=== PATIENT | female | born 1955 | race Caucasian/White ===

== ENCOUNTER 2019-05-07 03:31 | Emergency (ER) | payer OTHER ==
--- OUTSIDE RECORDS SUMMARY | 2019-05-07 03:34 | XMS REPORT ---
:1955 Author Organization eClinicalWorks Care Team Providers Name Role Phone Court Ford Provider Role Unavailable Allergies No Known Allergies Problems Problem Type Condition Code Onset Dates Condition Status Assessment Essential hypertension I10 Active Problem Hyperlipidemia E78.5 Active Problem Hypertension I10 Active Problem Essential hypertension I10 Active Problem Depression, unspecified depression F32.9 Active type Problem Abnormal heart rhythm I49.9 Active Problem Anxiety F41.9 Active Problem Hypercholesterolemia E78.00 Active Medications Medication Code Code Instructions Start End Date Status Dosage System Date Lisinopril-Hyd [facility] 49778570286 20-12.5 MG Active 1 tablet rochlorothiazi Orally Once a de day Results No Known Results Summary Purpose eClinicalWorks Submission
--- OUTSIDE RECORDS SUMMARY | 2019-05-07 03:34 | XMS REPORT ---
:1955 Author Organization eClinicalWorks Care Team Providers Name Role Phone Jamesalex Court Provider Role Unavailable Allergies, Adverse Reactions, Alerts Substance Reaction Event Type codeine Info Not Available Drug Allergy Problems Problem Type Condition Code Onset Dates Condition Status Problem Hypertension I10 Active Problem Anxiety F41.9 Active Assessment Depression, unspecified depression F32.9 Active type Assessment Mixed hyperlipidemia E78.2 Active Assessment Hyperglycemia R73.9 Active Problem Mixed hyperlipidemia E78.2 Active Problem Depression, unspecified depression F32.9 Active type Problem Hyperglycemia R73.9 Active Problem Essential hypertension I10 Active Problem Hyperlipidemia E78.5 Active Problem Abnormal heart rhythm I49.9 Active Problem Hypercholesterolemia E78.00 Active Medications Medication Code Code Instructions Start End Status Dosage System Date Date Prevagen [facility] 72360991550 10 MG Orally Active as directed Collagen Ultra [facility] 10224051693 - Orally Active as directed Cholest Off NDC 0 Active not defined Lisinopril-[place] [facility] 79098539731 20-12.5 MG Active 1 tablet chlorothiazide Orally Once a day Effexor XR [facility] 52982522139 75 MG Orally March 07, Active 1 capsule Once a day 2018 with food Rosuvastatin [facility] 54867419073 10 MG Orally May 02, Active 1 tablet in Calcium Once a day for 2019 evening high cholesterol Ferrous Sulfate [facility] 72979181193 325 (65 Fe) MG Active 1 tablet Orally Once a day Results Name Result Date Reference Range Unit Abnormality Flag HEMOGLOBIN A1C ----A1C 5.3% [id number] Summary Purpose eClinicalWorks Submission
--- OUTSIDE RECORDS SUMMARY | 2019-05-07 03:34 | XMS REPORT ---
:1955 Author Organization eClinicalWorks Care Team Providers Name Role Phone Logan Court Provider Role Unavailable Allergies, Adverse Reactions, Alerts Substance Reaction Event Type codeine Info Not Available Drug Allergy Problems Problem Type Condition Code Onset Dates Condition Status Assessment Hypercholesterolemia E78.00 Active Assessment Essential hypertension I10 Active Assessment Depression, unspecified depression F32.9 Active type Assessment Anxiety F41.9 Active Problem Hyperlipidemia E78.5 Active Problem Hypertension I10 Active Problem Essential hypertension I10 Active Problem Depression, unspecified depression F32.9 Active type Problem Abnormal heart rhythm I49.9 Active Problem Anxiety F41.9 Active Problem Hypercholesterolemia E78.00 Active Medications Medication Code Code Instructions Start End Status Dosage System Date Date Effexor XR [facility] 77070898523 37.5 MG Orally March 07, Active 1 capsule Once a day 2019 with food Ferrous [facility] 28588790515 325 (65 Fe) MG Active 1 tablet Sulfate Orally Once a day Collagen Ultra ND 05075569712 - Orally Active as directed Celexa [facility] 64484287284 20 MG Orally Inactive 2 tablet Once a day Lisinopril-Hyd [facility] 39240611169 20-12.5 MG Active 1 tablet rochlorothiazi Orally Once a de day Cholest Off NDC 0 Active not defined Prevagen [facility] 57366361879 10 MG Orally Active as directed Results No Known Results Summary Purpose eClinicalWorks Submission
--- OUTSIDE RECORDS SUMMARY | 2019-05-07 03:34 | XMS REPORT ---
:1955 Author Organization eClinicalWorks Care Team Providers Name Role Phone Court Ford Provider Role Unavailable Allergies No Known Allergies Problems Problem Type Condition Code Onset Dates Condition Status Problem Hyperlipidemia E78.5 Active Problem Hypertension I10 Active Problem Essential hypertension I10 Active Problem Depression, unspecified depression F32.9 Active type Problem Abnormal heart rhythm I49.9 Active Problem Anxiety F41.9 Active Problem Hypercholesterolemia E78.00 Active Medications No Known Medications Results No Known Results Summary Purpose eClinicalWorks Submission
[2019-05-07] MEDS ORDERED: FENTANYL CITR 100 MCG/2 ML ONE (04:08)
[2019-05-07] MEDS ORDERED: ONDANSETRON 4 MG/2 ML VIAL ONE (04:08)
[2019-05-07] MEDS ORDERED: NA CHLORIDE 0.9% 1,000 ML ONE (04:09)
[2019-05-07 04:26] LABS: Absolute Lymphocytes (CBC) 0.9 K/uL (0.7-4.9); Basophils % 0.4 % (0-1.3); Lymphocytes % 12.7 % (15.3-44.8); MPV 7.7 fL (7.6-11.3); RBC Red Blood Cell Count 4.49 M/uL (3.86-4.86)
[2019-05-07 04:38] LABS: Albumin 3.6 g/dL (3.4-5.0); Bilirubin Direct 0.1 mg/dL (0-0.2); Bilirubin Total 0.5 mg/dL (0.2-1.0); Potassium 3.4 mmol/L (3.5-5.1)
--- NOTE | 2019-05-07 06:07 | EDPHYS ---
Physician Documentation [facility] Name: Starr Verdugo Age: 64 yrs Sex: Female : 1955 Arrival Date: 05/07/2019 Time: 03:33 Bed 16 Private MD: Court Ford ED Physician Alok Martinez HPI: 05/07 05:28 This 64 yrs old Female presents to ER via Ambulatory with complaints of FOOD gs POISON. 05:28 The patient presents to the emergency department with nausea, vomiting, abdominal pain. gs Onset: The symptoms/episode began/occurred yesterday. Possible causes: bad food exposure. The symptoms are aggravated by nothing. The symptoms are alleviated by nothing. Associated signs and symptoms: Pertinent negatives: diarrhea, dysuria, fever. Severity of symptoms: At their worst the symptoms were severe in the emergency department the symptoms have improved moderately. The patient has experienced a previous episode. Historical: - Allergies: 03:57 Codeine; tr5 - Home Meds: 03:57 Crestor oral [Active]; tr5 - PMHx: 03:57 Depression; Hypertension; tr5 - PSHx: 03:57 Tubal ligation; tr5 - Immunization history:: Adult Immunizations up to date. - Social history:: Smoking status: Patient/guardian denies using tobacco, never smoked. - Ebola Screening: : No symptoms or risks identified at this time. ROS: 05:28 All other systems are negative. gs Exam: 05:28 Head/Face: Normocephalic, atraumatic. Eyes: Pupils equal round and reactive to light, gs extra-ocular motions intact. Lids and lashes normal. Conjunctiva and sclera are non-icteric and not injected. Cornea within normal limits. Periorbital areas with no swelling, redness, or edema. ENT: Nares patent. No nasal discharge, no septal abnormalities noted. Tympanic membranes are normal and external auditory canals are clear. Oropharynx with no redness, swelling, or masses, exudates, or evidence of obstruction, uvula midline. Mucous membranes moist. Neck: Trachea midline, no thyromegaly or masses palpated, and no cervical lymphadenopathy. Supple, full range of motion without nuchal rigidity, or vertebral point tenderness. No Meningismus. Chest/axilla: Normal chest wall appearance and motion. Nontender with no deformity. No lesions are appreciated. Cardiovascular: Regular rate and rhythm with a normal S1 and S2. No gallops, murmurs, or rubs. Normal PMI, no JVD. No pulse deficits. Respiratory: Lungs have equal breath sounds bilaterally, clear to auscultation and percussion. No rales, rhonchi or wheezes noted. No increased work of breathing, no retractions or nasal flaring. Back: No spinal tenderness. No costovertebral tenderness. Full range of motion. Skin: Warm, dry with normal turgor. Normal color with no rashes, no lesions, and no evidence of cellulitis. MS/ Extremity: Pulses equal, no cyanosis. Neurovascular intact. Full, normal range of motion. Neuro: Awake and alert, GCS 15, oriented to person, place, time, and situation. Cranial nerves II-XII grossly intact. Motor strength 5/5 in all extremities. Sensory grossly intact. Cerebellar exam normal. Normal gait. 05:28 Constitutional: The patient appears alert, awake, uncomfortable. 05:28 Abdomen/GI: Palpation: moderate abdominal tenderness, in the right upper quadrant and left upper quadrant, rebound tenderness, is not appreciated. 05:28 ECG was reviewed by the Attending Physician. Vital Signs: 03:57 BP 133 / 85; Pulse 62; Resp 16; Temp 97.8; Pulse Ox 100% on R/A; Weight 83.91 kg; tr5 Height 5 ft. 7 in. (170.18 cm); 05:00 BP 141 / 73; Pulse 60; Resp 16; Pulse Ox 100% ; tr5 03:57 Body Mass Index 28.97 (83.91 kg, 170.18 cm) tr5 MDM: 03:51 Patient medically screened. 05:28 Differential diagnosis: gastritis, pancreatitis, viral gastroenteritis, gs gastroenteritis. Data reviewed: vital signs, nurses notes, lab test result(s), EKG, radiologic studies. Counseling: I had a detailed discussion with the patient and/or guardian regarding: the historical points, exam findings, and any diagnostic results supporting the discharge/admit diagnosis, lab results, radiology results. Response to treatment: the patient's symptoms have markedly improved after treatment. 05/07 03:54 Order name: Basic Metabolic Panel; Complete Time: 04:41 05/07 03:54 Order name: CBC with Diff; Complete Time: 04:41 05/07 03:54 Order name: Hepatic Function; Complete Time: 04:41 05/07 03:54 Order name: Lipase; Complete Time: 04:41 05/07 03:54 Order name: CT Abd/Pelvis - IV Contrast Only 05/07 03:54 Order name: IV Saline Lock; Complete Time: 04:37 05/07 03:54 Order name: Labs collected and sent; Complete Time: 04:37 05/07 03:54 Order name: EKG - Nurse/Tech; Complete Time: 04:36 gs EC:28 Rate is 61 beats/min. Rhythm is regular. NC interval is normal. QRS interval is normal. gs QT interval is normal. Q waves are Old in leads V1, V2. T waves are Normal. No ST changes noted. Clinical impression: Abnormal EKG without significant change. Interpreted by me. Administered Medications: 04:30 Drug: NS 0.9% 1000 ml Route: IV; Rate: 1 bolus; Site: left forearm; aa1 05:58 Follow up: Response: No adverse reaction; IV Status: Completed infusion; IV Intake: tr5 1000ml 04:30 Drug: Zofran 4 mg Route: IVP; Site: left forearm; aa1 05:57 Follow up: Response: Nausea is decreased tr5 04:32 Drug: fentaNYL (PF) 25 mcg Route: IVP; Site: left forearm; aa1 05:57 Follow up: Response: Pain is decreased; RASS: Alert and Calm (0) tr5 Disposition: 05/07/19 06:06 Discharged to Home. Impression: Vomiting, Ileus, unspecified. - Condition is Stable. - Discharge Instructions: Nausea and Vomiting, Adult. - Prescriptions for Zofran 4 mg Oral Tablet - take 1 tablet by ORAL route every 12 hours As needed; 10 tablet. - Medication Reconciliation Form, Thank You Letter, Antibiotic Education, Prescription Opioid Use form. - Follow up: Private Physician; When: 2 - 3 days; Reason: Re-evaluation by your physician. Signatures: Dispatcher [employer] EDMS Esme Lucas RN RN aa1 Alok Martinez MD MD gs Rodriguez, Tommie RN RN tr5 Corrections: (The following items were deleted from the chart) 06:45 06:06 05/07/2019 06:06 Discharged to Home. Impression: Vomiting; Ileus, unspecified. tr5 Condition is Stable. Forms are Medication Reconciliation Form, Thank You Letter, Antibiotic Education, Prescription Opioid Use. Follow up: Private Physician; When: 2 - 3 days; Reason: Re-evaluation by your physician. gs
--- NOTE | 2019-05-07 06:07 | ER ---
Nurse's Notes [facility] Name: Starr Verdugo Age: 64 yrs Sex: Female : 1955 Arrival Date: 05/07/2019 Time: 03:33 Bed 16 Private MD: Court Ford Diagnosis: Vomiting;Ileus, unspecified Presentation: 05/07 03:54 Presenting complaint: Patient states: She has been experiencing nausea, vomiting and tr5 abdominal cramps since about 9 last night. She think it might be food poisoning. Transition of care: patient was not received from another setting of care. Onset of symptoms was May 07, 2019. Risk Assessment: Do you want to hurt yourself or someone else? Patient reports no desire to harm self or others. Initial Sepsis Screen: Does the patient meet any 2 criteria? No. Patient's initial sepsis screen is negative. Does the patient have a suspected source of infection? No. Patient's initial sepsis screen is negative. Care prior to arrival: None. 03:54 Method Of Arrival: Ambulatory tr5 03:54 Acuity: RODERICK 3 tr5 Triage Assessment: 03:57 General: Appears comfortable, Behavior is calm, cooperative. Pain: Complains of pain in tr5 abdomen. EENT: No signs and/or symptoms were reported regarding the EENT system. Neuro: Level of Consciousness is awake, alert, obeys commands, Oriented to person, place, time. Cardiovascular: Heart tones present Capillary refill < 3 seconds. Respiratory: Airway is patent Trachea midline Respiratory effort is even, unlabored, Respiratory pattern is regular, symmetrical, Breath sounds are clear bilaterally. GI: Reports upper abdominal pain, nausea, vomiting. : No signs and/or symptoms were reported regarding the genitourinary system. Derm: Skin is dry, Skin is normal, Skin temperature is warm. Musculoskeletal: Capillary refill < 3 seconds, Range of motion: intact in all extremities. Historical: - Allergies: 03:57 Codeine; tr5 - Home Meds: 03:57 Crestor oral [Active]; tr5 - PMHx: 03:57 Depression; Hypertension; tr5 - PSHx: 03:57 Tubal ligation; tr5 - Immunization history:: Adult Immunizations up to date. - Social history:: Smoking status: Patient/guardian denies using tobacco, never smoked. - Ebola Screening: : No symptoms or risks identified at this time. Screenin:00 Abuse screen: Denies threats or abuse. Nutritional screening: No deficits noted. tr5 Tuberculosis screening: No symptoms or risk factors identified. Fall Risk None identified. Assessment: 04:00 Reassessment: See triage. General:. tr5 04:30 Reassessment: Patient's granddaughter Radha left her contact number [phone]. 3 05:30 Reassessment: Patient and/or family updated on plan of care and expected duration. Pain tr5 level reassessed. Patient is alert, oriented x 3, equal unlabored respirations, skin warm/dry/pink. Pt appears to be sleeping in bed. Vital Signs: 03:57 BP 133 / 85; Pulse 62; Resp 16; Temp 97.8; Pulse Ox 100% on R/A; Weight 83.91 kg; tr5 Height 5 ft. 7 in. (170.18 cm); 05:00 BP 141 / 73; Pulse 60; Resp 16; Pulse Ox 100% ; tr5 03:57 Body Mass Index 28.97 (83.91 kg, 170.18 cm) tr5 ED Course: 03:33 Patient arrived in ED. cl3 03:34 [address] Ford MD is Private Physician. cl3 03:43 Nic Hi, RN is Primary Nurse. tr5 03:51 Alok Martinez MD is Attending Physician. gs 03:56 Triage completed. tr5 03:57 Arm band placed on. tr5 04:00 Placed in gown. Bed in low position. Call light in reach. tr5 04:30 Initial lab(s) drawn, by ut, sent to lab. Inserted saline lock: 20 gauge in left aa1 forearm, using aseptic technique. Blood collected. 04:35 EKG done, by ED staff, reviewed by Alok Martinez MD. aa1 05:14 CT completed. Patient tolerated procedure well. Patient moved to CT via stretcher. Patient moved back from CT. 05:21 CT Abd/Pelvis - IV Contrast Only In Process Unspecified. EDMS 06:26 No provider procedures requiring assistance completed. IV discontinued. tr5 Administered Medications: 04:30 Drug: NS 0.9% 1000 ml Route: IV; Rate: 1 bolus; Site: left forearm; aa1 05:58 Follow up: Response: No adverse reaction; IV Status: Completed infusion; IV Intake: tr5 1000ml 04:30 Drug: Zofran 4 mg Route: IVP; Site: left forearm; aa1 05:57 Follow up: Response: Nausea is decreased tr5 04:32 Drug: fentaNYL (PF) 25 mcg Route: IVP; Site: left forearm; aa1 05:57 Follow up: Response: Pain is decreased; RASS: Alert and Calm (0) tr5 Intake: 05:58 IV: 1000ml; Total: 1000ml. tr5 Outcome: 06:06 Discharge ordered by . 06:26 Discharged to home ambulatory. tr5 06:26 Condition: stable 06:26 Discharge instructions given to patient, Instructed on discharge instructions, follow up and referral plans. Demonstrated understanding of instructions, follow-up care. 06:45 Patient left the ED. tr5 Signatures: Dispatcher [employer] EDMS Esme Lucas RN RN aa1 Nomi Tanner Gregory, MD MD Jaimie Issa cc3 Nic Hi RN RN tr5 Angela Casas cl3
--- NOTE | 2019-05-07 09:43 | RAD REPORT ---
CLINICAL HISTORY: Abdominal pain. COMPARISON: None. TECHNIQUE: Axial CT imaging of the abdomen and pelvis performed with intravenous contrast. Reformatt ed coronal and sagittal images reviewed. A dose reduction technique was utilized with automated exposure control according to patient size. FINDINGS: LOWER THORAX: Lung bases are clear. Heart is normal in size. ABDOMEN: LIVER/GALLBLADDER: Mild decreased liver attenuation due to fatty infiltration. No liver mass or bili miladys dilatation. Normal gallbladder. SPLEEN/PANCREAS: Normal spleen. Normal pancreas. KIDNEYS/ADRENAL GLANDS: Normal adrenal glands. Normal right kidney. Anterior left renal cortical 1.3 cm stone. No hydronephrosis. No perinephric edema. RETROPERITONEAL VESSELS/NODES: Normal aorta and inferior vena cava caliber. There is a retroaortic l eft renal vein. No adenopathy. Normal mesenteric vessels. BOWEL: Normal stomach. The small bowel caliber is within normal limits. There are several fluid leve ls within the small bowel with several fecalized segments in the pelvis. There is mild wall thickenin g within a short segment of small bowel within the upper pelvis. Appendix is not visualized. Unremark able colon. MESENTERY/PERITONEUM: There is mild inferior mesenteric edema. There is no free air. No ascites. PELVIS: BLADDER/GENITAL ORGANS: Normal bladder. Normal uterus. PERITONEUM: Mild pelvic free fluid. No pelvic adenopathy. BONES AND SOFT TISSUES: Multilevel mild lumbar disc bulges. L4-5 and L5-S1 vacuum disc change. Mild lower lumbar facet arthropathy. Intact bony pelvis. Normal hips. IMPRESSION: 1. Mild small bowel enteritis and ileus. 2. Fatty liver. 3. Nonobstructing left renal 1.3 cm stone. 4. Mild pelvic free fluid.. Electronically signed by: Rosemary Bowles DO 05/07/2019 5:29 AM CDT Due to temporary technical issues with the PACS/Fluency reporting system, reports are being signed by the in house radiologist as a courtesy to ensure prompt reporting. The interpreting radiologist is f reemaly responsible for the content of the report.
--- NOTE | 2019-05-07 10:41 | EKG ---
Test Date: 2019-05-07 Test Time: 04:25:29 [employer] Floor [employer] Applier: APRIL MEASUREMENT RESULTS: Intervals: Rate: 61 SC: 160 QRSD: 76 QT: 428 QTc: 430 [place]: P: 43 SC: 160 QRS: 53 T: 34 INTERPRETIVE STATEMENTS: Normal sinus rhythm Septal infarct, age undetermined Abnormal ECG Compared to ECG 02/14/2002 12:56:00 Myocardial infarct finding now present Electronically Signed On 05-07-19 10:39:36 CDT by Heber De Leon
== END 2019-05-07 06:45 | disposition home or self-care (01) ==
LOC: ER 03:31
DX: K56.7 Ileus, unspecified (principal); K76.0 Fatty (change of) liver, not elsewhere classified; N20.0 Calculus of kidney; I10 Essential (primary) hypertension; F32.9 Major depressive disorder, single episode, unspecified; Z88.5 Allergy status to narcotic agent
CPT/HCPCS: 96361; 93005; 85025; 80048; 36415; 80076; 83690; 74177; 96375; 96374; 99284; Q9967; J3010; J7030; J2405

== ENCOUNTER 2019-09-27 23:39 | Emergency (ER) | payer MEDICARE ==
--- OUTSIDE RECORDS SUMMARY | 2019-09-27 23:42 | XMS REPORT ---
:1955 Author Organization eClinicalWorks Care Team Providers Name Role Phone Court Ford Provider Role Unavailable Allergies, Adverse Reactions, Alerts Substance Reaction Event Type codeine Info Not Available Drug Allergy Problems Problem Type Condition Code Onset Dates Condition Status Problem Hyperglycemia R73.9 Active Problem Right upper quadrant abdominal pain R10.11 Active Problem Ileus K56.7 Active Problem Other chronic pain G89.29 Active Assessment Hypercholesterolemia E78.00 Active Problem Left thigh pain M79.652 Active Assessment Anxiety F41.9 Active Assessment Depression, unspecified depression F32.9 Active type Problem Low back pain M54.5 Active Problem Vomiting, intractability of R11.10 Active vomiting not specified, presence of nausea not specified, unspecified vomiting type Problem Enteritis K52.9 Active Problem Left leg paresthesias R20.2 Active Problem Nausea and vomiting, intractability R11.2 Active of vomiting not specified, unspecified vomiting type Problem Anxiety F41.9 Active Problem Hypertension I10 Active Assessment Essential hypertension I10 Active Problem Hypercholesterolemia E78.00 Active Problem Abnormal heart rhythm I49.9 Active Problem Hyperlipidemia E78.5 Active Problem Depression, unspecified depression F32.9 Active type Problem Essential hypertension I10 Active Problem Mixed hyperlipidemia E78.2 Active Medications Medication Code Code Instructions Start End Status Dosage System Date Date Effexor XR [facility] 33413407925 37.5 MG Orally Active 1 capsule Once a day with food Pravastatin ND 29647490346 10 MG Orally May 09, Active 1 tablet Sodium Once a day 2019 Cholest Off NDC 0 Active not defined Ferrous Sulfate ND 09837298932 325 (65 Fe) MG Active 1 tablet Orally Once a day Prevagen ND 27717417139 10 MG Orally Active as directed Lisinopril-[place] ND 41210210724 20-12.5 MG Active 1 tablet chlorothiazide Orally Once a day Rosuvastatin ND 30266438573 10 MG Orally May 02, Active 1 tablet in Calcium Once a day for 2019 evening high cholesterol Collagen Ultra ND 97453180043 - Orally Active as directed Results No Known Results Summary Purpose eClinicalWorks Submission
--- OUTSIDE RECORDS SUMMARY | 2019-09-27 23:42 | XMS REPORT ---
:1955 Author Organization eClinicalWorks Care Team Providers Name Role Phone Court Ford Provider Role Unavailable Allergies No Known Allergies Problems Problem Type Condition Code Onset Dates Condition Status Problem Hyperglycemia R73.9 Active Problem Right upper quadrant abdominal pain R10.11 Active Problem Ileus K56.7 Active Problem Other chronic pain G89.29 Active Problem Left thigh pain M79.652 Active Problem Low back pain M54.5 Active Problem Vomiting, intractability of R11.10 Active vomiting not specified, presence of nausea not specified, unspecified vomiting type Problem Enteritis K52.9 Active Problem Left leg paresthesias R20.2 Active Problem Nausea and vomiting, intractability R11.2 Active of vomiting not specified, unspecified vomiting type Problem Anxiety F41.9 Active Problem Hypertension I10 Active Assessment Anxiety F41.9 Active Problem Hypercholesterolemia E78.00 Active Problem Abnormal heart rhythm I49.9 Active Problem Hyperlipidemia E78.5 Active Problem Depression, unspecified depression F32.9 Active type Problem Essential hypertension I10 Active Problem Mixed hyperlipidemia E78.2 Active Medications Medication Code System Code Instructions Start End Date Status Dosage Date Effexor XR [facility] 99031266654 37.5 MG Orally Active 1 capsule Once a day with food Results No Known Results Summary Purpose eClinicalWorks Submission
--- OUTSIDE RECORDS SUMMARY | 2019-09-27 23:42 | XMS REPORT ---
[...] Anxiety F41.9 Active Problem Hypertension I10 Active Problem Hypercholesterolemia E78.00 Active Problem Abnormal heart rhythm I49.9 Active Problem Hyperlipidemia E78.5 Active Problem Depression, unspecified depression F32.9 Active type Problem Essential hypertension I10 Active Problem Mixed hyperlipidemia E78.2 Active Medications No Known Medications Results No Known Results Summary Purpose eClinicalWorks Submission
[2019-09-28] MEDS ORDERED: NA CHLORIDE 0.9% 1,000 ML ONE (01:24)
[2019-09-28 01:34] LABS: Absolute Lymphocytes (CBC) 1.4 K/uL (0.7-4.9); Basophils % 1.2 % (0-1.3); Hematocrit 34.6 % (36.0-45.0); MPV 7.6 fL (7.6-11.3); RBC Red Blood Cell Count 3.67 M/uL (3.86-4.86)
[2019-09-28 02:13] LABS: Urine Bacteria 20-50 /HPF (<20); Urine RBC <5 /HPF (NONE SEEN)
[2019-09-28 02:14] LABS: Urine Amorphous Sediment 1+ /HPF (NONE SEEN); Urine Culture Reflex Order NOT NEEDED; Urine Mucus 3+ /HPF (NONE SEEN)
[2019-09-28 02:31] LABS: BUN Blood Urea Nitrogen 18 mg/dL (7-18); Bicarbonate 31 mmol/L (21-32); Glucose Level 119 mg/dL (74-106); Potassium 3.5 mmol/L (3.5-5.1); Sodium Level 142 mmol/L (136-145); Troponin (Emerg Dept Use Only) < 0.02 ng/mL (0.0-0.045)
--- NOTE | 2019-09-28 02:36 | ER ---
Nurse's Notes [facility] Name: Starr Verdugo Age: 64 yrs Sex: Female : 1955 Arrival Date: 09/27/2019 Time: 23:41 Bed 5 Private MD: Diagnosis: Malaise and fatigue;Urinary tract infection, site not specified Presentation: 09/27 23:54 Presenting complaint: Patient states: her blood pressure has been fluctuating all day, bb she is feeling SOB, and has a slight headache, she "just doesn't feel right". Transition of care: patient was not received from another setting of care. Onset of symptoms was September 27, 2019. Risk Assessment: Do you want to hurt yourself or someone else? Patient reports no desire to harm self or others. Initial Sepsis Screen: Does the patient meet any 2 criteria? No. Patient's initial sepsis screen is negative. Does the patient have a suspected source of infection? No. Patient's initial sepsis screen is negative. Care prior to arrival: None. 23:54 Method Of Arrival: Ambulatory bb 23:54 Acuity: RODERICK 3 bb Historical: - Allergies: 23:57 Codeine; bb - Home Meds: 23:57 lisinopril-hydrochlorothiazide oral oral [Active]; Effexor Oral [Active]; pravastatin bb oral oral [Active]; - PMHx: 23:57 Depression; Hypertension; bb - PSHx: 23:57 Tubal ligation; heart ablation; bb - Immunization history:: Adult Immunizations up to date. - Social history:: Smoking status: Patient/guardian denies using tobacco. - Ebola Screening: : No symptoms or risks identified at this time. Screenin/03 01:01 Abuse screen: Denies threats or abuse. Nutritional screening: No deficits noted. jd3 Tuberculosis screening: No symptoms or risk factors identified. Fall Risk Ambulatory Aid- None/Bed Rest/Nurse Assist (0 pts). Gait- Normal/Bed Rest/Wheelchair (0 pts) Mental Status- Oriented to own ability (0 pts). Total Esposito Fall Scale indicates No Risk (0-24 pts). Assessment: 00:00 General: Appears in no apparent distress. comfortable, Behavior is calm, cooperative, jd3 appropriate for age. Pain: Denies pain. Neuro: Level of Consciousness is awake, alert, obeys commands, Oriented to person, place, time, situation. Cardiovascular: Capillary refill < 3 seconds Patient's skin is warm and dry. Rhythm is regular. Respiratory: Reports pt reporting shortness of breath prior to arrival Airway is patent Respiratory effort is even, unlabored, Respiratory pattern is regular, symmetrical, the patient reports symptoms have resolved Denies cough, shortness of breath. GI: No signs and/or symptoms were reported involving the gastrointestinal system. : No signs and/or symptoms were reported regarding the genitourinary system. EENT: No signs and/or symptoms were reported regarding the EENT system. Derm: Skin is intact, Skin is dry, Skin is normal, Skin temperature is warm. Musculoskeletal: Circulation, motion, and sensation intact. Range of motion: intact in all extremities. 01:03 Reassessment: Patient appears in no apparent distress at this time. No changes from jd3 previously documented assessment. Patient and/or family updated on plan of care and expected duration. Pain level reassessed. Patient is alert, oriented x 3, equal unlabored respirations, skin warm/dry/pink. 02:09 Reassessment: Patient appears in no apparent distress at this time. No changes from jd3 previously documented assessment. Patient and/or family updated on plan of care and expected duration. Pain level reassessed. Patient is alert, oriented x 3, equal unlabored respirations, skin warm/dry/pink. Vital Signs: 09/27 23:57 BP 128 / 62; Pulse 81; Resp 16 S; Temp 97.7(TE); Pulse Ox 96% on R/A; Weight 86.18 kg bb (R); Height 5 ft. 7 in. (170.18 cm) (R); Pain 0/10; 01 01:04 BP 119 / 65; Pulse 75; Resp 18 S; Pulse Ox 97% on R/A; jd3 02:09 BP 134 / 75; Pulse 70; Resp 16 S; Pulse Ox 97% on R/A; jd3 09/27 23:57 Body Mass Index 29.76 (86.18 kg, 170.18 cm) bb ED Course: 09/27 23:41 Patient arrived in ED. cl3 23:53 Jese Lisa RN is Primary Nurse. jd3 23:56 Triage completed. bb 23:57 Arm band placed on Patient placed in an exam room, on a stretcher, on carpenter supervisor, bb on pulse oximetry. EKG completed in triage. Results shown to MD. 09/28 00:07 Edna Lucas FNP-C is PHCP. snw 00:07 Ghassan Mattson MD is Attending Physician. snw 00:16 Flu Sent. jd3 01:03 Patient has correct armband on for positive identification. Placed in gown. Bed in low jd3 position. Call light in reach. Side rails up X2. 01:10 Chest Pa And Lat (2 Views) XRAY In Process Unspecified. EDMS 01:20 Inserted saline lock: 20 gauge in right antecubital area, using aseptic technique. jd3 Blood collected. 03:19 No provider procedures requiring assistance completed. jd3 03:21 IV discontinued, intact, bleeding controlled, No redness/swelling at site. Pressure jd3 dressing applied. Administered Medications: 01:25 Drug: NS 0.9% 1000 ml Route: IV; Rate: 125 ml/hr; Site: right antecubital; jd3 03:20 Follow up: Response: No adverse reaction; IV Status: Order to discontinue infusion jd3 03:15 Drug: Rocephin 1 grams Route: IV; Rate: calculated rate; Site: right antecubital; jd3 03:19 Follow up: Response: Medication administered at discharge.; IV Status: Completed jd3 infusion Outcome: 02:34 Discharge ordered by MD. snw 03:21 Discharged to home ambulatory. jd3 03:21 Condition: stable 03:21 Discharge instructions given to patient, Instructed on discharge instructions, follow up and referral plans. medication usage, Demonstrated understanding of instructions, follow-up care, medications, Prescriptions given X 1. 03:21 Patient left the ED. jd3 Signatures: Dispatcher [employer] [facility] Edna Lucas FNP-C [employer] TESTER-Osvaldow Monserrat Marroquin RN RN Jese Doherty RN RN Angela Machado cl3 Corrections: (The following items were deleted from the chart) 02:09 01:03 Reassessment: Patient appears in no apparent distress at this time. No changes jd3 from previously documented assessment. Patient and/or family updated on plan of care and expected duration. Pain level reassessed. Patient is alert, oriented x 3, equal unlabored respirations, skin warm/dry/pink. jd3
--- NOTE | 2019-09-28 02:37 | EDPHYS ---
Physician Documentation [facility] Name: Starr Verdugo Age: 64 yrs Sex: Female : 1955 Arrival Date: 09/27/2019 Time: 23:41 Bed 5 Private MD: ED Physician Ghassan Mattson HPI: 09/28 01:16 This 64 yrs old Female presents to ER via Ambulatory with complaints of High snw Blood Pressure, Shortness Of Breath. 01:16 The patient has elevated blood pressure and discovered this at home, with a home snw device. Onset: The symptoms/episode began/occurred today, and became persistent. Modifying factors: The symptoms are aggravated by nothing. Associated signs and symptoms: Pertinent positives: sinus pressure, vague shortness of breath. The patient has not experienced similar symptoms in the past. Historical: - Allergies: 09/27 23:57 Codeine; bb - Home Meds: 23:57 lisinopril-hydrochlorothiazide oral oral [Active]; Effexor Oral [Active]; pravastatin bb oral oral [Active]; - PMHx: 23:57 Depression; Hypertension; bb - PSHx: 23:57 Tubal ligation; heart ablation; bb - Immunization history:: Adult Immunizations up to date. - Social history:: Smoking status: Patient/guardian denies using tobacco. - Ebola Screening: : No symptoms or risks identified at this time. ROS: 09/28 01:15 Eyes: Negative for injury, pain, redness, and discharge, ENT: Negative for injury, snw pain, and discharge, Neck: Negative for injury, pain, and swelling, Cardiovascular: Negative for chest pain, palpitations, and edema. Abdomen/GI: Negative for abdominal pain, nausea, vomiting, diarrhea, and constipation, Back: Negative for injury and pain, : Negative for injury, bleeding, discharge, and swelling, MS/Extremity: Negative for injury and deformity, Skin: Negative for injury, rash, and discoloration. Constitutional: Positive for malaise. Respiratory: Positive for shortness of breath, mild. Neuro: Positive for "sinus pressure". Exam: 01:15 Constitutional: This is a well developed, well nourished patient who is awake, alert, snw and in no acute distress. Head/Face: Normocephalic, atraumatic. Eyes: Pupils equal round and reactive to light, extra-ocular motions intact. Lids and lashes normal. Conjunctiva and sclera are non-icteric and not injected. Cornea within normal limits. Periorbital areas with no swelling, redness, or edema. ENT: Nares patent. No nasal discharge, no septal abnormalities noted. Tympanic membranes are normal and external auditory canals are clear. Oropharynx with no redness, swelling, or masses, exudates, or evidence of obstruction, uvula midline. Mucous membranes moist. Neck: Trachea midline, no thyromegaly or masses palpated, and no cervical lymphadenopathy. Supple, full range of motion without nuchal rigidity, or vertebral point tenderness. No Meningismus. Chest/axilla: Normal chest wall appearance and motion. Nontender with no deformity. No lesions are appreciated. Cardiovascular: Regular rate and rhythm with a normal S1 and S2. No gallops, murmurs, or rubs. Normal PMI, no JVD. No pulse deficits. Respiratory: Lungs have equal breath sounds bilaterally, clear to auscultation and percussion. No rales, rhonchi or wheezes noted. No increased work of breathing, no retractions or nasal flaring. Abdomen/GI: Soft, non-tender, with normal bowel sounds. No distension or tympany. No guarding or rebound. No evidence of tenderness throughout. Back: No spinal tenderness. No costovertebral tenderness. Full range of motion. Skin: Warm, dry with normal turgor. Normal color with no rashes, no lesions, and no evidence of cellulitis. MS/ Extremity: Pulses equal, no cyanosis. Neurovascular intact. Full, normal range of motion. Neuro: Awake and alert, GCS 15, oriented to person, place, time, and situation. Cranial nerves II-XII grossly intact. Motor strength 5/5 in all extremities. Sensory grossly intact. Cerebellar exam normal. Normal gait. Psych: Awake, alert, with orientation to person, place and time. Behavior, mood, and affect are within normal limits. Vital Signs: 09/27 23:57 BP 128 / 62; Pulse 81; Resp 16 S; Temp 97.7(TE); Pulse Ox 96% on R/A; Weight 86.18 kg bb (R); Height 5 ft. 7 in. (170.18 cm) (R); Pain 0/10; 09/28 01:04 BP 119 / 65; Pulse 75; Resp 18 S; Pulse Ox 97% on R/A; jd3 02:09 BP 134 / 75; Pulse 70; Resp 16 S; Pulse Ox 97% on R/A; jd3 09/27 23:57 Body Mass Index 29.76 (86.18 kg, 170.18 cm) bb MDM: 00:13 Patient medically screened. geraldine 02:40 Data reviewed: vital signs, nurses notes. Data interpreted: Pulse oximetry: on room air snw is 97 %. Interpretation: normal. Counseling: I had a detailed discussion with the patient and/or guardian regarding: the historical points, exam findings, and any diagnostic results supporting the discharge/admit diagnosis, lab results, the need for outpatient follow up, for definitive care, to return to the emergency department if symptoms worsen or persist or if there are any questions or concerns that arise at home. Special discussion: I have referred the patient to see his PCP for further evaluation of high blood pressure. Based on the history and exam findings, there is no indication for further emergent testing or inpatient evaluation. I discussed with the patient/guardian the need to see the primary care provider for further evaluation of the symptoms. 09/28 00:08 Order name: Flu snw 09/28 00:37 Order name: Influenza Screen (A EDMS 09/28 00:40 Order name: Urine Culture snw 09/28 00:40 Order name: Urine Microscopic Only; Complete Time: 02:14 snw 09/28 01:00 Order name: Troponin (emerg Dept Use Only); Complete Time: 02:32 snw 09/28 01:00 Order name: Chem 7; Complete Time: 02:32 snw 09/28 00:08 Order name: Chest Pa And Lat (2 Views) XRAY snw 09/28 00:14 Order name: EKG; Complete Time: 00:15 snw 09/28 00:14 Order name: EKG - Nurse/Tech; Complete Time: 00:16 snw 09/28 00:40 Order name: Urine Dipstick-Ancillary (obtain specimen); Complete Time: 01:25 snw 09/28 01:00 Order name: CBC with Diff; Complete Time: 01:40 snw 09/28 01:00 Order name: Blood Culture Adult (2) snw Administered Medications: 01:25 Drug: NS 0.9% 1000 ml Route: IV; Rate: 125 ml/hr; Site: right antecubital; jd3 03:20 Follow up: Response: No adverse reaction; IV Status: Order to discontinue infusion jd3 03:15 Drug: Rocephin 1 grams Route: IV; Rate: calculated rate; Site: right antecubital; jd3 03:19 Follow up: Response: Medication administered at discharge.; IV Status: Completed jd3 infusion Disposition: 09/28/19 02:34 Discharged to Home. Impression: Malaise and fatigue, Urinary tract infection, site not specified. - Condition is Stable. - Discharge Instructions: Urinary Tract Infection, Adult, Fatigue, Rehydration, Adult, Form - Blood Pressure Record Sheet. - Prescriptions for Augmentin 875- 125 mg Oral Tablet - take 1 tablet by ORAL route every 12 hours for 10 days; 20 tablet. - Medication Reconciliation Form, Thank You Letter, Antibiotic Education, Prescription Opioid Use form. - Follow up: Private Physician; When: 2 - 3 days; Reason: Recheck today's complaints, Continuance of care, Re-evaluation by your physician. Follow up: Emergency Department; When: As needed; Reason: Worsening of condition. Addendum: 10/01/2019 09:24 Co-signature as Attending Physician, Ghassan Mattson MD I agree with the assessment and c best plan of care. Signatures: Dispatcher [employer] [facility] Ghassan Mattson MD MD cha Therrien, Shelly, MIDDLE SCHOOL DIRECTOR-C [employer]DLE SCHOOL DIRECTOR-Csnw Monserrat Marroquin RN RN bb Davies, Jonathon, RN RN jd3 Corrections: (The following items were deleted from the chart) 09/28 03:21 02:34 09/28/2019 02:34 Discharged to Home. Impression: Malaise and fatigue; Urinary jd3 tract infection, site not specified. Condition is Stable. Forms are Medication Reconciliation Form, Thank You Letter, Antibiotic Education, Prescription Opioid Use. Follow up: Private Physician; When: 2 - 3 days; Reason: Recheck today's complaints, Continuance of care, Re-evaluation by your physician. Follow up: Emergency Department; When: As needed; Reason: Worsening of condition. snw
[2019-09-28] MEDS ORDERED: CEFTRIAXONE/SWI 1gm 1 GM/10 ML SYR ONE (03:13)
[2019-09-28 03:28] VITALS: TEMP 97.7
[2019-09-28 03:29] VITALS: O2SAT 97
[2019-09-28 03:31] VITALS: BP 134/75
--- NOTE | 2019-09-28 09:12 | RAD REPORT ---
EXAM DESCRIPTION: RAD - Chest Pa And Lat (2 Views) - 09/28/2019 12:44 am CLINICAL HISTORY: DYSPNEA COMPARISON: No comparisons TECHNIQUE: Frontal and lateral views of the chest were obtained. FINDINGS: The lungs are clear of focal finding. Interstitial pattern is prominent as a baseline. H eart size is normal and central vasculature is within normal limits. No pleural effusion or pneumoth orax seen. No acute bony finding noted. No aortic abnormality. IMPRESSION: No acute cardiopulmonary process. Mild prominent interstitial pattern.
--- NOTE | 2019-09-28 13:49 | EKG ---
Test Date: 2019-09-27 Test Time: 23:59:01 [employer]otive [employer] Coordinator: ABA MEASUREMENT RESULTS: Intervals: Rate: 72 IA: 164 QRSD: 74 QT: 390 QTc: 427 [place]: P: 47 IA: 164 QRS: 26 T: 29 INTERPRETIVE STATEMENTS: Normal sinus rhythm Normal ECG Compared to ECG 05/07/2019 04:25:29 Myocardial infarct finding no longer present Electronically Signed On 09-28-19 13:47:02 [employer] MEMBER by Darell Bustos
== END 2019-09-28 03:21 | disposition home or self-care (01) ==
LOC: ER 23:39
DX: N39.0 Urinary tract infection, site not specified (principal); R53.81 Other malaise; R53.83 Other fatigue; I10 Essential (primary) hypertension; F32.9 Major depressive disorder, single episode, unspecified; Z88.5 Allergy status to narcotic agent
CPT/HCPCS: 96361; 93005; 87040 ×2; 87088; 85025; 87086; 80048; 36415; 81015; 84484; 87804 ×2; 71046; 96374; 99284; J0696; J7030

== ENCOUNTER 2024-12-17 20:54 | Emergency (ER) | payer MEDICARE ==
--- OUTSIDE RECORDS SUMMARY | 2024-12-17 21:01 | XMS REPORT | Continuity of Care Document ---
Author Name Unknown Address [address] [facility] [place] [address] [facility] Address [address] [facility] [place] [address] Care Team Providers [facility] Name Role Phone Joanie AVILA, Fareed Ruffin Primary Care Physician Michael Chairez Attending Clinician Unavailable Alok Cole Attending Clinician UnavailCourt [place] Attending Clinician Unavailable Gonzalo Morris Attending Clinician Unavailable Rick Witt Attending Clinician Isabel Alford Attending Clinician Peggy Mosqueda Attending Clinician [phone] [place]var[place] Attending Clinician Unavailable Doctor Unassigned, Boring Attending Clinician U navailable Nurse, Adc Pob Immunization Attending Clinician Unavailable Maxwell Hilario DO Attending Clinician [phone] Mj Joy MD Attending Clinician Nasim Perez MD Attending Clinician NASIM PEREZ Attending Clinician Unavailable Alok Cole Admitting Clinician UnavailGonzalo Peres Admitting Clinician Unavailable Alvarado_A Admitting Clinician Unavailable MJ JOY Admitting Clinician Unavailable Payers Payer Name Policy Type Policy Number Effective Date Expirati on Date Source [employer] (MEDICARE REPLACEMENT HMO) [id number] 2022 00:00:00 AARP Medicare Complete 53 [id number] [facility] Problems Condition Name Condition Details Condition Category Status Onset Date Resolution Date Last Treatment Date Treating Clinician Comments Source [id number] Paroxysmal SVT (supravent ricular tachycardi a) Problem [facility] [id number] SVT (supravent ricular tachycardi a) Problem [facility] [id number] Body mass index [BMI] 32.0-32.9, adult Problem [facility] [id number] Atrial fibrillati on, unspecifie d type Problem [facility] [id number] Other obesity due to excess calories Problem [facility] Arterioscl erotic heart disease Coronary artery disease involving [place] coronary artery of [place] heart, unspecifie d whether angina present Problem [facility] [id number] Tear of right rotator cuff, unspecifie d tear extent, unspecifie d whether traumatic Problem [facility] [id number] Depression , unspecifie d depression type Problem [facility] Cardiac arrhythmia Abnormal heart rhythm Problem [facility] Anxiety Anxiety Problem [facility] [id number] Complete tear of right rotator cuff, unspecifie d whether traumatic Problem [facility] [id number] Hyperchole sterolemia Problem [facility] [id number] Left leg paresthesi as Problem [facility] [id number] Low back pain Problem [facility] [id number] Mixed hyperlipid emia Problem [facility] [id number] Hyperglyce corey Problem [facility] [id number] Nausea and vomiting, intractabi lity of vomiting not specified, unspecifie d vomiting type Problem [facility] [id number] Vomiting, intractabi lity of vomiting not specified, presence of nausea not specified, unspecifie d vomiting type Problem [facility] [id number] Right upper quadrant abdominal pain Problem [facility] 53181655 Enteritis Problem Commo n [facility] [id number] Left thigh pain Problem [facility] [id number] Ileus Problem [facility] 34026213 Other chronic pain Problem [facility] [id number] Colitis Problem [facility] [id number] Paroxysmal atrial fibrillati on Problem [facility] Hyperlipid emia Hyperlipid emia Problem [facility] [id number] 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, including shoulder Problem [facility] Hypertensi on Hypertensi on Problem [facility] [id number] Essential hypertensi on Problem [facility] [id number] Peripheral edema Problem [facility] 120425158 Family history of colon cancer Problem [facility] 49729265 Lower GI bleed Problem [facility] 32028457 Skin lesion Problem [facility] [id number] Stage 3a chronic kidney disease Problem [facility] 88328352 Renal calculus, left Problem [facility] Allergies, Adverse Reactions, Alerts Allergy Name Allergy Type Status Severity Reaction(s) Onset Date Inactive Date Treating Clinician Comments Source codeine DA Active SV NAUSEA 03-23 00:00: 00 [facility] codeine DA Active SV 03-23 00:00: 00 [facility] Codeine Propensi ty to adverse reaction to drug Inactiv e 02-24 00:00: 00 [facility] NO KNOWN ALLERGIE S Drug Class Active [facility] Codeine Drug Allergy Active [facility] Codeine Codeine Active Unknown [facility] Social History Social Habit Start Date Stop Date Quantity Comments Source History of Tobacco Use [facility] Sex Assigned At [facility] Smoking Status Start Date Stop Date Source Tobacco smoking consumption unknown [facility] Never Smoker [facility] Medications Ordered Medication Name Filled Medication Name Start Date Stop Date Current Medication? Ordering Clinician Indication Dosage Frequency Signature (SIG) Comments Components Source metoprolol succinate ER 50 mg tablet,exte nded release 24 hr 1-30 00:00: 00 Yes mg [facility] lisinopril 20 mg-hydrochl orothiazide 25 mg tablet 1- 00:00: 00 Yes mg [facility]fred Riddle atorvastati n 20 mg tablet 1-15 00:00: 00 Yes mg [facility]fred Riddle venlafaxine ER 150 mg capsule,ext ended release 24 hr 1- 00:00: 00 Yes mg [facility] Meclizine HCl 25 MG Meclizine HCl 25 MG 4-17 00:00: 00 No 1{table t_as_ne eded} BID Meclizine HCl 25 MG BUPivacaine HCl BUPivacaine HCl 2022-09 2-05 00:00: 00 No 5mL [facility] Kenalog (Triamcinol one) Kenalog (Triamcinol one) 2022-09 2-05 00:00: 00 No 1mL [facility] INSTILL 2 DROPS INTO AFFECTED EYE EVERY 6 HOURS WHILE AWAKE NEEDED FOR IRRITATION OR DRYNESS 05-02 00:00: 00 Yes [facility] R[facility] INSTILL 2 DROPS INTO AFFECTED EYE EVERY 4 HOURS WHILE AWAKE FOR 5 DAYS 05-02 00:00: 00 Yes [facility]fred Riddle Dose Unknown 18 00:00: 00 Yes [facility]fred Riddle atorvastati n 40 mg tablet -18 00:00: 00 Yes 1mg [facility] Riddle Effexor XR 150 mg capsule,ext ended release 10-13 00:00: 00 Yes 1mg [facility] Riddle citalopram 40 mg tablet 10-04 00:00: 00 Yes 1mg [facility]fred Riddle Dose Unknown 10-04 00:00: 00 Yes [facility] Riddle lisinopril 20 mg-hydrochl orothiazide 12.5 mg tablet 06-21 00:00: 00 Yes 1mg [facility] citalopram 20 mg tablet 06-21 00:00: 00 Yes 1mg [facility] R[facility] sulfamethox azole 800 mg-trimetho prim 160 mg tablet 06-21 00:00: 00 Yes 1mg [facility] citalopram 20 mg tablet 12-27 00:00: 00 Yes 1mg [facility] lisinopril 20 mg-hydrochl orothiazide 12.5 mg tablet 12-27 00:00: 00 Yes 1mg [facility] lisinopril 20 mg-hydrochl orothiazide 12.5 mg tablet 09-27 00:00: 00 Yes 1mg [facility] Riddle citalopram 20 mg tablet 09-27 00:00: 00 Yes 1mg [facility] Riddle citalopram 20 mg tablet 12-20 00:00: 00 Yes 1mg [facility] Riddle lisinopril 20 mg-hydrochl orothiazide 12.5 mg tablet 12-20 00:00: 00 Yes 1mg [facility] Riddle citalopram 20 mg tablet 12-10 00:00: 00 Yes 1mg [facility] Riddle lisinopril 20 mg-hydrochl orothiazide 12.5 mg tablet 12-10 00:00: 00 Yes 1mg [facility] R[facility] lisinopril 20 mg-hydrochl orothiazide 12.5 mg tablet 06-14 00:00: 00 Yes 1mg [facility] Riddle citalopram 20 mg tablet 06-14 00:00: 00 Yes 1mg [facility] Riddle lisinopril 20 mg-hydrochl orothiazide 12.5 mg tablet 11-11 00:00: 00 Yes 1mg [facility] Riddle citalopram 20 mg tablet 11-11 00:00: 00 Yes 1mg [facility] Riddle lisinopril 20 mg-hydrochl orothiazide 12.5 mg tablet 06-03 00:00: 00 Yes 1mg [facility] Riddle citalopram 20 mg tablet 06-03 00:00: 00 Yes 1mg [facility]fred Riddle citalopram 20 mg tablet 02-24 00:00: 00 Yes 1mg [facility] Riddle lisinopril 20 mg-hydrochl orothiazide 12.5 mg tablet 02-24 00:00: 00 Yes 1mg [facility] Riddle naproxen 500 mg tablet 02-24 00:00: 00 Yes 1mg [facility]fred Riddle metoprolol succinate er 100 mg tablet er 24 hr metoprolol succinate er 100 mg tablet er 24 hr Yes [facility] lisinopril- hydrochloro thiazide 20-12.5 mg tablet lisinopril- hydrochloro thiazide 20-12.5 mg tablet Yes [facility] flecainide acetate 100 mg tablet flecainide acetate 100 mg tablet Yes [facility] ELIQUIS 2.5 MG TABLET ELIQUIS 2.5 MG TABLET Yes [facility] atorvastati n calcium 20 mg tablet atorvastati n calcium 20 mg tablet Yes [facility] Lisinopril- hydroCHLORO thiazide 20-12.5 MG Lisinopril- hydroCHLORO thiazide 20-12.5 MG No 1{table t} QD Lisinopril -hydroCHLO ROthiazide 20-12.5 MG Atorvastati n Calcium 20 MG Atorvastati n Calcium 20 MG No 1{table t} QD Atorvastat in Calcium 20 MG Metoprolol Succinate ER 100 MG Metoprolol Succinate ER 100 MG No 1{table t} QD Metoprolol Succinate ER 100 MG Ondansetron HCl 4 MG Ondansetron HCl 4 MG No TID Ondansetro n HCl 4 MG Iron Iron No Iron Eliquis 2.5 MG Eliquis 2.5 MG No 1{table t} QD Eliquis 2.5 MG Flecainide Acetate 100 MG Flecainide Acetate 100 MG No .5{tabl et} BID Flecainide Acetate 100 MG Effexor XR 150 MG Effexor XR 150 MG No 1{capsu le_with _food} QD Effexor XR 150 MG Nortriptyli ne HCl 10 MG Nortriptyli ne HCl 10 MG No Nortriptyl ine HCl 10 MG venlafaxine hcl er 150 mg capsule er 24 hr venlafaxine hcl er 150 mg capsule er 24 hr Yes [facility] Immunizations Ordered Immunization Name Filled Immunization Name Date Status Comments Source SARS-COV-2 COVID-19 MODERNA BOOSTER VACCINE 2021-07-21 00:00:00 Completed [facility] SARS-COV-2 COVID-19 MODERNA 0.25ML BOOSTER VACCINE 2021-07-21 00:00:00 Completed [facility] Moderna COVID-19 Vaccine Moderna COVID-19 Vaccine 2020-11-21 00:00:00 Completed [facility] Moderna COVID-19 Vaccine Moderna COVID-19 Vaccine 2020-10-25 00:00:00 Completed [facility] Pneumovax (PPSV23) Pneumovax (PPSV23) 2020-07-21 09:30:00 Completed [facility] Pneumovax (PPSV23) Pneumovax (PPSV23) 2020-07-21 09:30:00 Completed [facility] Pneumovax (PPSV23) Pneumovax (PPSV23) 2020-07-21 09:30:00 Completed [facility] Pneumovax (PPSV23) Pneumovax (PPSV23) 2020-07-21 09:30:00 Completed [facility] Pneumovax (PPSV23) Pneumovax (PPSV23) 2020-07-21 09:30:00 Completed [facility] FLUZONE HIGH DOSE OVER 65 FLUZONE HIGH DOSE OVER 65 2020-06-20 12:23:00 Completed [facility] FLUZONE HIGH DOSE OVER 65 FLUZONE HIGH DOSE OVER 65 2020-06-20 12:23:00 Completed [facility] FLUZONE HIGH DOSE OVER 65 FLUZONE HIGH DOSE OVER 65 2020-06-20 12:23:00 Completed [facility] FLUZONE HIGH DOSE OVER 65 FLUZONE HIGH DOSE OVER 65 2020-06-20 12:23:00 Completed [facility] FLUZONE HIGH DOSE OVER 65 FLUZONE HIGH DOSE OVER 65 2020-06-20 12:23:00 Completed [facility] Pneumovax (PPSV23) Pneumovax (PPSV23) Unknown Completed [facility] FLUZONE HIGH DOSE OVER 65 FLUZONE HIGH DOSE OVER 65 Unknown Completed [facility] Pneumovax (PPSV23) Pneumovax (PPSV23) Unknown Completed [facility] FLUZONE HIGH DOSE OVER 65 FLUZONE HIGH DOSE OVER 65 Unknown Completed [facility] Pneumovax (PPSV23) Pneumovax (PPSV23) Unknown Completed [facility] FLUZONE HIGH DOSE OVER 65 FLUZONE HIGH DOSE OVER 65 Unknown Completed [facility] Pneumovax (PPSV23) Pneumovax (PPSV23) Unknown Completed [facility] FLUZONE HIGH DOSE OVER 65 FLUZONE HIGH DOSE OVER 65 Unknown Completed [facility] Pneumovax (PPSV23) Pneumovax (PPSV23) Unknown Completed [facility] FLUZONE HIGH DOSE OVER 65 FLUZONE HIGH DOSE OVER 65 Unknown Completed [facility] Pneumovax (PPSV23) Pneumovax (PPSV23) Unknown Completed [facility] FLUZONE HIGH DOSE OVER 65 FLUZONE HIGH DOSE OVER 65 Unknown Completed [facility] Pneumovax (PPSV23) Pneumovax (PPSV23) Unknown Completed [facility] FLUZONE HIGH DOSE OVER 65 FLUZONE HIGH DOSE OVER 65 Unknown Completed [facility] Pneumovax (PPSV23) Pneumovax (PPSV23) Unknown Completed [facility] FLUZONE HIGH DOSE OVER 65 FLUZONE HIGH DOSE OVER 65 Unknown Completed [facility] Pneumovax (PPSV23) Pneumovax (PPSV23) Unknown Completed [facility] FLUZONE HIGH DOSE OVER 65 FLUZONE HIGH DOSE OVER 65 Unknown Completed [facility] Pneumovax (PPSV23) Pneumovax (PPSV23) Unknown Completed [facility] FLUZONE HIGH DOSE OVER 65 FLUZONE HIGH DOSE OVER 65 Unknown Completed [facility] Pneumovax (PPSV23) Pneumovax (PPSV23) Unknown Completed [facility] FLUZONE HIGH DOSE OVER 65 FLUZONE HIGH DOSE OVER 65 Unknown Completed [facility] Pneumovax (PPSV23) Pneumovax (PPSV23) Unknown Completed [facility] FLUZONE HIGH DOSE OVER 65 FLUZONE HIGH DOSE OVER 65 Unknown Completed [facility] Pneumovax (PPSV23) Pneumovax (PPSV23) Unknown Completed [facility] FLUZONE HIGH DOSE OVER 65 FLUZONE HIGH DOSE OVER 65 Unknown Completed [facility] Prevnar 20 (PCV20) Prevnar 20 (PCV20) Unknown Completed [facility] Pneumovax (PPSV23) Pneumovax (PPSV23) Unknown Completed [facility] FLUZONE HIGH DOSE OVER 65 FLUZONE HIGH DOSE OVER 65 Unknown Completed [facility] Prevnar 20 (PCV20) Prevnar 20 (PCV20) Unknown Completed [facility] Pneumovax (PPSV23) Pneumovax (PPSV23) Unknown Completed [facility] FLUZONE HIGH DOSE OVER 65 FLUZONE HIGH DOSE OVER 65 Unknown Completed [facility] Prevnar 20 (PCV20) Prevnar 20 (PCV20) Unknown Completed [facility] Pneumovax (PPSV23) Pneumovax (PPSV23) Unknown Completed [facility] FLUZONE HIGH DOSE OVER 65 FLUZONE HIGH DOSE OVER 65 Unknown Completed [facility] Prevnar 20 (PCV20) Prevnar 20 (PCV20) Unknown Completed [facility] Pneumovax (PPSV23) Pneumovax (PPSV23) Unknown Completed [facility] FLUZONE HIGH DOSE OVER 65 FLUZONE HIGH DOSE OVER 65 Unknown Completed [facility] Prevnar 20 (PCV20) Prevnar 20 (PCV20) Unknown Completed [facility] Pneumovax (PPSV23) Pneumovax (PPSV23) Unknown Completed [facility] FLUZONE HIGH DOSE OVER 65 FLUZONE HIGH DOSE OVER 65 Unknown Completed [facility] Prevnar 20 (PCV20) Prevnar 20 (PCV20) Unknown Completed [facility] Pneumovax (PPSV23) Pneumovax (PPSV23) Unknown Completed [facility] FLUZONE HIGH DOSE OVER 65 FLUZONE HIGH DOSE OVER 65 Unknown Completed [facility] Prevnar 20 (PCV20) Prevnar 20 (PCV20) Unknown Completed [facility] Pneumovax (PPSV23) Pneumovax (PPSV23) Unknown Completed [facility] FLUZONE HIGH DOSE OVER 65 FLUZONE HIGH DOSE OVER 65 Unknown Completed [facility] Prevnar 20 (PCV20) Prevnar 20 (PCV20) Unknown Completed [facility] Pneumovax (PPSV23) Pneumovax (PPSV23) Unknown Completed [facility] FLUZONE HIGH DOSE OVER 65 FLUZONE HIGH DOSE OVER 65 Unknown Completed [facility] Prevnar 20 (PCV20) Prevnar 20 (PCV20) Unknown Completed [facility] Pneumovax (PPSV23) Pneumovax (PPSV23) Unknown Completed [facility] FLUZONE HIGH DOSE OVER 65 FLUZONE HIGH DOSE OVER 65 Unknown Completed [facility] Prevnar 20 (PCV20) Prevnar 20 (PCV20) Unknown Completed [facility] Pneumovax (PPSV23) Pneumovax (PPSV23) Unknown Completed [facility] FLUZONE HIGH DOSE OVER 65 FLUZONE HIGH DOSE OVER 65 Unknown Completed [facility] Vital Signs Vital Name Observation Time Observation Value Comments S ource height 2024-10-19 08:00:00 67.5 [in_i] Comm on [facility] weight 2024-10-19 08:00:00 193.6 [lb_av] Co on [facility] temperature 2024-10-19 08:00:00 95 [degF] Comm on [facility] bmi 2024-10-19 08:00:00 29.87 kg/m2 Comm on [facility] oximetry 2024-10-19 08:00:00 96 % Commo n [facility] respiratory rate 2024-10-19 08:00:00 18 /min Common [facility] blood pressure systolic 2024-10-19 08:00:00 114 mm[Hg] Common [facility] blood pressure diastolic 2024-10-19 08:00:00 58 mm[Hg] Common [facility] height 2024-10-19 08:00:00 67.5 [in_i] Comm on [facility] weight 2024-10-19 08:00:00 193.6 [lb_av] Co on [facility] temperature 2024-10-19 08:00:00 97.0 [degF] Com mon [facility] bmi 2024-10-19 08:00:00 29.87 kg/m2 Comm on [facility] oximetry 2024-10-19 08:00:00 97 % Commo n [facility] blood pressure systolic 2024-10-19 08:00:00 114 mm[Hg] Common [facility] blood pressure diastolic 2024-10-19 08:00:00 58 mm[Hg] Common [facility] height 2024-06-13 11:20:00 67.5 [in_i] Comm on [facility] weight 2024-06-13 11:20:00 184.2 [facility]:20:00 97.0 [degF] Com mon [facility] bmi 2024-06-13 11:20:00 28.42 kg/m2 Comm on [facility] oximetry 2024-06-13 11:20:00 99 % Commo n [facility] respiratory rate 2024-06-13 11:20:00 18 /min Common [facility] blood pressure systolic 2024-06-13 11:20:00 133 mm[Hg[facility] pressure diastolic 2024-06-13 11:20:00 65 mm[Hg] [facility] height 2024-05-14 08:30:00 67.5 [in_i] Comm on [facility] weight 2024-05-14 08:30:00 183.4 [lb_av] Co mmon [facility] temperature 2024-05-14 08:30:00 97 [degF] Comm on [facility] bmi 2024-05-14 08:30:00 28.3 kg/m2 Commo n [facility] oximetry 2024-05-14 08:30:00 98 % Commo n [facility] blood pressure systolic 2024-05-14 08:30:00 136 mm[Hg] [facility] blood pressure diastolic 2024-05-14 08:30:00 82 mm[Hg] [facility] height 2024-05-14 08:30:00 67.5 [in_i] Comm on [facility] weight 2024-05-14 08:30:00 183.4 [lb_av] Co mmon [facility] temperature 2024-05-14 08:30:00 97 [degF] Comm on [facility] bmi 2024-05-14 08:30:00 28.3 kg/m2 Commo n [facility] oximetry 2024-05-14 08:30:00 98 % Commo n [facility] blood pressure systolic 2024-05-14 08:30:00 136 mm[Hg] Common Spiri t [facility] blood pressure diastolic 2024-05-14 08:30:00 82 mm[Hg] [facility] height 2024-02-10 11:40:00 67.5 [in_i] Comm on [facility] weight 2024-02-10 11:40:00 188 [lb_av] Comm on [facility] temperature 2024-02-10 11:40:00 97.8 [degF] Com mon [facility] bmi 2024-02-10 11:40:00 29.01 kg/m2 Comm on [facility] blood pressure systolic 2024-02-10 11:40:00 126 mm[Hg] [facility] blood pressure diastolic 2024-02-10 11:40:00 70 mm[Hg] Common [facility] height 2024-01-11 08:10:00 67.5 [in_i] Comm on [facility] weight 2024-01-11 08:10:00 198 [lb_av] Comm on [facility] temperature 2024-01-11 08:10:00 98 [degF] Comm on [facility] bmi 2024-01-11 08:10:00 30.55 kg/m2 Comm on [facility] blood pressure systolic 2024-01-11 08:10:00 123 mm[Hg] [facility] blood pressure diastolic 2024-01-11 08:10:00 76 mm[Hg] Common [facility] height 2023-10-25 14:00:00 67.5 [in_i] Comm on [facility] weight 2023-10-25 14:00:00 190 [lb_av] Comm on [facility] temperature 2023-10-25 14:00:00 97.8 [degF] Com [facility] bmi 2023-10-25 14:00:00 29.32 kg/m2 Comm on [facility] blood pressure systolic 2023-10-25 14:00:00 124 mm[Hg] Common Spiri t [facility] blood pressure diastolic 2023-10-25 14:00:00 76 mm[Hg] [facility] height 2023-10-13 08:10:00 67.5 [in_i] Comm on [facility] weight 2023-10-13 08:10:00 187.8 [lb_av] Co mmon [facility] temperature 2023-10-13 08:10:00 96.7 [degF] Com [facility] bmi 2023-10-13 08:10:00 28.98 kg/m2 Comm on [facility] oximetry 2023-10-13 08:10:00 99 % Commo n [facility] blood pressure systolic 2023-10-13 08:10:00 124 mm[Hg] [facility] blood pressure diastolic 2023-10-13 08:10:00 78 mm[Hg] [facility] height 2023-10-13 08:20:00 67.5 [in_i] Comm on [facility] weight 2023-10-13 08:20:00 187.8 [lb_av] Co mmon [facility] temperature 2023-10-13 08:20:00 96.7 [degF] Com [facility] bmi 2023-10-13 08:20:00 28.98 kg/m2 Comm on [facility] oximetry 2023-10-13 08:20:00 99 % Commo n [facility] respiratory rate 2023-10-13 08:20:00 17 /min Common [facility] blood pressure systolic 2023-10-13 08:20:00 124 mm[Hg] Common Spiri t [facility] blood pressure diastolic 2023-10-13 08:20:00 78 mm[Hg] [facility] height 2023-08-30 13:30:00 67.5 [in_i] Comm on [facility] weight 2023-08-30 13:30:00 191 [lb_av] Comm on [facility] bmi 2023-08-30 13:30:00 29.47 kg/m2 Comm on [facility] blood pressure systolic 2023-08-30 13:30:00 133 mm[Hg] [facility] blood pressure diastolic 2023-08-30 13:30:00 71 mm[Hg] Common [facility] height 2023-08-09 10:30:00 67.5 [in_i] Comm on [facility] weight 2023-08-09 10:30:00 191 [lb_av] Comm on [facility] temperature 2023-08-09 10:30:00 97.4 [degF] Com mon [facility] bmi 2023-08-09 10:30:00 29.47 kg/m2 Comm on [facility] blood pressure systolic 2023-08-09 10:30:00 120 mm[Hg] [facility] blood pressure diastolic 2023-08-09 10:30:00 76 mm[Hg] Common [facility] height 2023-06-08 16:10:00 67.5 [in_i] Comm on [facility] weight 2023-06-08 16:10:00 195.0 [lb_av] Co mmon [facility] temperature 2023-06-08 16:10:00 97.7 [degF] Com mon [facility] bmi 2023-06-08 16:10:00 30.09 kg/m2 Comm on [facility] oximetry 2023-06-08 16:10:00 97 % Commo n [facility] respiratory rate 2023-06-08 16:10:00 18 /min Common [facility] blood pressure systolic 2023-06-08 16:10:00 139 mm[Hg] [facility] blood pressure diastolic 2023-06-08 16:10:00 68 mm[Hg] [facility] height 2023-03-04 08:30:00 67.5 [in_i] Comm on [facility] weight 2023-03-04 08:30:00 193 [lb_av] Comm on [facility] temperature 2023-03-04 08:30:00 97.0 [degF] Com mon [facility] bmi 2023-03-04 08:30:00 29.78 kg/m2 Comm on [facility] oximetry 2023-03-04 08:30:00 98 % Commo n [facility] respiratory rate 2023-03-04 08:30:00 16 /min Common [facility] blood pressure systolic 2023-03-04 08:30:00 110 mm[Hg] [facility] blood pressure diastolic 2023-03-04 08:30:00 74 mm[Hg] Common [facility] height 2022-11-04 09:30:00 67.5 [in_i] Comm on [facility] weight 2022-11-04 09:30:00 190.9 [lb_av] Co mmon [facility] temperature 2022-11-04 09:30:00 97.6 [degF] Com mon [facility] bmi 2022-11-04 09:30:00 29.45 kg/m2 Comm on [facility] oximetry 2022-11-04 09:30:00 98 % Commo n [facility] respiratory rate 2022-11-04 09:30:00 18 /min Common [facility] blood pressure systolic 2022-11-04 09:30:00 126 mm[Hg] [facility] blood pressure diastolic 2022-11-04 09:30:00 69 mm[Hg] Common [facility] height 2022-11-04 10:30:00 67.5 [in_i] Comm on [facility] weight 2022-11-04 10:30:00 190.9 [lb_av] Co mmon [facility] temperature 2022-11-04 10:30:00 97.6 [degF] Com mon [facility] bmi 2022-11-04 10:30:00 29.45 kg/m2 Comm on [facility] oximetry 2022-11-04 10:30:00 98 % Commo n [facility] respiratory rate 2022-11-04 10:30:00 18 /min [facility] blood pressure systolic 2022-11-04 10:30:00 126 mm[Hg] Common [facility] blood pressure diastolic 2022-11-04 10:30:00 69 mm[Hg] Common [facility] height 2022-06-30 08:40:00 67.5 [in_i] Comm on [facility] weight 2022-06-30 08:40:00 193 [lb_av] Comm on [facility] temperature 2022-06-30 08:40:00 97.5 [degF] Com mon [facility] bmi 2022-06-30 08:40:00 29.78 kg/m2 Comm on [facility] oximetry 2022-06-30 08:40:00 98 % Commo n [facility] respiratory rate 2022-06-30 08:40:00 16 /min Common [facility] blood pressure systolic 2022-06-30 08:40:00 122 mm[Hg] Common [facility] blood pressure diastolic 2022-06-30 08:40:00 60 mm[Hg] Common [facility] height 2022-03-30 10:20:00 66.5 [in_i] Comm on [facility] weight 2022-03-30 10:20:00 196.5 [lb_av] Co mmon [facility] temperature 2022-03-30 10:20:00 97.1 [degF] Com [facility] bmi 2022-03-30 10:20:00 31.24 kg/m2 Comm on [facility] oximetry 2022-03-30 10:20:00 98 % Commo n [facility] respiratory rate 2022-03-30 10:20:00 18 /min Common [facility] blood pressure systolic 2022-03-30 10:20:00 130 mm[Hg] Common [facility] blood pressure diastolic 2022-03-30 10:20:00 75 mm[Hg] Common [facility] height 2021-11-19 09:00:00 66.50 [in_i] Com mon [facility] weight 2021-11-19 09:00:00 207.4 [lb_av] Co on [facility] temperature 2021-11-19 09:00:00 97.4 [degF] Com mon [facility] bmi 2021-11-19 09:00:00 32.97 kg/m2 Comm on [facility] oximetry 2021-11-19 09:00:00 98 % Commo n [facility] respiratory rate 2021-11-19 09:00:00 17 /min Common [facility] blood pressure systolic 2021-11-19 09:00:00 138 mm[Hg] Common [facility] blood pressure diastolic 2021-11-19 09:00:00 75 mm[Hg] Common [facility] blood pressure diastolic 2021-11-19 09:20:00 75 mm[Hg] Common [facility] height 2021-11-19 09:20:00 66.5 [in_i] Comm on [facility] weight 2021-11-19 09:20:00 207.4 [lb_av] Co mmon [facility] temperature 2021-11-19 09:20:00 97.4 [degF] Com [facility] bmi 2021-11-19 09:20:00 32.97 kg/m2 Comm on [facility] oximetry 2021-11-19 09:20:00 98 % Commo n [facility] blood pressure systolic 2021-11-19 09:20:00 138 mm[Hg] Common [facility] height 2021-08-06 08:00:00 66.50 [in_i] Com [facility] weight 2021-08-06 08:00:00 206 [lb_av] Comm on [facility] temperature 2021-08-06 08:00:00 97 [degF] Comm on [facility] bmi 2021-08-06 08:00:00 32.75 kg/m2 Comm on [facility] blood pressure systolic 2021-08-06 08:00:00 132 mm[Hg] Common [facility] blood pressure diastolic 2021-08-06 08:00:00 65 mm[Hg] [facility] height 2021-05-06 09:40:00 66.50 [in_i] Com [facility] weight 2021-05-06 09:40:00 206.8 [lb_av] Co mmon [facility] temperature 2021-05-06 09:40:00 96.8 [degF] Com [facility] bmi 2021-05-06 09:40:00 32.87 kg/m2 Comm on [facility] oximetry 2021-05-06 09:40:00 97 % Commo n [facility] respiratory rate 2021-05-06 09:40:00 17 /min Common [facility] blood pressure systolic 2021-05-06 09:40:00 137 mm[Hg] [facility] blood pressure diastolic 2021-05-06 09:40:00 63 mm[Hg] [facility] Systolic blood pressure 2019-11-12 02:00:00 143 mm[Hg] [facility] Diastolic blood pressure 2019-11-12 02:00:00 85 mm[Hg] [facility] Heart rate 2019-11-12 02:00:00 73 /min [facility] Respiratory rate 2019-11-12 02:00:00 12 /min [facility] Oxygen saturation in Arterial blood by Pulse oximetry 2019-11-12 02:00:00 97 /min [facility] Body temperature 2019-11-11 23:29:00 36.5 Marlyn [facility] Body weight 2019-11-11 23:29:00 86.183 kg [facility] Systolic blood pressure 2019-11-12 02:00:00 143 mm[Hg] [facility] Diastolic blood pressure 2019-11-12 02:00:00 85 mm[Hg] [facility] Heart rate 2019-11-12 02:00:00 73 /min [facility] Respiratory rate 2019-11-12 02:00:00 12 /min [facility] Oxygen saturation in Arterial blood by Pulse oximetry 2019-11-12 02:00:00 97 /min [facility] Body temperature 2019-11-11 23:29:00 36.5 Marlyn [facility] Body weight 2019-11-11 23:29:00 86.183 kg [facility] Body Temperature 2020-10-13 15:09:00 Wilfred Riddle Heart Rate 2020-10-13 15:09:00 Tamiko conti Garo Riddle Respiratory Rate 2020-10-13 15:09:00 Wilfred Garo Riddle BP Systolic 2020-10-13 15:09:00 Ray baez Garo Riddle BP Diastolic 2020-10-13 15:09:00 Zachery wallace Garo Riddle Weight Measured 2020-10-13 15:09:00 189.00 pounds Wilfred Riddle Height Measured 2020-10-13 15:09:00 68.00 inches Wilfred F Sanjeev BP Systolic 2018-10-04 16:11:00 121 mm[Hg] Step hen F Sanjeev BP Diastolic 2018-10-04 16:11:00 80 mm[Hg] Zachery phen F Sanjeev Weight Measured 2018-10-04 16:11:00 184.00 pounds Wilfred F Sanjeev Height Measured 2018-10-04 16:11:00 68.00 inches Wilfred F Sanjeev Body Temperature 2018-10-04 16:11:00 98.00 degrees Wilfred F Sanjeev Heart Rate 2018-10-04 16:11:00 74.00 /min Tamiko en F Sanjeev Respiratory Rate 2018-10-04 16:11:00 16.00 /min Wilfred F Sanjeev BP Systolic 2018-06-21 09:48:00 115 mm[Hg] Step hen F Sanjeev BP Diastolic 2018-06-21 09:48:00 71 mm[Hg] Zachery phen F Sanjeev Weight Measured 2018-06-21 09:48:00 185.60 pounds Wilfred F Sanjeev Height Measured 2018-06-21 09:48:00 68.00 inches Wilfred F Sanjeev Body Temperature 2018-06-21 09:48:00 98.50 degrees Wilfred F Sanjeev Heart Rate 2018-06-21 09:48:00 93.00 /min Tamiko en F Sanjeev Respiratory Rate 2018-06-21 09:48:00 16.00 /min Wilfred F Sanjeev BP Systolic 2018-05-02 09:49:00 111 mm[Hg] Step hen F Sanjeev BP Diastolic 2018-05-02 09:49:00 67 mm[Hg] Zachery phen F Sanjeev Weight Measured 2018-05-02 09:49:00 185.00 pounds Wilfred F Sanjeev Height Measured 2018-05-02 09:49:00 68.00 inches Wilfred F Sanjeev Body Temperature 2018-05-02 09:49:00 98.30 degrees Wilfred F Sanjeev Heart Rate 2018-05-02 09:49:00 80.00 /min Tamiko en F Sanjeev Respiratory Rate 2018-05-02 09:49:00 16.00 /min Wilfred F Sanjeev BP Systolic 2017-12-27 11:37:00 131 mm[Hg] Step hen F Sanjeev BP Diastolic 2017-12-27 11:37:00 75 mm[Hg] Zachery phen F Sanjeev Weight Measured 2017-12-27 11:37:00 Wilfred F Sanjeev Height Measured 2017-12-27 11:37:00 Wilfred F Sanjeev Body Temperature 2017-12-27 11:37:00 Wilfred F Sanjeev Heart Rate 2017-12-27 11:37:00 Tamiko en F Sanjeev Respiratory Rate 2017-12-27 11:37:00 Wilfred F Sanjeev BP Systolic 2017-12-27 10:58:00 152 mm[Hg] Step hen F Sanjeev BP Diastolic 2017-12-27 10:58:00 76 mm[Hg] Zachery phen F Sanjeev Weight Measured 2017-12-27 10:58:00 190.20 pounds Wilfred F Sanjeev Height Measured 2017-12-27 10:58:00 68.00 inches Wilfred F Sanjeev Body Temperature 2017-12-27 10:58:00 98.40 degrees Wilfred F Sanjeev Heart Rate 2017-12-27 10:58:00 77.00 /min Tamiko en F Sanjeev Respiratory Rate 2017-12-27 10:58:00 18.00 /min Wilfred F Sanjeev BP Systolic 2017-09-27 08:34:00 109 mm[Hg] Step hen F Sanjeev BP Diastolic 2017-09-27 08:34:00 64 mm[Hg] Zachery phen F Sanjeev Weight Measured 2017-09-27 08:34:00 191.00 pounds Wilfred F Sanjeev Height Measured 2017-09-27 08:34:00 68.00 inches Wilfred F Sanjeev Body Temperature 2017-09-27 08:34:00 98.40 degrees Wilfred F Sanjeev Heart Rate 2017-09-27 08:34:00 75.00 /min Tamiko en F Sanjeev Respiratory Rate 2017-09-27 08:34:00 18.00 /min Wilfred F Sanjeev BP Systolic 2016-12-20 08:55:00 133 mm[Hg] Step hen F Sanjeev BP Diastolic 2016-12-20 08:55:00 76 mm[Hg] Zachery phen F Sanjeev Weight Measured 2016-12-20 08:55:00 188.40 pounds Wilfred F Sanjeve Height Measured 2016-12-20 08:55:00 68.00 inches Wilfred F Sanjeev Body Temperature 2016-12-20 08:55:00 98.10 degrees Wilfred F Sanjeev Heart Rate 2016-12-20 08:55:00 78.00 /min Tamiko en F Sanjeev Respiratory Rate 2016-12-20 08:55:00 18.00 /min Wilfred Riddle BP Systolic 2016-06-14 09:23:00 147 mm[Hg] Step hen F Sanjeev BP Diastolic 2016-06-14 09:23:00 77 mm[Hg] Zachery phen F Sanjeev Weight Measured 2016-06-14 09:23:00 182.80 pounds Wilfred Riddle Height Measured 2016-06-14 09:23:00 68.00 inches Wilfred Riddle Body Temperature 2016-06-14 09:23:00 97.70 degrees Wilfred Riddle Heart Rate 2016-06-14 09:23:00 69.00 /min Tamiko en F Sanjeev Respiratory Rate 2016-06-14 09:23:00 18.00 /min Wilfred Riddle BP Systolic 2015-12-04 09:16:00 Step hen F Sanjeev BP Diastolic 2015-12-04 09:16:00 Zachery phen Garo Riddle Weight Measured 2015-12-04 09:16:00 Wilfred Riddle Height Measured 2015-12-04 09:16:00 Wilfred Riddle Body Temperature 2015-12-04 09:16:00 Wilfred Riddle Heart Rate 2015-12-04 09:16:00 Tamiko en F Sanjeev Respiratory Rate 2015-12-04 09:16:00 Wilfred Riddle Procedures Procedure Date / Time Performed Performing Clinician Source REFERRAL- REQUEST/RESPONSE 2022-11-08 06:01:00 Doctor Unassigned, Boring [facility] SARS-COV-2 COVID-19 VACCINE BOOSTER,0.25ML,IM (MODERNA) 2021-07-21 21:27:34 Doctor Unassigned, Boring [facility] CT HEAD WO CONTRAST 2019-11-12 01:26:21 Mj Joy [facility] XR CHEST 2 VW 2019-11-12 00:03:23 Mj Joy [facility] URINALYSIS 2019-11-11 23:51:00 Mj Joy [facility] LIPASE 2019-11-11 23:47:00 Mj Joy [facility] TROPONIN I 2019-11-11 23:47:00 Mj Joy [facility] COMP. METABOLIC PANEL (00542) 2019-11-11 23:47:00 Mj Joy [facility] CBC WITH DIFFERENTIAL 2019-11-11 23:47:00 Mj Joy [facility] PROTHROMBIN TIME / INR 2019-11-11 23:47:00 Jayna Joy [facility] ACTIVATED PARTIAL THRMPLAS SERGIO 2019-11-11 23:47:00 Mj Joy [facility] EKG-12 LEAD 2019-11-11 23:45:09 Mj Joy [facility] Encounters Start Date/Time End Date/Time Encounter Type Admission Type Attending [facility] Facility Care Department Encounter ID Source 2024-12-11 13:44:00 Outpatient Chairez, Michael STLMLC STLMLC [id number] [facility] 2024-06-12 15:19:00 Outpatient Chairez, Michael STLMLC STLMLC [id number] [facility] 2024-06-11 11:58:00 Outpatient Chairez, Michael STLMLC STLMLC [id number] [facility] 2024-05-07 11:19:00 Outpatient Chairez, Michael STLC STLMLC [id number] [facility] 2024-02-29 00:00:00 [id number] [facility] 2024-02-10 09:18:00 Outpatient Chairez, Michael STLMLC STLMLC [id number] [facility] 2024-01-09 13:53:00 Outpatient Chairez, Michael STLMLC STLMLC [id number] [facility] 2024-01-06 14:00:00 Outpatient Chairez, Michael STLMLC STLMLC [id number] [facility] 2023-10-26 08:41:00 Outpatient Chairez, Michael STLMLC STLMLC [id number] [facility] 2023-10-12 14:33:00 Outpatient Chairez, Michael STLMLC STLMLC [id number] [facility] 2023-08-02 11:16:00 Outpatient Chairez, Michael STLMLC STLMLC [id number] [facility] 2023-03-02 14:02:00 Outpatient Chairez, Michael STLMLC STLMLC [id number] [facility] 2022-12-29 09:06:00 Outpatient Chairez, Michael STLMLC STLMLC [id number] [facility] 2022-11-01 14:25:00 Outpatient Chairez, Michael STLMLC STLMLC [id number] [facility] 2021-10-21 13:36:45 Outpatient Chairez, Michael STLMLC STLMLC [id number] [facility] 2021-10-21 12:58:25 Outpatient Chairez, Michael STLMLC STLMLC [id number] [facility] 2021-10-21 12:31:05 Outpatient Chairez, Michael STLMLC STLMLC [id number] [facility] 2021-10-21 12:25:59 Outpatient Chairez, Michael STLMLC STLMLC [id number] [facility] 2021-10-21 12:24:25 Outpatient Chairez, Michael STLMLC STLMLC [id number] [facility] 2021-10-21 12:18:16 Outpatient Chairez, Michael STLMLC STLMLC [id number] [facility] 2021-10-21 12:17:20 Outpatient Chairez, Michael STLMLC STLMLC [id number] [facility] 2021-10-21 12:14:55 Outpatient Chairez, Michael STLMLC STLMLC [id number] [facility] 2021-10-21 12:14:43 Outpatient STLEXIILC STLMLC [id number] [facility] 2021-10-21 12:07:33 Outpatient STLMLC STLMLC [id number] [facility] 2021-10-21 11:28:[address] [place] STLEXIILC STLMLC [id number] [facility] 2021-10-21 11:10:[address] [place] STLMLC STLM [id number] [facility] 2021-10-21 11:05:[address] [place] [facility] [id number] [facility] 2021-10-21 11:05:[address] [place] STLMLC [facility] [id number] [facility] 2020-03-22 23:29:00 Inpatient Gonzalo Norris [facility] TELE [id number] [facility] 2024-12-03 00:00:00 2024-12-03 00:00:00 (TEL) [facility] [id number] [facility] 2024-11-12 15:55:24 2024-11-12 15:55:24 Outpatient SFA SFA [id number] Wilfred Garo Sanjeev 2024-11-12 00:00:00 2024-11-12 00:00:00 Outpatient Visit SFA SFA [id number] Wilfred F Sanjeev 2024-10-19 00:00:00 2024-10-19 00:00:00 OFFICE VISIT ESTAB PT LEVEL 4 [facility] [id number] [facility] 2024-10-19 00:00:00 2024-10-19 00:00:00 SUB ANNUAL [facility] WELL[facility] VISIT [facility] [id number] [facility] 2024-10-12 00:00:00 2024-10-12 00:00:00 (TEL) STLMLC STLMLC [id number] [facility] 2024-10-08 00:00:00 2024-10-08 00:00:00 (TEL) STLMLC STLMLC [id number] [facility] 2024-10-01 00:00:00 2024-10-01 00:00:00 (TEL) STLMLC STLMLC [id number] [facility] 2024-09-17 00:00:00 2024-09-17 00:00:00 (TEL) STLMLC STLMLC [id number] [facility] 2024-08-07 00:00:00 2024-08-07 00:00:00 (TEL) STLMLC STLMLC [id number] [facility] 2024-06-13 00:00:00 2024-06-13 00:00:00 (HOSP F/U) Hospital Follow Up STLMLC STLMLC [id number] [facility] 2024-06-11 00:00:00 2024-06-11 00:00:00 (TEL) STLMLC STLMLC [id number] [facility] 2024-06-11 00:00:00 2024-06-11 00:00:00 (TEL) STLMLC STLMLC [id number] [facility] 2024-05-29 00:00:00 2024-05-29 00:00:00 (TEL) STLMLC STLMLC [id number] [facility] 2024-05-18 08:30:00 2024-05-18 09:00:00 D2Me Check-in Rick Witt [id number] [address] [place] [address] 2024-05-14 00:00:00 2024-05-14 00:00:00 OFFICE VISIT ESTAB PT LEVEL 4 STLMLC STLMLC [id number] [facility] 2024-02-27 18:21:00 2024-02-28 12:00:00 Inpatient Alok Munoz [facility] [id number] [facility] 2024-02-14 00:00:00 2024-02-14 00:00:00 (TEL) STLMLC STLMLC [id number] [facility] 2024-02-10 00:00:00 2024-02-10 00:00:00 OFFICE VISIT ESTAB PT LEVEL 3 STLMLC STLMLC [id number] [facility] 2024-02-09 00:00:00 2024-02-09 00:00:00 (TEL) STLMLC STLMLC [id number] [facility] 2024-01-11 00:00:00 2024-01-11 00:00:00 OFFICE VISIT ESTAB PT LEVEL 4 STLMLC STLMLC [id number] [facility] 2023-10-31 00:00:00 2023-10-31 00:00:00 (TEL) STLMLC STLMLC [id number] [facility] 2023-10-27 22:00:00 2023-10-27 23:00:00 Annual D2Me Isabel Alford [id number] [facility] 2023-10-25 00:00:00 2023-10-25 00:00:00 (F/U) Follow Up Visit STLMLC STLMLC [id number] [facility] 2023-10-21 00:00:00 2023-10-21 00:00:00 (TEL) STLMLC STLMLC [id number] [facility] 2023-10-13 00:00:00 2023-10-13 00:00:00 OFFICE VISIT ESTAB PT LEVEL 4 STLMLC STLMLC [id number] [facility] 2023-10-13 00:00:00 2023-10-13 00:00:00 SUB ANNUAL [facility] WELLNESS VISIT STLMLC STLMLC [id number] [facility] 2023-08-30 00:00:00 2023-08-30 00:00:00 (F/U) Follow Up Visit STLMLC STLMLC [id number] [facility] 2023-08-09 00:00:00 2023-08-09 00:00:00 (TEL) STLMLC STLMLC [id number] [facility] 2023-08-09 00:00:00 2023-08-09 00:00:00 OFFICE VISIT NEW PT LEVEL 4 STLMLC STLMLC [id number] [facility] 2023-08-01 00:00:00 2023-08-01 00:00:00 (TEL) STLMLC STLMLC [id number] [facility] 2023-06-08 00:00:00 2023-06-08 00:00:00 OFFICE VISIT ESTAB PT LEVEL 4 STLMLC STLMLC [id number] [facility] 2023-05-06 00:00:00 2023-05-06 00:00:00 (TEL) STLMLC STLMLC [id number] [facility] 2023-04-14 00:00:00 2023-04-14 00:00:00 (TEL) STLMLC STLMLC [id number] [facility] 2023-04-01 00:00:00 2023-04-01 00:00:00 (TEL) STLMLC STLMLC [id number] [facility] 2023-03-09 00:00:00 2023-03-09 00:00:00 (TEL) STLMLC STLMLC [id number] [facility] 2023-03-04 00:00:00 2023-03-04 00:00:00 OFFICE VISIT ESTAB PT LEVEL 4 STLMLC STLMLC [id number] [facility] 2023-03-04 00:00:00 2023-03-04 00:00:00 (WEB) STLMLC STLMLC [id number] [facility] 2023-03-03 21:00:00 2023-03-03 22:00:00 ANSELMO Mosqueda [id number]. [id number] [facility] 2022-12-29 00:00:00 2022-12-29 00:00:00 (TEL) STLMLC STLMLC [id number] [facility] 2022-12-28 00:00:00 2022-12-28 00:00:00 [place] Tum[id number] [facility] 2022-12-28 00:00:00 2022-12-28 00:00:00 Outpatient Tumelson_A DMG [id number] [facility] 2022-12-22 00:00:00 2022-12-22 00:00:00 (TEL) STLMLC STLMLC [id number] [facility] 2022-11-26 00:00:00 2022-11-26 00:00:00 Outpatient DMG DMG [id number] [facility] 2022-11-08 00:00:00 2022-11-08 00:00:00 Outpatient DMG DMG [id number] [facility] 2022-11-08 00:00:00 2022-11-08 00:00:00 Orders Only Doctor Unassigned, [facility] [id number] [facility] 2022-11-05 00:00:00 2022-11-05 00:00:00 (TEL) STLMLC STLMLC [id number] [facility] 2022-11-04 00:00:00 2022-11-04 00:00:00 OFFICE VISIT ESTAB PT LEVEL 4 STLMLC STLMLC [id number] [facility] 2022-11-04 00:00:00 2022-11-04 00:00:00 SUB ANNUAL MCR WELLNESS VISIT STLMLC STLMLC [id number] [facility] 2022-06-30 00:00:00 2022-06-30 00:00:00 OFFICE VISIT ESTAB PT LEVEL 4 STLMLC STLMLC [id number] [facility] 2022-03-30 00:00:00 2022-03-30 00:00:00 OFFICE VISIT ESTAB PT LEVEL 4 STLMLC STLMLC [id number] [facility] 2022-03-15 00:00:00 2022-03-15 00:00:00 (TEL) STLMLC STLMLC [id number] [facility] 2021-12-25 00:00:00 2021-12-25 00:00:00 (TEL) STLMLC STLMLC [id number] [facility] 2021-11-19 00:00:00 2021-11-19 00:00:00 OFFICE VISIT ESTAB PT LEVEL 4 STLMLC STLMLC [id number] [facility] 2021-11-19 00:00:00 2021-11-19 00:00:00 SUB ANNUAL MCR WELLNESS VISIT STLMLC STLMLC [id number] [facility] 2021-08-06 00:00:00 2021-08-06 00:00:00 OFFICE VISIT ESTAB PT LEVEL 4 STLMLC STLMLC [id number] [facility] 2021-07-21 16:26:35 2021-07-21 16:26:59 Imm/Inj Visit Nurse, Magnus Vasquez Immunizatio Maxwell Orozco [facility] [id number] [facility] 2021-06-23 00:00:00 2021-06-23 00:00:00 (TEL) STLMLC STLMLC [id number] [facility] 2021-05-06 00:00:00 2021-05-06 00:00:00 OFFICE VISIT ESTAB PT LEVEL 4 STLMLC STLMLC [id number] [facility] 2021-02-11 00:00:00 2021-02-11 00:00:00 Outpatient STLMLC STLMLC [id number] [facility] 2021-02-03 00:00:00 2021-02-03 00:00:00 Outpatient [facility]C STL[facility]C [id number] [facility] 2021-02-03 00:00:00 2021-02-03 00:00:00 Outpatient [facility]C ST[facility]C [id number] [facility] 2020-11-10 00:00:00 2020-11-10 00:00:00 Outpatient [facility]LMLC STLMLC [id number] [facility] 2020-10-25 00:00:00 2020-10-25 00:00:00 Outpatient STLMLC STL[facility]C [id number] [facility] 2020-10-03 00:00:00 2020-10-03 00:00:00 Outpatient [facility]LMLC STLMLC [id number] [facility] 2020-09-29 00:00:00 2020-09-29 00:00:00 Outpatient STLMLC STLMLC [id number] [facility] 2020-09-16 00:00:00 2020-09-16 00:00:00 Outpatient STL[facility]C STL[facility]C [id number] [facility] 2020-09-13 00:00:00 2020-09-13 00:00:00 Outpatient STL[facility]C STLMLC [id number] [facility] 2020-08-18 00:00:00 2020-08-18 00:00:00 Outpatient STLMLC STLMLC [id number] [facility] 2020-07-23 00:00:00 2020-07-23 00:00:00 Outpatient [facility]C ST[facility]C [id number] [facility] 2020-07-21 00:00:00 2020-07-21 00:00:00 Outpatient [facility]LMLC ST[facility]MLC [id number] [facility] 2020-06-20 00:00:00 2020-06-20 00:00:00 Outpatient STLMLC STLMLC [id number] [facility] 2020-05-24 10:33:00 2020-05-24 10:33:00 [facility] [facility] [id number] [facility] 2020-05-23 11:59:00 2020-05-23 11:59:00 Outpatient [facility] [id number] [facility] 2020-05-01 13:12:00 2020-05-01 13:12:00 Outpatient [facility] [id number] [facility] 2020-04-30 16:24:00 2020-04-30 16:24:00 Outpatient [facility] Medicine [id number] [facility] 2020-04-29 09:29:00 2020-04-29 09:29:00 Outpatient [facility] Medical [facility] [id number] [facility] 2020-03-27 09:36:00 2020-03-27 09:36:00 [facility] [id number] [facility] 2020-03-26 15:00:00 2020-03-26 15:00:00 [facility] [id number] [facility] 2020-03-24 16:17:00 2020-03-24 16:17:00 [facility] [id number] [facility] 2020-03-21 18:15:00 2020-03-21 18:15:[address] [facility] [address] [facility] [place] [facility] [id number] [facility] 2020-03-20 14:00:00 2020-03-20 14:00:00 [place] [place] [facility] [id number] [facility] 2020-02-14 08:52:00 2020-02-14 08:52:00 [facility] [address] [facility] [place] [facility] [id number] [facility] 2020-01-31 09:48:00 2020-01-31 09:48:00 [facility] [address] [facility] [place] [facility] [id number] [facility] 2019-11-21 13:30:00 2019-11-21 13:30:00 [facility] [address] [facility] [id number] [facility] 2019-11-11 17:32:14 2019-11-11 20:37:00 Emergency [facility] [id number] 2019-11-11 17:32:14 2019-11-11 20:37:00 Emergency [facility] [id number] [facility] 2019-11-11 17:32:14 2019-11-11 20:37:00 Emergency X [facility] [id number] [facility] 2019-11-04 16:00:00 2019-11-04 16:00:00 [facility] [address] [facility] [place] [facility] [id number] [facility] 2019-10-31 16:00:00 2019-10-31 16:00:00 [facility] [place] [facility] [id number] [facility] 2019-08-12 17:22:00 2019-08-12 17:22:00 [facility] [place] [facility] [id number] [facility] 2019-07-31 16:00:00 2019-07-31 16:00:00 [facility] [place] [facility] [id number] [facility] 2019-06-05 16:30:00 2019-06-05 16:30:00 [facility] [place] [facility] [id number] [facility] 2019-06-04 11:00:00 2019-06-04 11:00:00 [facility] [place] [facility] [id number] [facility] 2019-05-18 09:40:00 2019-05-18 09:40:00 [facility] [place] [facility] [id number] [facility] 2019-05-08 09:22:00 2019-05-08 09:22:00 [facility] [address] [facility] [place] [facility] [id number] [facility] 2019-05-02 08:20:00 2019-05-02 08:20:00 [facility] [place] [facility] [id number] [facility] 2019-04-09 23:33:00 2019-04-09 23:33:00 [facility] [place] [facility] [id number] [facility] 2019-04-09 15:07:00 2019-04-09 15:07:00 [facility] [address] [facility] [place] [facility] [id number] [facility] 2019-03-07 11:20:00 2019-03-07 11:20:00 [facility] [address] [facility] [place] [facility] [id number] [facility] Results Test Description Test Time Test Comments Results Result Co mments Source CBC W/AUTO [id number] 00:00:00* Test Item Value Reference Range Interpretation Comme nts NUCLEATED RBCS (test code = 36071-8) 0.0 /100 WBC'S See_Comment [Automated messa ge] The system which generated this result transmitted reference range: 0.0 /100 WBC'S. The reference range was not used to interpret this result as normal/abnormal. ABSOLUTE EOSINOPHILS (test code = 96762-1) 0.12 K/UL See_Comment [Automated messa ge] The system which generated this result transmitted reference range: 0.00-0.50 K/UL. The reference range was not used to interpret this result as normal/abnormal. ABSOLUTE LYMPHOCYTES (test code = 78713-9) 1.21 K/UL See_Comment [Automated messa ge] The system which generated this result transmitted reference range: 1.00-4.00 K/UL. The reference range was not used to interpret this result as normal/abnormal. ABSOLUTE MONOCYTES (test code = 61134-1) 0.53 K/UL See_Comment [Automated messa ge] The system which generated this result transmitted reference range: 0.20-1.00 K/UL. The reference range was not used to interpret this result as normal/abnormal. ABSOLUTE NEUTROPHILS (test code = 18155-7) 2.85 K/UL See_Comment [Automated messa ge] The system which generated this result transmitted reference range: 1.50-7.50 K/UL. The reference range was not used to interpret this result as normal/abnormal. BASOPHILS (test code = 23817-9) 0.8 % EOSINOPHILS (test code = 33716-1) 2.5 % HEMATOCRIT (test code = 00841-1) 38.2 % See_Comment [Automated messa ge] The system which generated this result transmitted reference range: 34.0-45.0 %. The reference range was not used to interpret this result as normal/abnormal. HEMOGLOBIN (test code = 718-7) 12.4 G/DL See_Comment [Automated messa ge] The system which generated this result transmitted reference range: 11.5-15.5 G/DL. The reference range was not used to interpret this result as normal/abnormal. LYMPHOCYTES (test code = 12989-0) 25.4 % MCH (test code = 27558-3) 31.2 PG See_Comment [Automated messa ge] The system which generated this result transmitted reference range: 25.0-33.0 PG. The reference range was not used to interpret this result as normal/abnormal. MCHC (test code = 41630-0) 32.5 G/DL See_Comment [Automated messa ge] The system which generated this result transmitted reference range: 31.0-36.0 G/DL. The reference range was not used to interpret this result as normal/abnormal. MCV (test code = 41444-6) 96.2 fL See_Comment [Automated messa ge] The system which generated this result transmitted reference range: 80.0-99.0 fL. The reference range was not used to interpret this result as normal/abnormal. MONOCYTES (test code = 23252-2) 11.1 % NEUTROPHILS (test code = 04704-6) 60.0 % PLATELET COUNT (test code = 35695-9) 229 K/UL See_Comment [Automated messa ge] The system which generated this result transmitted reference range: 130-400 K/UL. The reference range was not used to interpret this result as normal/abnormal. RBC (test code = 20459-0) 3.97 M/UL See_Comment [Automated messa ge] The system which generated this result transmitted reference range: 3.80-5.40 M/UL. The reference range was not used to interpret this result as normal/abnormal. RDW (test code = 51076-9) 13.1 % See_Comment [Automated messa ge] The system which generated this result transmitted reference range: 11.5-15.0 %. The reference range was not used to interpret this result as normal/abnormal. WBC (test code = 50015-8) 4.8 K/UL See_Comment [Automated messa ge] The system which generated this result transmitted reference range: 3.5-11.0 K/UL. The reference range was not used to interpret this result as normal/abnormal. [id number] 17:41:00* Test Item Value Reference Range Interpretation Comme nts ACT-ISTAT (test code = ACTI) 336 SEC 74-137 H [id number] 17:07:00* Test Item Value Reference Range Interpretation Comme [facility] ACT-ISTAT (test code = ACTI) 330 SEC 74-137 H [id number] 16:42:00* Test Item Value Reference Range Interpretation Comme nts ACT-ISTAT (test code = ACTI) 342 SEC 74-137 H [id number] 16:02:00* Test Item Value Reference Range Interpretation Comme nts ACT-ISTAT (test code = ACTI) 336 SEC 74-137 H PROTHROMBIN [id number] 15:56:00* Test Item Value Reference Range Interpretation Comme [facility] PROTHROMBIN TIME PATIENT (test code = PTP) 12.3 SECONDS 9.4-12.5 N INTERNATIONAL NORMAL RATIO (test code = INR) 1.1 0.86-1.14 N The INR is to be used only for monitoring oral anticoagulanttherap y. INDICATION INR VALUE -------1. Prophylaxis, deep venous thrombosis, including high risk surgery. 2.0 - 3.0 2. Prophylaxis, deep venous thrombosis, hip surgery, treatment for deep venous thrombosis or pulmonary prevention of systemic embolism in patients with valvular heart disease, atrial fibrillation, tissue heart valve, or acute myocardial infarction. 2.0 - 3.0 3. Mechanical prosthesis heart valves, recurrent systemic embolism. 3.0 - 4.5 PTT [id number] 10:06:00* Test Item Value Reference Range Interpretation [facility] PTT ACTIVATED (test code = APTT) 28.5 SECONDS 25.1-36.5 N BASIC METABOLIC [id number] 10:03:00* Test Item Value Reference Range Interpretation Comme [facility] SODIUM (test code = NA) 138 MMOL/L 137-145 N POTASSIUM (test code = K) 3.8 MMOL/L 3.5-5.1 N CHLORIDE (test code = CL) 104 MMOL/L 98-107 N CARBON DIOXIDE (test code = CO2) 30 MMOL/L 22-30 N GLUCOSE (test code = GLU) 117 MG/DL 74-106 H BLOOD UREA NITROGEN (test code = BUN) 20 MG/DL 7-17 H GLOMERULAR FILTRATION RATE (test code = GFR) > 60 The Glomerular Filtration Rate is a calculated parameterbased on serum Creatinine, patient age and sex. GFR valuesless than 60 mL/min/1.73 square meters are indicative ofChronic Kidney Disease. Values less than 15 mL/min/1.73square meters indicate Kidney failure. The calculation forGFR is based on the CKD-EPI (202) calculation. This formulais race indifferent and is the recommended formula for GFRby the National Kidney Foundation for Adults.The GFR will not calculate if the sex is unknown or if thepatient's age is <18 years. CREATININE (test code = CREAT) 0.80 MG/DL 0.52-1.04 N CALCIUM (test code = CA) 9.6 MG/DL 8.4-10.2 N [id number] 10:03:00* Test Item Value Reference Range Interpretation Comme nts MAGNESIUM (test code = MAG) 2.2 MG/DL 1.6-2.3 N CBC W/AUTO [id number] 09:52:00* Test Item Value Reference Range Interpretation Comme nts WHITE BLOOD CELL (test code = WBC) 4.1 K/MM3 3.8-9.8 N RED BLOOD CELL (test code = RBC) 4.24 M/MM3 3.58-4.97 N HEMOGLOBIN (test code = HGB) 13.0 G/DL 11.2-14.9 N HEMATOCRIT (test code = HCT) 40.8 % 33.2-43.5 N MEAN CELL VOLUME (test code = MCV) 96 fL 80.7-99.1 N MEAN CELL HGB (test code = MCH) 30.7 pg 27.0-34.1 N MEAN CELL HGB CONCETRATION (test code = MCHC) 31.9 % 32.2-35.7 L RED CELL DISTRIBUTION WIDTH (test code = RDW) 13.2 % 12.1-15.2 N PLATELET COUNT (test code = PLT) 199 K/MM3 129-368 N MEAN PLATELET VOLUME (test c ode = MPV) 9.3 fl 7.4-10.4 N NEUTROPHIL % (test code = NT%) 58.9 % 43-75 N IMMATURE GRANULOCYTE % (test code = IG%) 0.2 % 0.0-2.0 N LYMPHOCYTE % (test code = LY%) 26.3 % 14-44 N MONOCYTE % (test code = MO%) 11.4 % 4-13 N EOSINOPHIL % (test code = EO%) 2.2 % 0-6 N BASOPHIL % (test code = BA%) 1.0 % 0-2 N NUCLEATED RBC % (test code = NRBC%) 0.0 % 0-1.0 N NEUTROPHIL # (test code = NT#) 2.44 K/mm3 2.0-7.6 N IMMATURE GRANULOCYTE # (test code = IG#) 0.01 x10 3/uL 0-0.03 N LYMPHOCYTE # (test code = LY#) 1.09 K/mm3 1.0-3.8 N MONOCYTE # (test code = MO#) 0.47 K/mm3 0.1-0.8 N EOSINOPHIL # (test code = EO#) 0.09 K/mm3 0.0-0.2 N BASOPHIL # (test code = BA#) 0.04 K/mm3 0.0-0.2 N NUCLEATED RBC # (test code = NRBC#) 0.00 K/mm3 0.0-0.1 N CBC W/AUTO [id number] 00:00:00* Test Item Value Reference Range Interpretation Comme nts NUCLEATED RBCS (test code = 96734-7) 0.0 /100 WBC'S See_Comment [Automated messa ge] The system which generated this result transmitted reference range: 0.0 /100 WBC'S. The reference range was not used to interpret this result as normal/abnormal. ABSOLUTE EOSINOPHILS (test code = 31080-4) 0.13 K/UL See_Comment [Automated messa ge] The system which generated this result transmitted reference range: 0.00-0.50 K/UL. The reference range was not used to interpret this result as normal/abnormal. ABSOLUTE LYMPHOCYTES (test code = 48521-2) 1.21 K/UL See_Comment [Automated [employer]PSoftwarea ge] The system which generated this result transmitted reference range: 1.00-4.00 K/UL. The reference range was not used to interpret this result as normal/abnormal. ABSOLUTE MONOCYTES (test code = 91797-0) 0.52 K/UL See_Comment [Automated messa ge] The system which generated this result transmitted reference range: 0.20-1.00 K/UL. The reference range was not used to interpret this result as normal/abnormal. ABSOLUTE NEUTROPHILS (test code = 42729-6) 2.63 K/UL See_Comment [Automated messa ge] The system which generated this result transmitted reference range: 1.50-7.50 K/UL. The reference range was not used to interpret this result as normal/abnormal. BASOPHILS (test code = 17841-7) 0.7 % EOSINOPHILS (test code = 22897-9) 2.9 % HEMATOCRIT (test code = 97822-8) 39.2 % See_Comment [Automated messa ge] The system which generated this result transmitted reference range: 34.0-45.0 %. The reference range was not used to interpret this result as normal/abnormal. HEMOGLOBIN (test code = 718-7) 13.3 G/DL See_Comment [Automated messa ge] The system which generated this result transmitted reference range: 11.5-15.5 G/DL. The reference range was not used to interpret this result as normal/abnormal. LYMPHOCYTES (test code = 97161-3) 26.7 % MCH (test code = 34524-8) 32.4 PG See_Comment [Automated messa ge] The system which generated this result transmitted reference range: 25.0-33.0 PG. The reference range was not used to interpret this result as normal/abnormal. MCHC (test code = 02219-6) 33.9 G/DL See_Comment [Automated messa ge] The system which generated this result transmitted reference range: 31.0-36.0 G/DL. The reference range was not used to interpret this result as normal/abnormal. MCV (test code = 80897-7) 95.4 fL See_Comment [Automated messa ge] The system which generated this result transmitted reference range: 80.0-99.0 fL. The reference range was not used to interpret this result as normal/abnormal. MONOCYTES (test code = 55228-5) 11.5 % NEUTROPHILS (test code = 62103-2) 58.0 % PLATELET COUNT (test code = 29082-1) 213 K/UL See_Comment [Automated messa ge] The system which generated this result transmitted reference range: 130-400 K/UL. The reference range was not used to interpret this result as normal/abnormal. RBC (test code = 83535-3) 4.11 M/UL See_Comment [Automated [employer]] The system which generated this result transmitted reference range: 3.80-5.40 M/UL. The reference range was not used to interpret this result as normal/abnormal. RDW (test code = 82263-7) 12.4 % See_Comment [Automated [employer]] The system which generated this result transmitted reference range: 11.5-15.0 %. The reference range was not used to interpret this result as normal/abnormal. WBC (test code = 85061-2) 4.5 K/UL See_Comment [Automated [employer]] The system which generated this result transmitted reference range: 3.5-11.0 K/UL. The reference range was not used to interpret this result as normal/abnormal. BASIC METABOLIC [id number] 04:23:00* Test Item Value Reference Range Interpretation Comme nts SODIUM (test code = NA) 139 mEq/L 134-147 N POTASSIUM (test code = K) 3.8 mEq/L 3.4-5.0 N CHLORIDE (test code = CL) 106 mEq/L 100-108 N CARBON DIOXIDE (test code = CO2) 28 mEq/L 21-33 N ANION GAP (test code = GAP) 9 0-20 N GLUCOSE (test code = GLU) 111 mg/dL 70-110 H BLOOD UREA NITROGEN (test code = BUN) 18 mg/dL 7-18 GLOMERULAR FILTRATION RATE (test code = GFR) 62.6 80-90 L Units of measure = ml/min/1.73 m2 CREATININE (test code = CREAT) 0.9 mg/dL 0.6-1.3 CALCIUM (test code = CA) 8.2 mg/dL 8.0-10.5 N [id number] 04:23:00* Test Item Value Reference Range Interpretation Comme nts MAGNESIUM (test code = MAG) 2.50 mg/dL 1.8-2.4 H CBC W/AUTO [id number] 04:05:00* Test Item Value Reference Range Interpretation Comme nts WHITE BLOOD CELL (test code = WBC) 4.14 x10 3/uL 4.5-11.0 L RED BLOOD CELL (test code = RBC) 3.99 x10 6/uL 3.54-5.02 N HEMOGLOBIN (test code = HGB) 12.5 g/dL 11.0-15.0 N HEMATOCRIT (test code = HCT) 38.8 % 33.0-45.0 N MEAN CELL VOLUME (test code = MCV) 97.2 fL 81.0-99.0 N MEAN CELL HGB (test code = MCH) 31.3 pg 27.0-33.0 N MEAN CELL HGB CONCETRATION (test code = MCHC) 32.2 g/dL 33.0-37.0 L RED CELL DISTRIBUTION WIDTH CV (test code = RDW) 12.9 % 11.5-14.5 N RED CELL DISTRIBUTION WIDTH SD (test code = RDW-SD) 46.6 fL 37.0-54.0 N PLATELET COUNT (test code = PLT) 197 x10 3/uL 150-400 N MEAN PLATELET VOLUME (test c ode = MPV) 9.1 fL 7.0-9.0 H NEUTROPHIL % (test code = NT%) 52.0 % 56.0-77.0 L IMMATURE GRANULOCYTE % (test code = IG%) 0.2 % 0.0-2.0 N LYMPHOCYTE % (test code = LY%) 30.2 % 14.0-32.0 N MONOCYTE % (test code = MO%) 11.4 % 4.8-9.0 H EOSINOPHIL % (test code = EO%) 4.8 % 0.3-3.7 H BASOPHIL % (test code = BA%) 1.4 % 0.0-2.0 N NUCLEATED RBC % (test code = NRBC%) 0.0 % 0-0 N NEUTROPHIL # (test code = NT#) 2.15 x10 3/uL 2.0-7.6 N IMMATURE GRANULOCYTE # (test code = IG#) 0.01 x10 3/uL 0.00-0.03 N LYMPHOCYTE # (test code = LY#) 1.25 x10 3/uL 1.0-3.8 N MONOCYTE # (test code = MO#) 0.47 x10 3/uL 0.1-0.8 N EOSINOPHIL # (test code = EO#) 0.20 x10 3/uL 0.0-0.2 N BASOPHIL # (test code = BA#) 0.06 x10 3/uL 0.0-0.2 N NUCLEATED RBC # (test code = NRBC#) 0.00 x10 3/uL 0.0-0.1 N MANUAL DIFF REQUIRED (test c ode = MDIFF) NO BASIC METABOLIC [id number] 09:26:00* Test Item Value Reference Range Interpretation Comme nts SODIUM (test code = NA) 140 mEq/L 134-147 N POTASSIUM (test code = K) 3.7 mEq/L 3.4-5.0 N CHLORIDE (test code = CL) 106 mEq/L 100-108 N CARBON DIOXIDE (test code = CO2) 28 mEq/L 21-33 N ANION GAP (test code = GAP) 10 0-20 N GLUCOSE (test code = GLU) 103 mg/dL 70-110 N BLOOD UREA NITROGEN (test code = BUN) 9 mg/dL 7-18 GLOMERULAR FILTRATION RATE (test code = GFR) 83.7 80-90 N Units of measure = ml/min/1.73 m2 CREATININE (test code = CREAT) 0.7 mg/dL 0.6-1.3 N CALCIUM (test code = CA) 8.3 mg/dL 8.0-10.5 N [id number] 09:26:00* Test Item Value Reference Range Interpretation Comme nts MAGNESIUM (test code = MAG) 2.50 mg/dL 1.8-2.4 H BASIC METABOLIC [id number] 09:24:00* Test Item Value Reference Range Interpretation Comme nts SODIUM (test code = NA) 140 mEq/L 134-147 N POTASSIUM (test code = K) 3.7 mEq/L 3.4-5.0 N CHLORIDE (test code = CL) 106 mEq/L 100-108 N CARBON DIOXIDE (test code = CO2) 28 mEq/L 21-33 N ANION GAP (test code = GAP) 10 0-20 N GLUCOSE (test code = GLU) 103 mg/dL 70-110 N BLOOD UREA NITROGEN (test co de = BUN) 9 mg/dL 7-18 GLOMERULAR FILTRATION RATE ( test code = GFR) 80-90 CREATININE (test code = CREAT) mg/dL 0.6-1.3 CALCIUM (test code = CA) 8.3 mg/dL 8.0-10.5 N [id number] 09:24:00* Test Item Value Reference Range Interpretation Comme nts MAGNESIUM (test code = MAG) 2.50 mg/dL 1.8-2.4 H CBC W/AUTO [id number] 09:24:00* Test Item Value Reference Range Interpretation Comme nts WHITE BLOOD CELL (test code = WBC) 3.64 x10 3/uL 4.5-11.0 L RED BLOOD CELL (test code = RBC) 4.00 x10 6/uL 3.54-5.02 N HEMOGLOBIN (test code = HGB) 12.7 g/dL 11.0-15.0 N HEMATOCRIT (test code = HCT) 39.0 % 33.0-45.0 N MEAN CELL VOLUME (test code = MCV) 97.5 fL 81.0-99.0 N MEAN CELL HGB (test code = MCH) 31.8 pg 27.0-33.0 N MEAN CELL HGB CONCETRATION (test code = MCHC) 32.6 g/dL 33.0-37.0 L RED CELL DISTRIBUTION WIDTH CV (test code = RDW) 13.2 % 11.5-14.5 N RED CELL DISTRIBUTION WIDTH SD (test code = RDW-SD) 47.7 fL 37.0-54.0 N PLATELET COUNT (test code = PLT) 206 x10 3/uL 150-400 N MEAN PLATELET VOLUME (test c ode = MPV) 8.8 fL 7.0-9.0 N NEUTROPHIL % (test code = NT%) 58.9 % 56.0-77.0 N IMMATURE GRANULOCYTE % (test code = IG%) 0.0 % 0.0-2.0 N LYMPHOCYTE % (test code = LY%) 23.9 % 14.0-32.0 N MONOCYTE % (test code = MO%) 11.8 % 4.8-9.0 H EOSINOPHIL % (test code = EO%) 3.8 % 0.3-3.7 H BASOPHIL % (test code = BA%) 1.6 % 0.0-2.0 N NUCLEATED RBC % (test code = NRBC%) 0.0 % 0-0 N NEUTROPHIL # (test code = NT#) 2.14 x10 3/uL 2.0-7.6 N IMMATURE GRANULOCYTE # (test code = IG#) 0.00 x10 3/uL 0.00-0.03 N LYMPHOCYTE # (test code = LY#) 0.87 x10 3/uL 1.0-3.8 L MONOCYTE # (test code = MO#) 0.43 x10 3/uL 0.1-0.8 N EOSINOPHIL # (test code = EO#) 0.14 x10 3/uL 0.0-0.2 N BASOPHIL # (test code = BA#) 0.06 x10 3/uL 0.0-0.2 N NUCLEATED RBC # (test code = NRBC#) 0.00 x10 3/uL 0.0-0.1 N MANUAL DIFF REQUIRED (test c ode = MDIFF) NO COMPREHENSIVE METABOLIC [id number] 07:51:00* Test Item Value Reference Range Interpretation Comme nts SODIUM (test code = NA) 140 mEq/L 134-147 N POTASSIUM (test code = K) 3.8 mEq/L 3.4-5.0 N SPECIMEN 1+ HEMOLYZED.Results known to be adversely affected by hemolysis are: Potassium Magnesium LDH Phosphorus CHLORIDE (test code = CL) 105 mEq/L 100-108 N CARBON DIOXIDE (test code = CO2) 30 mEq/L 21-33 N ANION GAP (test code = GAP) 9 0-20 N GLUCOSE (test code = GLU) 96 mg/dL 70-110 N BLOOD UREA NITROGEN (test code = BUN) 13 mg/dL 7-18 N GLOMERULAR FILTRATION RATE (test code = GFR) 100.0 80-90 H Units of measure = ml/min/1.73 m2 CREATININE (test code = CREAT) 0.6 mg/dL 0.6-1.3 N TOTAL PROTEIN (test code = PROT) 5.8 g/dL 6.4-8.2 L ALBUMIN (test code = ALB) 2.80 g/dL 3.4-5.0 L CALCIUM (test code = CA) 8.1 mg/dL 8.0-10.5 N BILIRUBIN TOTAL (test code = BILT) 0.2 MG/DL <1.5 N SGOT/AST (test code = AST) 48 IUnit/L 15-37 H SGPT/ALT (test code = ALT) 40 IUnit/L 15-65 N ALKALINE PHOSPHATASE TOTAL (test code = ALKP) 57 IUnit/L 20-125 N LIPID PROFILE (CORONARY RISK)2020-03-23 07:51:00* Test Item Value Reference Range Interpretation Comme nts TRIGLYCERIDES (test code = TRIG) 255 mg/dL 40-150 H CHOLESTEROL (test code = CHOL) 171 mg/dL <200 CHOLESTEROL/HDL RATIO (test code = CHOLHDL) 3.17 RATIO 3.27-4.44 L RISK ASSOCIATED WITH CHOL/HDL RATIOS: RISK MALE FEMALE1/2 AVERAGE 3.43 3.27AVERAGE 4.97 4.442X AVERAGE 9.55 7.053X AVERAGE 23.39 11.04 NOTE THAT THE REFERENCE VALUE IS RELATEDTO RISK LEVELS RECOMMENDED BY THE NATL.HEART, LUNG, AND BLOOD INST. HDL CHOLESTEROL (test code = HDL) 54.0 mg/dL 39-96 N LIPOPROTEIN LDL (test code = LDL) 78 mg/dL 0-100 N <100 [id number] 0-129 NEAR OPTIMAL/ABOVE [id number] HIGH>EC=429 VERY HIGH*Guidelines provided by the National Cholesterol EducationProgram Adult Treatment Panel III [id number] 07:51:00* Test Item Value Reference Range Interpretation Comme nts MAGNESIUM (test code = MAG) 2.40 mg/dL 1.8-2.4 N CBC W/AUTO [id number] 07:23:00* Test Item Value Reference Range Interpretation Comme nts WHITE BLOOD CELL (test code = WBC) 3.90 x10 3/uL 4.5-11.0 L RED BLOOD CELL (test code = RBC) 3.73 x10 6/uL 3.54-5.02 N HEMOGLOBIN (test code = HGB) 11.8 g/dL 11.0-15.0 N HEMATOCRIT (test code = HCT) 36.7 % 33.0-45.0 N MEAN CELL VOLUME (test code = MCV) 98.4 fL 81.0-99.0 N MEAN CELL HGB (test code = MCH) 31.6 pg 27.0-33.0 N MEAN CELL HGB CONCETRATION (test code = MCHC) 32.2 g/dL 33.0-37.0 L RED CELL DISTRIBUTION WIDTH CV (test code = RDW) 13.0 % 11.5-14.5 N RED CELL DISTRIBUTION WIDTH SD (test code = RDW-SD) 47.1 fL 37.0-54.0 N PLATELET COUNT (test code = PLT) 204 x10 3/uL 150-400 N MEAN PLATELET VOLUME (test c ode = MPV) 9.6 fL 7.0-9.0 H NEUTROPHIL % (test code = NT%) 50.9 % 56.0-77.0 L IMMATURE GRANULOCYTE % (test code = IG%) 0.3 % 0.0-2.0 N LYMPHOCYTE % (test code = LY%) 30.0 % 14.0-32.0 N MONOCYTE % (test code = MO%) 12.6 % 4.8-9.0 H EOSINOPHIL % (test code = EO%) 4.9 % 0.3-3.7 H BASOPHIL % (test code = BA%) 1.3 % 0.0-2.0 N NUCLEATED RBC % (test code = NRBC%) 0.0 % 0-0 N NEUTROPHIL # (test code = NT#) 1.99 x10 3/uL 2.0-7.6 L IMMATURE GRANULOCYTE # (test code = IG#) 0.01 x10 3/uL 0.00-0.03 N LYMPHOCYTE # (test code = LY#) 1.17 x10 3/uL 1.0-3.8 N MONOCYTE # (test code = MO#) 0.49 x10 3/uL 0.1-0.8 N EOSINOPHIL # (test code = EO#) 0.19 x10 3/uL 0.0-0.2 N BASOPHIL # (test code = BA#) 0.05 x10 3/uL 0.0-0.2 N NUCLEATED RBC # (test code = NRBC#) 0.00 x10 3/uL 0.0-0.1 N MANUAL DIFF REQUIRED (test c ode = MDIFF) NO PROTHROMBIN [id number] 06:35:00* Test Item Value Reference Range Interpretation Comme nts PROTHROMBIN TIME PATIENT (test code = PTP) 11.7 SECONDS 9.3-12.9 N INTERNATIONAL NORMAL RATIO (test code = INR) 1.1 0.8-1.2 N TARGET INR BY INDICATION Indication INR1. Prophylaxis of venous thrombosis 2.0 - 3.0 (orthopedic surgery), Prophylaxis of venous thrombosis (other than high-risk surgery), Treatment of Deep Vein Thrombosis/Pulmonary Embolism, Prevention of systemic embolism - Tissue heart valves, Acute Myocardial Infarction (to prevent systemic embolism), Valvular heart disease, Atrial Fibrillation, Bileaflet mechanical valve in aortic position.2. Mechanical prosthetic valves (high risk), 2.5 - 3.5 Presence of Lupus Anticoagulant or Antiphospholipid Antibodies, Prevention of systemic embolism - Acute Myocardial Infarction (to prevent recurrent infarct). THROMBOPLASTIN TIME [id number] 06:35:00* Test Item Value Reference Range Interpretation [facility] THROMBOPLASTIN TIME PARTIAL (test code = PTT) 35.6 Seconds 25.0-39.5 N Therapeutic Rang e: 50.4 - 88.3 Seconds Effective 01/09/2019 PROTHROMBIN [id number] 06:33:00* Test Item Value Reference Range Interpretation [facility] PROTHROMBIN TIME PATIENT (test code = PTP) 11.7 SECONDS 9.3-12.9 N INTERNATIONAL NORMAL RATIO (test code = INR) 1.1 0.8-1.2 N TARGET INR BY INDICATION Indication INR1. Prophylaxis of venous thrombosis 2.0 - 3.0 (orthopedic surgery), Prophylaxis of venous thrombosis (other than high-risk surgery), Treatment of Deep Vein Thrombosis/Pulmonary Embolism, Prevention of systemic embolism - Tissue heart valves, Acute Myocardial Infarction (to prevent systemic embolism), Valvular heart disease, Atrial Fibrillation, Bileaflet mechanical valve in aortic position.2. Mechanical prosthetic valves (high risk), 2.5 - 3.5 Presence of Lupus Anticoagulant or Antiphospholipid Antibodies, Prevention of systemic embolism - Acute Myocardial Infarction (to prevent recurrent infarct). THROMBOPLASTIN TIME [id number] 06:33:00* Test Item Value Reference Range Interpretation [facility] THROMBOPLASTIN TIME PARTIAL (test code = PTT) Seconds 25.0-39.5 TROPONIN [id number] 00:32:00* Test Item Value Reference Range Interpretation [facility] TROPONIN I (test code = 4404697653) <0.012 See_Comment [Automated message] The system which generated this result transmitted reference range: <=0.034 ng/mL. The reference range was not used to interpret this result as normal/abnormal. SHANNAN (test code = SHANNAN) Equal or Less than 0.034 ng/ml---Normal ?Note: Cardiac troponin begins to rise 3-4 hours after the onset of ischemia. Repeat in 4-6 hours if the sample was drawn within 3-4 hours of the onset of the symptom and found normal. Between 0.035 and 0.120 ng/mL--- Borderline. Questionable myocardial injury or necrosis ? ?Note: Serial measurement may be necessary to confirm or exclude the diagnosis of myocardial injury or necrosis; Clinical correlation (symptoms, EKGs, imaging studies, and others) required; Repeat in 4-6 hours if clinically indicated. ? Equal or Higher than 0.121 ng/mL---Abnormal. Myocardial Injury or Necrosis Likely ? Biotin has been reported to cause a negative bias, interpret results relative to patient's use of biotin. ? Lab Interpretation (test code = 25553-2) [facility] ([id number])2019-11-12 00:21:00* Test Item Value Reference Range Interpretation Comme nts NA (test code = 6759228743) 140 mmol/L 135-145 K (test code = 6776816033) 3.7 mmol/L 3.5-5 CL (test code = 0941612140) 101 mmol/L 98-108 CO2 TOTAL (test code = 5593939796) 33 mmol/L 23-31 H AGAP (test code = 9312281362) 2-16 BUN (test code = 7742922930) 18 mg/dL 7-23 GLUCOSE (test code = 4708848600) 111 mg/dL 70-110 H CREATININE (test code = 8765631039) 0.87 mg/dL 0.5-1.04 TOTAL BILI (test code = 9835430208) 0.4 mg/dL 0.1-1.1 CALCIUM (test code = 0185489924) 10.1 mg/dL 8.6-10.6 T PROTEIN (test code = 5095127849) 7.3 g/dL 6.3-8.2 ALBUMIN (test code = 6493841185) 4.5 g/dL 3.5-5 ALK PHOS (test code = 6796691156) 63 U/L 34-122 ALTv (test code = 1742-6) 18 U/L 5-35 AST(SGOT) (test code = 8736422027) 34 U/L 13-40 eGFR Calculation (Non-) (test code = 2309265390) mL/min/1.73m2 eGFR Calculation () (test code = 8674026684) mL/min/1.73m2 SHANNAN (test code = SHANNAN) Association of Glomerular Filtration Rate (GFR) and Staging of Kidney Disease* + --+ --+ ------+| GFR (mL/min/1.73 m2) ?| With Kidney Damage ?| ?Without Kidney Damage+ --------+ --------+ +| ?>90 ?| ?Stage one ?| ? Normal ?+ ---+ ---+ -------+| ?60-89 ?| ?Stage two ?| ? Decreased GFR ? + --+ --+ ------+| ?30-59 ?| ?Stage three ?| ? Stage three ? + --+ --+ ------+| ?15-29 ?| ?Stage four ? | ? Stage four ?+ ---+ ---+ -------+| ?<15 (or dialysis) ? ?| ?Stage five ? | ? Stage five ?+ ---+ ---+ -------+ *Each stage assumes the associated GFR level has been in effect for at least three months. ?Stages 1 to 5, with or without kidney disease, indicate chronic kidney disease. Notes: Determination of stages one and two (with eGFR >59mL/min/1.73 m2) requires estimation of kidney damage for at least three months as defined by structural or functional abnormalities of the kidney, manifested by either:Pathological abnormalities or Markers of kidney damage (including abnormalities in the composition of the blood or urine or abnormalities in imaging tests). Lab Interpretation (test code = 12869-2) [facility]normal [facility] Hospital[facility], [id number] 00:21:00* Test Item Value Reference Range Interpretation Comme nts LIPASE (test code = 0341630143) 95 U/L 0-220 Lab Interpretation (test cod e = 18197-1) Normal [facility] 2 [id number] 00:18:22Impression: No radiographic evidence for acute cardiopulmonary disease. RL: 460 AFC: [id number] Indication: Chest pain Comparison: None Findings: PA and lateral views of the chest. The cardiopericardialsilhouette is within normal limits. The lungs are clear bilaterally. Thevisualized bony thorax is intact. [facility], Radiant Results Inft User - 11/11/2019 6:20 PM CSTIndication: Chest painComparison: NoneFindings: PA and lateral viewsof the chest. The cardiopericardialsilhouette is within normal limits. The lungs are clear bilaterally. Thevisualized bony thorax is intact.IMPRESSIONImpression:No radiographic evidence for acute card iopulmonary disease.RL: 460AFC: [id number] signed by Kenyetta De Leon MD, PhD at 11/11/2019 6:18 PMUnHCA [facility] PearlandaPTT2020-02-17 00:17:00* Test Item Value Reference Range Interpretation Comme nts APTT Patient (test code = 3173-2) See_Comment [Automated message] The system which generated this result transmitted reference range: 23 - 38 Seconds. The reference range was not used to interpret this result as normal/abnormal. SHANNAN (test code = SHANNAN) The [facility] patient population mean normal value for aPTT is 30 seconds. Lab Interpretation (test code = 47080-5) Normal [facility] HospitalUrinalysis2020-02-17 00:15:00* Test Item Value Reference Range Interpretation Comme nts APPEARANCE (test code = 6672114319) Clear Clear COLOR (test code = 3695435888) Yellow Yellow PH (test code = 6925741352) 4.8-8.0 SP GRAVITY (test code = 8691281923) 1.003-1.030 GLU U QUAL (test code = 0220572990) Normal Normal BLOOD (test code = 0963994185) Negative Negative KETONES (test code = 3130090370) Negative Negative PROTEIN (test code = 2887-8) Negative Negative UROBILIN (test code = 8127910845) Normal Normal BILIRUBIN (test code = 6823634614) Negative Negative NITRITE (test code = 7023678668) Negative Negative LEUK ADELITA (test code = 3599571018) Negative Negative RBC/HPF (test code = 0993508901) See_Comment [Automated messa ge] The system which generated this result transmitted reference range: 0 - 3 HPF. The reference range was not used to interpret this result as normal/abnormal. WBC/HPF (test code = 2286767806) <1 See_Comment [Automated messa ge] The system which generated this result transmitted reference range: 0 - 5 HPF. The reference range was not used to interpret this result as normal/abnormal. BACTERIA (test code = 4823597620) Negative Negative MUCOUS (test code = 3166663599) Slight Negative LPF A SQ EPITH (test code = 4092133408) HPF Lab Interpretation (test code = 35732-1) [facility]normal [facility] HospitalPROT[facility]BIN [facility] / [id number] 00:15:00* Test Item Value Reference Range Interpretation Comme nts PROTIME PATIENT (test code = 5964-2) See_Comment L [Automated messa ge] The system which generated this result transmitted reference range: 12.0 - 14.7 Seconds. The reference range was not used to interpret this result as normal/abnormal. INR (test code = 6301-6) Normal INR <1.1; Warfarin Therapeutic range 2.0 to 3.0 or 2.5 to 3.5, depending upon the indications. Lab Interpretation (test code = 19948-0) [facility]normal [facility] HospitalCBC WITH [id number] 00:03:00* Test Item Value Reference Range Interpretation Comme nts WBC (test code = 6690-2) See_Comment [Automated messa ge] The system which generated this result transmitted reference range: 4.30 - 11.10 10*3/?L. The reference range was not used to interpret this result as normal/abnormal. RBC (test code = 789-8) See_Comment [Automated messa ge] The system which generated this result transmitted reference range: 3.93 - 5.25 10*6/?L. The reference range was not used to interpret this result as normal/abnormal. HGB (test code = 718-7) 14.0 g/dL 11.6-15 HCT (test code = 4544-3) 43.7 % 35.7-45.2 MCV (test code = 787-2) 95.2 fL 80.6-95.5 MCH (test code = 785-6) 30.5 pg 25.9-32.8 MCHC (test code = 786-4) 32.0 g/dL 31.6-35.1 RDW-SD (test code = 62216-3) 43.4 fL 39-49.9 RDW-CV (test code = 788-0) 12.5 % 12-15.5 PLT (test code = 777-3) See_Comment [Automated messa ge] The system which generated this result transmitted reference range: 166 - 358 10*3/?L. The reference range was not used to interpret this result as normal/abnormal. MPV (test code = 15870-2) 9.2 fL 9.5-12.9 L NRBC/100 WBC (test code = 5974514746) See_Comment [Automated [employer] ssage] The system which generated this result transmitted reference range: 0.0 - 10.0 /100 WBCs. The reference range was not used to interpret this result as normal/abnormal. NRBC x10^3 (test code = 1804896458) <0.01 See_Comment [Automated messa ge] The system which generated this result transmitted reference range: 10*3/?L. The reference range was not used to interpret this result as normal/abnormal. GRAN MAT (NEUT) % (test code = 770-8) 55.3 % IMM GRAN % (test code = 7518867332) 0.00 % LYMPH % (test code = 736-9) 31.5 % MONO % (test code = 5905-5) 10.4 % EOS % (test code = 713-8) 2.0 % BASO % (test code = 706-2) 0.8 % GRAN MAT x10^3(ANC) (test code = 0950457773) 2.78 10*3/uL 1.88-7.09 IMM GRAN x10^3 (test code = 2921888378) <0.03 0-0.06 LYMPH x10^3 (test code = 731-0) 1.58 10*3/uL 1.32-3.29 MONO x10^3 (test code = 742-7) 0.52 10*3/uL 0.33-0.92 EOS x10^3 (test code = 711-2) 0.10 10*3/uL 0.03-0.39 BASO x10^3 (test code = 704-7) 0.04 10*3/uL 0.01-0.07 Lab Interpretation (test code = 34650-9) Abnormal [facility] HospitalHEMOGLOBIN [id number] 00:00:00* Test Item Value Reference Range Interpretation Comme nts HEMOGLOBIN A1c (test code = 20398) 5.4 % Wilfred RiddleCOMPREHENSIVE METABOLIC [id number] 00:00:00* Test Item Value Reference Range Interpretation Comme nts GLUCOSE (test code = 2217) 102 MG/DL BUN (test code = 2208) 20 MG/DL CREATININE (test code = 2214) 0.66 MG/DL eGFR AMER. (test cod e = 33961) 108 ML/MIN/1.73 eGFR NON- AMER. (test code = 88391) 93 ML/MIN/1.73 CALC BUN/CREAT (test code = 2235) 30 RATIO SODIUM (test code = 2231) 141 MEQ/L POTASSIUM (test code = 2228) 4.4 MEQ/L CHLORIDE (test code = 2215) 101 MEQ/L CARBON DIOXIDE (test code = 2206) 28 MEQ/L CALCIUM (test code = 2209) 10.1 MG/DL PROTEIN, TOTAL (test code = 2229) 6.8 G/DL ALBUMIN (test code = 2201) 4.2 G/DL CALC GLOBULIN (test code = 2240) 2.6 G/DL CALC A/G RATIO (test code = 2234) 1.6 RATIO BILIRUBIN, TOTAL (test code = 2207) 0.4 MG/DL ALKALINE PHOSPHATASE (test code = 2204) 59 U/L AST (test code = 2218) 19 U/L ALT (test code = 2219) 13 U/L Wilfred RiddleLIPID [id number] 00:00:00* Test Item Value Reference Range Interpretation Comme nts CHOLESTEROL (test code = 2210) 288 MG/DL TRIGLYCERIDES (test code = 2232) 156 MG/DL HDL CHOLESTEROL (test code = 2220) 82 MG/DL CALC LDL CHOL (test code = 2237) 175 MG/DL RISK RATIO LDL/HDL (test cod e = 2238) 2.13 RATIO Wilfred RiddleCOMPREHENSIVE METABOLIC [id number] 00:00:00* Test Item Value Reference Range Interpretation Comme nts GLUCOSE (test code = 2217) 100 MG/DL BUN (test code = 2208) 15 MG/DL CREATININE (test code = 2214) 0.76 MG/DL eGFR AMER. (test cod e = 53480) 97 ML/MIN/1.73 eGFR NON- AMER. (test code = 76632) 83 ML/MIN/1.73 CALC BUN/CREAT (test code = 2235) 20 RATIO SODIUM (test code = 2231) 143 MEQ/L POTASSIUM (test code = 2228) 4.1 MEQ/L CHLORIDE (test code = 2215) 104 MEQ/L CARBON DIOXIDE (test code = 2206) 31 MEQ/L CALCIUM (test code = 2209) 8.5 MG/DL PROTEIN, TOTAL (test code = 2229) 6.0 G/DL ALBUMIN (test code = 2201) 3.7 G/DL CALC GLOBULIN (test code = 2240) 2.3 G/DL CALC A/G RATIO (test code = 2234) 1.6 RATIO BILIRUBIN, TOTAL (test code = 2207) 0.2 MG/DL ALKALINE PHOSPHATASE (test code = 2204) 47 U/L AST (test code = 2218) 26 U/L ALT (test code = 2219) 17 U/L Wilfred Wyman AustinLIPID [id number] 00:00:00* Test Item Value Reference Range Interpretation Comme nts CHOLESTEROL (test code = 2210) 186 MG/DL TRIGLYCERIDES (test code = 2232) 154 MG/DL HDL CHOLESTEROL (test code = 2220) 63 MG/DL CALC LDL CHOL (test code = 2237) 92 MG/DL RISK RATIO LDL/HDL (test cod e = 2238) 1.46 RATIO Wilfred RiddleHEMOGLOBIN [id number] 00:00:00* Test Item Value Reference Range Interpretation Comme nts HEMOGLOBIN A1c (test code = 08257) 5.8 % Wilfred RiddleCOMPREHENSIVE METABOLIC [id number] 00:00:00* Test Item Value Reference Range Interpretation Comme nts GLUCOSE (test code = 2217) 92 MG/DL BUN (test code = 2208) 18 MG/DL CREATININE (test code = 2214) 0.67 MG/DL eGFR AMER. (test cod e = 37986) 109 ML/MIN/1.73 eGFR NON- AMER. (test code = 46618) 94 ML/MIN/1.73 CALC BUN/CREAT (test code = 2235) 27 RATIO SODIUM (test code = 2231) 144 MEQ/L POTASSIUM (test code = 2228) 4.1 MEQ/L CHLORIDE (test code = 2215) 107 MEQ/L CARBON DIOXIDE (test code = 2206) 26 MEQ/L CALCIUM (test code = 2209) 8.8 MG/DL PROTEIN, TOTAL (test code = 2229) 6.4 G/DL ALBUMIN (test code = 2201) 4.2 G/DL CALC GLOBULIN (test code = 2240) 2.2 G/DL CALC A/G RATIO (test code = 2234) 1.9 RATIO BILIRUBIN, TOTAL (test code = 2207) 0.4 MG/DL ALKALINE PHOSPHATASE (test code = 2204) 55 U/L AST (test code = 2218) 20 U/L ALT (test code = 2219) 17 U/L Wilfred Wyman LutzLIPID [id number] 00:00:00* Test Item Value Reference Range Interpretation Comme nts CHOLESTEROL (test code = 2210) 219 MG/DL TRIGLYCERIDES (test code = 2232) 102 MG/DL HDL CHOLESTEROL (test code = 2220) 75 MG/DL CALC LDL CHOL (test code = 2237) 124 MG/DL RISK RATIO LDL/HDL (test cod e = 2238) 1.65 RATIO Wilfred Wyman SanjeevCOMPREHENSIVE METABOLIC [id number] 00:00:00* Test Item Value Reference Range Interpretation Comme nts GLUCOSE (test code = 2217) 92 MG/DL BUN (test code = 2208) 13 MG/DL CREATININE (test code = 2214) 0.78 MG/DL eGFR AMER. (test cod e = 90610) 94 ML/MIN/1.73 eGFR NON- AMER. (test code = 57935) 81 ML/MIN/1.73 CALC BUN/CREAT (test code = 2235) 17 RATIO SODIUM (test code = 2231) 143 MEQ/L POTASSIUM (test code = 2228) 4.1 MEQ/L CHLORIDE (test code = 2215) 103 MEQ/L CARBON DIOXIDE (test code = 2206) 24 MEQ/L CALCIUM (test code = 2209) 9.0 MG/DL PROTEIN, TOTAL (test code = 2229) 6.2 G/DL ALBUMIN (test code = 2201) 4.1 G/DL CALC GLOBULIN (test code = 2240) 2.1 G/DL CALC A/G RATIO (test code = 2234) 2.0 RATIO BILIRUBIN, TOTAL (test code = 2207) 0.4 MG/DL ALKALINE PHOSPHATASE (test code = 2204) 52 U/L AST (test code = 2218) 21 U/L ALT (test code = 2219) 16 U/L Wilfred RiddleLIPID [id number] 00:00:00* Test Item Value Reference Range Interpretation Comme nts CHOLESTEROL (test code = 2210) 251 MG/DL TRIGLYCERIDES (test code = 2232) 143 MG/DL HDL CHOLESTEROL (test code = 2220) 74 MG/DL CALC LDL CHOL (test code = 2237) 148 MG/DL RISK RATIO LDL/HDL (test cod e = 2238) 2.01 RATIO Wilfred RiddleCBC W/AUTO [id number] 00:00:00* Test Item Value Reference Range Interpretation Comme nts WBC (test code = 1001) 3.8 K/UL RBC (test code = 1002) 4.21 M/UL HEMOGLOBIN (test code = 1003) 12.9 G/DL HEMATOCRIT (test code = 1004) 39.1 % MCV (test code = 1005) 92.9 fL MCH (test code = 1006) 30.6 PG MCHC (test code = 1007) 33.0 G/DL RDW (test code = 1038) 13.6 % NEUTROPHILS (test code = 1008) 67.7 % LYMPHOCYTES (test code = 1010) 21.1 % MONOCYTES (test code = 1011) 9.1 % EOSINOPHILS (test code = 1012) 1.6 % BASOPHILS (test code = 1013) 0.5 % PLATELET COUNT (test code = 1015) 204 K/UL Wilfred RiddleHEMOGLOBIN [id number] 00:00:00* Test Item Value Reference Range Interpretation Comme nts HEMOGLOBIN A1c (test code = 98941) 5.7 % Wilfred [id number] 00:00:00* Test Item Value Reference Range Interpretation Comme nts TSH (test code = 2821) 1.4 UIU/ML Wilfred RiddleHPV HIGH RISK WITH GENOTYPE, [id number] 00:00:00* Test Item Value Reference Range Interpretation Comme nts HPV HIGH RISK INTERP (test c ode = 79183) NEGATIVE HPV 16 (test code = 00874) NEGATIVE HPV 18 (test code = 93889) NEGATIVE HPV, HR, OTHER GENOTYPES (te st code = 03713) NEGATIVE Wilfred RiddlePAP TEST, THINPREP, [id number] 00:00:00* Test Item Value Reference Range Interpretation Comme nts SOURCE: (test code = 8001) A) Cervical/Endocervical SLIDES: (test code = 8011) 1 LMP: (test code = 8021) NOT GIVEN SPECIMEN ADEQUACY: (test code = 79551) (NOTE) INTERPRETATION: (test code = 78879) NO EPITHELIAL ABNORMALITY SEE BELOW INSURANCE PROCESSING CLERK: (test code = 8101) DONIS Lezama(ASCP)IAC LOCATION: (test code = 74442) (NOTE) CPT: (test code = 8140) (NOTE) Wilfred RiddleCOMPREHENSIVE METABOLIC [id number] 00:00:00* Test Item Value Reference Range Interpretation Comme nts GLUCOSE (test code = 2217) 78 MG/DL BUN (test code = 2208) 18 MG/DL CREATININE (test code = 2214) 0.72 MG/DL eGFR AMER. (test cod e = 26226) 105 ML/MIN/1.73 eGFR NON- AMER. (test code = 65928) 90 ML/MIN/1.73 CALCULATED BUN/CREAT (test code = 2235) 25 RATIO SODIUM (test code = 2231) 138 MEQ/L POTASSIUM (test code = 2228) 3.8 MEQ/L CHLORIDE (test code = 2215) 104 MEQ/L CARBON DIOXIDE (test code = 2206) 27 MEQ/L CALCIUM (test code = 2209) 9.2 MG/DL PROTEIN, TOTAL (test code = 2229) 6.0 G/DL ALBUMIN (test code = 2201) 3.7 G/DL CALCULATED GLOBULIN (test code = 2240) 2.3 G/DL CALCULATED A/G RATIO (test code = 2234) 1.6 RATIO BILIRUBIN, TOTAL (test code = 2207) 0.5 MG/DL ALKALINE PHOSPHATASE (test code = 2204) 49 U/L SGOT (AST) (test code = 2218) 17 U/L SGPT (ALT) (test code = 2219) 13 U/L Wilfred RiddleLIPID [id number] 00:00:00* Test Item Value Reference Range Interpretation Comme nts CHOLESTEROL (test code = 2210) 239 MG/DL TRIGLYCERIDES (test code = 2232) 114 MG/DL HDL CHOLESTEROL (test code = 2220) 72 MG/DL CALCULATED LDL CHOL (test co de = 2237) 144 MG/DL RISK RATIO LDL/HDL (test cod e = 2238) 2.00 RATIO Wilfred RiddleCBC W/AUTO [id number] 00:00:00* Test Item Value Reference Range Interpretation Comme nts WBC (test code = 1001) 3.2 K/UL RBC (test code = 1002) 4.51 M/UL HEMOGLOBIN (test code = 1003) 14.0 G/DL HEMATOCRIT (test code = 1004) 42.4 % MCV (test code = 1005) 94.0 fL MCH (test code = 1006) 31.0 PG MCHC (test code = 1007) 33.0 G/DL RDW (test code = 1038) 13.4 % NEUTROPHILS (test code = 1008) 54 % LYMPHOCYTES (test code = 1010) 33 % MONOCYTES (test code = 1011) 10 % EOSINOPHILS (test code = 1012) 2 % BASOPHILS (test code = 1013) 1 % PLATELET COUNT (test code = 1015) 176 K/UL Wilfred RiddleHEMOGLOBIN [id number] 00:00:00* Test Item Value Reference Range Interpretation Comme nts HEMOGLOBIN A1c (test code = 38667) 5.8 % Wilfred [id number] 00:00:00* Test Item Value Reference Range Interpretation Comme nts TSH (test code = 2821) 1.4 UIU/ML Wilfred RiddleMRI Shoulder Rt Wo ContMRI Shoulder Rt Wo Cont Notes | Date/Time Note Provider Source Wilfred Riddle [facility]2024-08-23 08:30:00 ASSESSMENT SUMMARY GILLIAN VERDUGO is a 69 year old woman seen today by [facility] for a [facility] Visit. Urgent Concerns- Mrs Verdugo is a pleasant, well educated patient with no acute complaints or concerns. She had ablation for a-fib in February with follow up in June. She was interested after follow up in discussing medications she needs to continue such as Eliquis and if venlafaxine could also be changed with heart rate side effects. Follow-Ups ScheduledFollow up with primary care and specialists as scheduled. Follow up with [facility] annually and as needed. Additional CommentsMember verified for HIPAA compliance using Name, , and location. Member is physically located in the state of their confirmed physical address at the time of visit. Telemedicine consent obtained prior to visit. Visit PurposeThese visits are scheduled to augment PCPs to close care and documentation gaps, reconcile medications, help patients make full use of their [facility] benefits and educate patients about their conditions. This visit DOES NOT replace the your Annual Medicare Visit with the patient. The member was encouraged to schedule an AWV with their PCP to review our visit summary & recommendations. See below for teaching and instruction given regarding specific diagnoses. Member verbalized understanding to all. Members Preferred Language [place] Patient Currently Located in their home state of [place], YES DIAGNOSIS SUMMARY * N18.31 - Chronic kidney disease, stage 3a * R73.03 - Prediabetes PATIENT INTAKE Has the patient had an Annual Wellness Visit this calendar year?: AWV already completed MEDICATION RECONCILIATION Did you review the patient's prescription and non-prescription drugs, vitamins, herbal remedies, and other supplements, AND is the accompanying medication list documented in the medical record?: Yes GENERAL ASSESSMENT Pounds: 187 Supplemental oxygen status: Room Air Supplemental Oxygen Needs: Does not need supplemental oxygen MEDICATION REFILLS Please confirm: Are any of the medications listed above within 30 days of their next fill date, or past due of their next fill date?: No RENAL - Chronic Kidney Disease Does patient carry a diagnosis of chronic kidney disease?: Yes Dx: N18.31 - Chronic kidney disease, stage 3a Notes for N131: - Stage 3a CKD - Most recent GFR: 52 ML/MIN/1.73 05/07/2024 - Previous GFR: 70 on 10/04/2023 - Currently prescribed lisinopril - Recommend low sodium diet, avoidance of NSAIDS, tight control of blood pressure and blood sugar - Follows with PCP * ACTION: Confirm that the patient is on an JOAQUIN inhibitor or ARB COMMON DIAGNOSES The patient has a diagnosis of prediabetes: Yes Dx: R73.03 - Prediabetes Notes for R73.03: HgbA1c 6.0% 05/07/2024 Not currently on any medications Prediabetes managed with lifestyle modifications Recommend limit sugar, carbs and increase exercise Followed by PCP ASSESSMENT SUMMARY Member medical history, medications, and most recent labs reviewed in [facility]. Discussed medication use and side effects with members prior to prescribing. Drug interactions reviewed: Yes APPOINTMENT CPT CODE* Please indicate how this visit was conducted: Video Please select the video platform used during the visit: [employer] Video Room Please record the total amount of time you spent on this patient visit- Total time includes time spent on preparation, speaking with the patient, documentation, and post-visit coordination of care - This is limited to time spent ON THE DATE OF SERVICE (e.g. does not include time spent on days prior to or after the date of service) 20 - 29 minutes Rick Hackett [id number]:10:[id number] [place] [address] PATIENT NAME: GILLIAN VERDUGO ADMIT DATE: 02/27/24 ACCOUNT NO: [id number] [facility] AGE: 69 REPORT TYPE: eTRANSESOPHAGEAL ECHO SEX: F ADMITTING PHYSICIAN:Alok Cole MD ATTENDING PHYSICIAN:Alok Cole MD *[facility]* [address] [place] [address] Transesophageal Echocardiogram Patient: Gillian Verdugo Study Date: 02/27/2024 BP: URN: [id number] Location: : 1955 Age: 69 Gender: F Height: / Weight: / BMI/BSA: / *Ordering Physician: * Alok Cole MD *Interpreting Physician: * Alok Cole MD *Stone Spreader Operator: * Victor HugoSarahi mayes RCS Indications: A FIB. Study data: Consent: The risks, benefits, and alternatives to the procedure were explained to the patient and informed consent was obtained. Procedure: The patient arrived at the laboratory in a fasting state. Intravenous access was obtained. Surface ECG leads and pulse oximetric signals were monitored. Moderate sedation was administered by cardiology staff. A transesophageal echocardiogram was performed. Topical anesthesia was obtained using viscous lidocaine. A transesophageal probe was inserted by the attending medical underwriter without difficulty. Images were obtained using a [employer] cardiac ultrasound machine. Image quality was adequate. Complete 2D, complete spectral Doppler, and color Doppler. Location: Catheterization laboratory. Patient status: Outpatient. Patient room number: 03. Study status: Routine. Study completion: The patient tolerated the procedure well. There were no complications. PATIENT NAME: GILLIAN VERDUGO [id number] [place] [address] PATIENT NAME: GILLIAN VERDUGO ADMIT DATE: 02/27/24 ACCOUNT NO: [id number] ROOM NO: Z.DC4T AGE: 69 REPORT TYPE: eTRANSESOPHAGEAL ECHO SEX: F ADMITTING PHYSICIAN:Alok Cole MD ATTENDING PHYSICIAN:Alok Cole MD Findings Left ventricle: The cavity size is normal. Systolic function is normal. Right ventricle: The cavity size is normal. Systolic function is normal. Left atrium: The atrium is dilated. There is no evidence of a thrombus in the atrial cavity or appendage. There is mild spontaneous echo contrast ("smoke"). Appendage: The appendage is of normal size. Emptying velocity is normal. Atrial septum: No defect or patent foramen ovale is identified by color Doppler and/or agitated saline contrast. Color Doppler and/or agitated saline contrast study shows no zplpm-sx-lveu atrial level shunt. Aortic valve: The valve is structurally normal. The valve is trileaflet. Cusp separation is normal. There is no evidence of a vegetation. There is no evidence of stenosis. There is no regurgitation. Mitral valve: Prolapse. There is no evidence of vegetation. There is no evidence of stenosis. There is moderate regurgitation. Tricuspid valve: The valve is structurally normal. There is no evidence of a vegetation. There is no regurgitation. Pulmonic valve: Not well visualized. There is no evidence of a vegetation. There is no regurgitation. Pericardium: There is no pericardial effusion. Conclusions Summary: 1. Left ventricle: The cavity size is normal. Systolic function is normal. 2. Left atrium: The atrium is dilated. There is no evidence of a thrombus in the atrial cavity or appendage. There is mild spontaneous echo contrast ("smoke"). 3. Atrial septum: No defect or patent foramen ovale is identified by color Doppler and/or agitated saline contrast. Color Doppler and/or agitated saline contrast study shows no zrztr-gs-isfv atrial level shunt. 4. Aortic valve: There is no evidence of a vegetation. 5. Mitral valve: Prolapse. There is no evidence of vegetation. There is moderate regurgitation. 6. Tricuspid valve: There is no evidence of a vegetation. 7. Pulmonic valve: There is no evidence of a vegetation. Electronically signed by PATIENT NAME: GILLIAN VERDUGO [id number] [address] PATIENT NAME: GILLIAN VERDUGO ADMIT DATE: 02/27/24 ACCOUNT NO: [id number] ROOM NO: Z.DC4T AGE: 69 REPORT TYPE: eTRANSESOPHAGEAL ECHO SEX: F ADMITTING PHYSICIAN:Alok Cole MD ATTENDING PHYSICIAN:Alok Cole MD, Gregory MD 03/06/2024 15:10 at 1510 PATIENT NAME: GILLIAN VERDUGO 08:31:00 [id number] [address] PATIENT NAME: GILLIAN VERDUGO ADMIT DATE: 02/27/24 ACCOUNT NO: [id number] ROOM NO: Z.DC4T AGE: 69 REPORT TYPE: CARDIAC CATHETERIZATION REPORT SEX: F ADMITTING PHYSICIAN:Alok Cole MD ATTENDING PHYSICIAN:Alok Cole MD PROCEDURE DATE: 02/27/2024 PROCEDURE: Comprehensive electrophysiology study with pulmonary vein isolation/atrial fibrillation ablation. PREPROCEDURE DIAGNOSIS: Paroxysmal atrial fibrillation. POSTPROCEDURE DIAGNOSIS: Paroxysmal atrial fibrillation. BIG DATA LEAD: Alok Cole MD FARMWORKER BULBS: None. ANESTHESIA: General endotracheal anesthesia. PROCEDURE DETAILS: After informed consent was obtained explaining to the patient the risks and benefits, the patient was brought to the cardiac catheterization lab in the fasting postabsorptive state. She was prepped and draped in sterile fashion. Local anesthesia was applied over both femoral veins with 1% lidocaine. Access to the veins was obtained using modified Seldinger technique with a micropuncture kit and ultrasound guidance. A 16-English sheath was placed in the right femoral vein. An 6-English, 8-English, and 9-English sheaths were placed in the left femoral vein. All sheaths were aspirated and flushed and connected to heparinized saline infusion. A 5-English Jake catheter was advanced via the 6-English sheath and placed in the right ventricle. A decapolar catheter was advanced via the 8-English sheath and placed in the coronary sinus. An intracardiac echocardiography catheter was advanced via the 9-English sheath and placed in the right atrium. Intracardiac echocardiography was performed to visualize the interatrial septum and map the left atrium. VersaCross RF wire was then advanced via the 16-English sheath into the right atrium. The VersaCross sheath was advanced over the wire into the right atrium. The wire and sheath were withdrawn into the posterior septal region. After appropriate placement on the interatrial septum, a transseptal puncture was performed using RF energy with the VersaCross wire. The wire was advanced into the left atrium. The sheath was advanced over the wire across the septum and then removed. The Medtronic FlexCath sheath was then advanced over the wire into the left atrium. The dilator and wire removed. The sheath was aspirated and flushed and connected to heparinized saline infusion. Octaray catheter was then advanced via the FlexCath sheath into the left atrium. A 3-dimensional interatrial map was created of the left atrium and pulmonary veins. The Medtronic cryoballoon was then prepped and advanced via the sheath into the left atrium after removing the Octaray catheter. A sequential isolation of the PATIENT NAME: GILLIAN VERDUGO pulmonary veins was then performed. Esophageal temperature monitoring was utilized throughout. Phrenic nerve pacing was utilized while isolating the right pulmonary veins. At the end of the procedure, all catheters were removed. Following isolation of the veins, a post-isolation map was created with the Octaray catheter. The right superior pulmonary vein remained unisolated initially. Additional segmental applications of cryotherapy were made to the right superior pulmonary vein. The balloon was removed and the Octaray catheter was readvanced into the left atrium. Map of the right superior pulmonary vein then confirmed entrance block. At the end of the procedure, all catheters were removed. The sheaths were aspirated and flushed. The 16-English sheath was removed and hemostasis achieved with a Perclose suture. The 3 sheaths in the left femoral vein were removed and hemostasis achieved with Vascade devices. The patient tolerated the procedure well with no complications. CONCLUSION: 1. Successful pulmonary vein isolation. 2. Estimated blood loss 10 mL. 3. No complications. Dictated By: Alok Cole MD Date Dictated: 02/28/2024 08:31:54 Date Transcribed: 02/28/2024 08:40:32 GSP/AFS Receipt ID: [id number] Authenticated by Alok Cole MD On 03/01/2024 05:09:34 PM at 0509 PATIENT NAME: GILLIAN VERDUGO 07:13:00 [facility] Cardiology Progress Note REPORT#:[id number] REPORT STATUS: Signed REPORT INITIALIZATION DATE:02/28/24 TIME: 712 PATIENT: GILLIAN VERDUGO UNIT #: [id number] ROOM/BED: : 54 AGE: 69 SEX: F ATTEND: Alok Cole MD ADM AUTHOR: Alok Cole MD REPT SERVICE DT/TIME: 02/28/24712 * ALL edits or amendments must be made on the electronic/computer document * Subjective Chief complaint: PAF Patient reports: No: chest pain, palpitations, shortness of breath. Objective General VS/I O: 24 hour I O ending at 0700: 02/27 0700 02/26 1900 Intake Total 350 Output Total 700 Balance -350 Intake, Oral 350 Number Voids 1 Output, Urine 700 Vital Signs: Date Time Temp Pulse Resp B/P B/P Pulse O2 O2 Flow FiO2 Mean Ox Delivery Rate 02/27 0608 86 11 108/58 78 93 /04 0500 90 15 100/52 72 93 06/04 0446 97.9 06/04 0400 90 13 90/54 66 93 06/04 0300 91 15 102/57 75 94 06/04 0200 94 15 101/59 77 93 06/04 0100 100 16 93/51 66 91 06/04 0007 97.9 06/04 0001 101 17 101/56 75 90 06/03 2300 99 14 130/57 81 95 06/03 2246 97 12 117/55 78 95 / 2244 98.1 PATIENT WEIGHT: Weight (lb): Weight (oz): Weight (kg): Medications: Active Meds + DC'd Last 24 Hrs Atorvastatin Calcium (LIPITOR) 20 MG BEDTIME PO Metoprolol Succinate (TOPROL XL) 100 MG DAILY PO Ondansetron HCl (ZOFRAN) 4 MG Q6H PRN PRN IV Acetaminophen (TYLENOL) 650 MG Q4H PRN PRN PO Flecainide Acetate (TAMBOCOR) 50 MG Q12HR PO Morphine Sulfate (morphine SULFATE (C-II)) 2 MG NOW ONE IV (DC) Physical Exam General appearance: alert, awake, oriented Head/Eyes: atraumatic, normocephalic ENT: moist mucosal membranes Neck: no JVD Cardiovascular: CV assessment: regular rate and rhythm, 2/6 HSM LSB Respiratory: clear to auscultation, no distress Lower extremity: LE assessment: no edema Musculoskeletal: full range of motion Neuro/WOUND/OSTOMY CLINICAL NURSE SPECIALIST: alert, oriented X 3, CN II-XII intact Skin: dry, intact Psychiatry: normal affect, normal judgment/insight, normal mood Diagnosis, Assessment Plan Free Text DxA P Notes Free Text DxA P Notes: IMP: PAF s/p PVI PLAN: Review labs d/c home f/u one week. at 1620 RPT #:[id number] END OF [id number]:44:[id number] [place] [id number] PATIENT NAME: GILLIAN VERDUGO ADMIT DATE: 02/27/24 ACCOUNT NO: [id number] ROOM NO: [facility] AGE: 69 REPORT TYPE: ELECTROCARDIOGRAM SEX: F ADMITTING PHYSICIAN:Alok Cole MD ATTENDING PHYSICIAN:Alok Cole MD Order: [id number] Test Reason : ATRIAL FIBRILLATION Test Date/Time Stamp: TueFeb 27 2024 09:44:59 Blood Pressure : / mmHG Vent. Rate : 063 BPM Atrial Rate : 063 BPM P-R Int : 146 ms QRS Dur : 078 ms QT Int : 426 ms P-R-T Axes : 007 032 017 degrees QTc Int : 435 ms Normal sinus rhythm Septal infarct , age undetermined Abnormal ECG Reconfirmed by CADY BLANCHARD ([id number]) on 02/29/2024 5:57:00 PM Referred By: Self Referred Confirmed by:CADY BLANCHARD at 1757 PATIENT NAME: GILLIAN VERDUGO 08:28:00 [phone] [place] [address] PATIENT NAME: GILLIAN VERDUGO ADMIT DATE: 03/22/20 ACCOUNT NO: [id number] ROOM NO: G.5531 AGE: 65 REPORT TYPE: DISCHARGE SUMMARY SEX: F ADMITTING PHYSICIAN:Gonzalo Morris DO ATTENDING PHYSICIAN:Gonzalo Morris DO ADMISSION DATE: 03/22/2020 DISCHARGE DATE: 03/25/2020 CHIEF COMPLAINT: Acute pulmonary embolism. HOSPITAL COURSE: The patient is a 65-year-old female who presents with an acute pulmonary embolism and DVT along with superficial thrombophlebitis. Pulmonary was consulted along with hematology/oncology. The patient did have a history of recent GI bleed and colitis and plans were for colonoscopy in the hospital, but the patient was too high of a risk in light of her recent PE to do a colonoscopy and GI recommended symptomatic treatment of the colitis and to follow up as an outpatient for colonoscopy in 6 months. Hematology recommended to go ahead and treat with anticoagulation for at least 3 months on Eliquis and then outpatient colonoscopy as stated above. Incidentally, the patient had some runs of SVT in the hospital, supraventricular tachycardia, and echocardiogram was unremarkable other than mitral valve prolapse and moderate mitral regurgitation and recommended metoprolol 25 mg daily to follow up as an outpatient with cardiology. She was cleared by pulmonary for discharge home on 03/25/2020. DISCHARGE DIAGNOSES: 1. Acute pulmonary embolism, deep vein thrombosis, superficial thrombophlebitis. 2. History of colitis. 3. Depression. 4. Hypertension. 5. Hyperlipidemia. 6. Supraventricular tachycardia. 7. Mitral valve prolapse and mitral regurgitation. MEDICATION ON DISCHARGE: Please see MAR. DIET: As tolerated. ACTIVITY: As tolerated. FOLLOWUP: Follow up closely with outpatient colonoscopy in 6 months. Follow with hematology for DVT, PE, and cardiology for SVT and mitral regurg, and primary care physician. Dictated By: Silvio Murrieta MD, [facility], FACP WT: DS:PAGE/ANIBAL/RONNIE PATIENT NAME: GILLIAN VERDUGO Conf#: [id number]/DID#: [id number] Authenticated by Silvio Murrieta MD On 03/26/2020 10:33:53 PM at 2234 PATIENT NAME: GILLIAN VERDUGO 13:04:00 [facility] Arun/Oncology Progress Note REPORT#:[id number] REPORT STATUS: Signed DATE:03/25/20 TIME: 1304 PATIENT: GILLIAN VERDUGO UNIT #: [id number] ROOM/BED: [place] [address] : 54 AGE: 65 SEX: F ATTEND: Gonzalo Morris DO ADM AUTHOR: Rigoberto Chambers MD * ALL edits or amendments must be made on the electronic/computer document * Subjective Chief Complaint: Pending dc today Objective Physical Exam General appearance: alert, awake, oriented HEENT: anicteric, atraumatic Neck: supple/no meningismus, no JVD Cardiovascular: regular rate and rhythm Respiratory: clear to auscultation Abdomen: non-tender, normal bowel sounds, soft, no distention Extremities: moves all, no edema Musculoskeletal: full range of motion Neuro/WOUND/OSTOMY CLINICAL NURSE SPECIALIST: alert, oriented X 3 skin dry, intact Psychiatry: normal affect Current Medications Medications: Active Meds + DC'd Last 24 Hrs Apixaban 5 MG BID PO (DCD) Apixaban 10 MG BID PO (DCD) Metronidazole 500 MG TID PO (DCD) Apixaban 10 MG BID PO (DC) Sodium Chloride 500 ML PREOP ONCALL IV (DC) Pravastatin Sodium 20 MG BEDTIME PO (DCD) Venlafaxine HCl 75 MG BEDTIME PO (DCD) Acetaminophen 1,000 MG PREOP ONCALL PO (DCD) Lactated Ringer's 1,000 ML PREOP ONCALL IV (DCD) Lidocaine HCl 2 ML PREOP ONCALL LOCAL (DCD) Lidocaine HCl 2 ML PREOP ONCALL LOCAL (DCD) Sodium Chloride 500 ML PREOP ONCALL IV (DCD) Sodium Chloride 500 ML PREOP ONCALL IV (DCD) Sodium Chloride 1,000 ML PREOP ONCALL IV (DCD) Sodium Chloride 5 ML ASDIR PRN IV (DCD) Sodium Chloride 10 ML ASDIR PRN IV (DCD) Sodium Chloride 250 ML ASDIR PRN IV (DCD) Hydrochlorothiazide 12.5 MG DAILY PO (DCD) Lisinopril 10 MG DAILY PO (DCD) Ceftriaxone Sodium 1,000 MG Q24H IV (DCD) Sodium Chloride 10 ML Metronidazole/Sodium Chloride 100 ML Q8H IV (DC) Acetaminophen 650 MG Q4H PRN PRN PO (DCD) Docusate Sodium 100 MG BID PRN PRN PO (DCD) Ondansetron HCl 4 MG Q4H PRN PRN IV (DCD) Results Findings/Data: Laboratory Tests 03/25/20 035: [Embedded Image Not Available] Laboratory Tests 03/25 350 Chemistry Sodium (134 - 147 mEq/L) 139 Potassium (3.4 - 5.0 mEq/L) 3.8 Chloride (100 - 108 mEq/L) 106 Carbon Dioxide (21 - 33 mEq/L) 28 Anion Gap (0 - 20) 9 BUN (7 - 18 mg/dL) 18 Creatinine (0.6 - 1.3 mg/dL) 0.9 Glomerular Filtr Rate (80 - 90) 62.6 L Glucose (70 - 110 mg/dL) 111 H Calcium (8.0 - 10.5 mg/dL) 8.2 Magnesium (1.8 - 2.4 mg/dL) 2.50 H Laboratory Tests 03/25 350 Hematology WBC (4.5 - 11.0 x10 3/uL) 4.14 L RBC (3.54 - 5.02 x10 6/uL) 3.99 Hgb (11.0 - 15.0 g/dL) 12.5 Hct (33.0 - 45.0 %) 38.8 MCV (81.0 - 99.0 fL) 97.2 MCH (27.0 - 33.0 pg) 31.3 MCHC (33.0 - 37.0 g/dL) 32.2 L RDW (11.5 - 14.5 %) 12.9 Plt Count (150 - 400 x10 3/uL) 197 MPV (7.0 - 9.0 fL) 9.1 H Neut % (Auto) (56.0 - 77.0 %) 52.0 L Lymph % (Auto) (14.0 - 32.0 %) 30.2 [place] % (Auto) (4.8 - 9.0 %) 11.4 H Eos % (Auto) (0.3 - 3.7 %) 4.8 H Baso % (Auto) (0.0 - 2.0 %) 1.4 Neut # (Auto) (2.0 - 7.6 x10 3/uL) 2.15 Lymph # (Auto) (1.0 - 3.8 x10 3/uL) 1.25 [place] # (Auto) (0.1 - 0.8 x10 3/uL) 0.47 Eos # (Auto) (0.0 - 0.2 x10 3/uL) 0.20 Baso # (Auto) (0.0 - 0.2 x10 3/uL) 0.06 Abs Immat Gran (auto) (0.00 - 0.03 x10 3/uL) 0.01 Add Manual Diff NO Immature Gran % (0.0 - 2.0 %) 0.2 Nucleated RBC % (0 - 0 %) 0.0 Nucleated RBCs # (Man) (0.0 - 0.1 x10 3/uL) 0.00 Diagnosis, Assessment Plan Free Text DxA P Notes Free Text DxA P Notes: ASSESSMENT AND PLAN: 1. Acute right lower lobe pulmonary embolism along with acute right lower extremity deep venous thromboses, suspected to be provoked secondary to prolonged immobility. 2. Superficial left upper extremity thrombus (left cephalic vein) secondary to recent IV insertions from hospitalization. 3. History of cardiac arrhythmia, status post ablation. 4. Recent diagnosis of infectious colitis, on antibiotics. 5. Hypertension. PLAN: -Hb stable, improved- no bleeding with lovenox- change to eliquis 10mg po BID x 7 days followed by 5mg po BID- duration for 3 months minimum (provoked from immobility) -Colonoscopy at a later time -Antibiotics for recent infectious colitis -Cardio following for SVT- to be on metoprolol 25mg po BID- f/u cardio localy -Blood pressure management as per primary team. From hematology perspective, ok for discharge. Can follow with me in 2 weeks ( lives a distance away may not, asked to then follow PCP) Rigoberto Chambers MD at 1305 RPT #:[id number] END OF [id number] 11:57:00 [facility] ([facility]) Cardiology Progress Note REPORT#:[id number] REPORT STATUS: Signed DATE:03/25/20 TIME: 1157 PATIENT: GILLIAN VERDUGO UNIT #: [id number] ROOM/BED: [place] [address] : 54 AGE: 65 SEX: F ATTEND: Gonzalo Morris DO ADM AUTHOR: Quyen Bernal * ALL edits or amendments must be made on the electronic/computer document * Subjective Patient reports: No: chest pain, shortness of breath. Objective General VS/I O: 24 hour I O ending at 0700: 03/25 0700 03/24 1900 Intake Total 570.00 Output Total Balance 570.00 Intake, IV 100.00 Intake, Oral 470 Vital Signs: Date Time Temp Pulse Resp B/P B/P Pulse O2 O2 Flow FiO2 Mean Ox Delivery Rate 03/25 1028 36.8 77 16 114/70 84.8 96 Room air 03/25 0737 36.5 69 16 115/68 83.9 96 Room air 03/25 0307 36.5 74 12 101/65 77.1 96 Room air 03/24 2250 36.7 74 12 124/73 90.2 95 Room air 03/24 1952 36.7 77 12 127/72 90.1 97 Room air 03/24 1555 84 18 110/67 81.2 95 Patient Weight Weight (lb): 191 Weight (oz): 12.83 Weight (kg): 87.000 Medications: Active Meds + DC'd Last 24 Hrs Apixaban 5 MG BID PO (DCD) Apixaban 10 MG BID PO (DCD) Metronidazole 500 MG TID PO (DCD) Apixaban 10 MG BID PO (DC) Sodium Chloride 500 ML PREOP ONCALL IV (DC) Pravastatin Sodium 20 MG BEDTIME PO (DCD) Venlafaxine HCl 75 MG BEDTIME PO (DCD) Acetaminophen 1,000 MG PREOP ONCALL PO (DCD) Lactated Ringer's 1,000 ML PREOP ONCALL IV (DCD) Lidocaine HCl 2 ML PREOP ONCALL LOCAL (DCD) Lidocaine HCl 2 ML PREOP ONCALL LOCAL (DCD) Sodium Chloride 500 ML PREOP ONCALL IV (DCD) Sodium Chloride 500 ML PREOP ONCALL IV (DCD) Sodium Chloride 1,000 ML PREOP ONCALL IV (DCD) Sodium Chloride 5 ML ASDIR PRN IV (DCD) Sodium Chloride 10 ML ASDIR PRN IV (DCD) Sodium Chloride 250 ML ASDIR PRN IV (DCD) Hydrochlorothiazide 12.5 MG DAILY PO (DCD) Lisinopril 10 MG DAILY PO (DCD) Ceftriaxone Sodium 1,000 MG Q24H IV (DCD) Sodium Chloride 10 ML Metronidazole/Sodium Chloride 100 ML Q8H IV (DC) Acetaminophen 650 MG Q4H PRN PRN PO (DCD) Docusate Sodium 100 MG BID PRN PRN PO (DCD) Ondansetron HCl 4 MG Q4H PRN PRN IV (DCD) Physical Exam General appearance: alert, awake, oriented Head/Eyes: normal conjunctiva/sclera Neck: no bruit/NL carotids, no JVD Cardiovascular: CV assessment: regular rate and rhythm, normal heart sounds Respiratory: clear to auscultation, no distress Abdomen: soft, non-tender Upper extremity: UE assessment: normal temperature Lower extremity: LE assessment: normal temperature Neuro/WOUND/OSTOMY CLINICAL NURSE SPECIALIST: alert, oriented X 3 Skin: dry, intact Results Findings/Data: Laboratory Tests 03/25 0350 Chemistry Sodium (134 - 147 mEq/L) 139 Potassium (3.4 - 5.0 mEq/L) 3.8 Chloride (100 - 108 mEq/L) 106 Carbon Dioxide (21 - 33 mEq/L) 28 Anion Gap (0 - 20) 9 BUN (7 - 18 mg/dL) 18 Creatinine (0.6 - 1.3 mg/dL) 0.9 Glomerular Filtr Rate (80 - 90) 62.6 L Glucose (70 - 110 mg/dL) 111 H Calcium (8.0 - 10.5 mg/dL) 8.2 Magnesium (1.8 - 2.4 mg/dL) 2.50 H Laboratory Tests 03/25 0350 Hematology WBC (4.5 - 11.0 x10 3/uL) 4.14 L RBC (3.54 - 5.02 x10 6/uL) 3.99 Hgb (11.0 - 15.0 g/dL) 12.5 Hct (33.0 - 45.0 %) 38.8 MCV (81.0 - 99.0 fL) 97.2 MCH (27.0 - 33.0 pg) 31.3 MCHC (33.0 - 37.0 g/dL) 32.2 L RDW (11.5 - 14.5 %) 12.9 Plt Count (150 - 400 x10 3/uL) 197 MPV (7.0 - 9.0 fL) 9.1 H Neut % (Auto) (56.0 - 77.0 %) 52.0 L Lymph % (Auto) (14.0 - 32.0 %) 30.2 [place] % (Auto) (4.8 - 9.0 %) 11.4 H Eos % (Auto) (0.3 - 3.7 %) 4.8 H Baso % (Auto) (0.0 - 2.0 %) 1.4 Neut # (Auto) (2.0 - 7.6 x10 3/uL) 2.15 Lymph # (Auto) (1.0 - 3.8 x10 3/uL) 1.25 [place] # (Auto) (0.1 - 0.8 x10 3/uL) 0.47 Eos # (Auto) (0.0 - 0.2 x10 3/uL) 0.20 Baso # (Auto) (0.0 - 0.2 x10 3/uL) 0.06 Abs Immat Gran (auto) (0.00 - 0.03 x10 3/uL) 0.01 Add Manual Diff NO Immature Gran % (0.0 - 2.0 %) 0.2 Nucleated RBC % (0 - 0 %) 0.0 Nucleated RBCs # (Man) (0.0 - 0.1 x10 3/uL) 0.00 Laboratory Tests 03/25 0350 Chemistry Magnesium (1.8 - 2.4 mg/dL) 2.50 H Diagnosis, Assessment Plan Free Text DxA P Notes Free Text DxA P Notes: PSVT -monitor on tele -start on metoprolol Acute pulmonary embolism -on high dose eliquis DVT Recent GI bleed Infectious colitis Hypertension -on lisinopril Hyperlipidemia -Lipids: TRIG 255, LDL 78, HDL 54 Plan: -check echo -check lipids -check telemetry and EKG in the AM -further after this 03/25/2020 -ECHO: has MVP and and moderate MR, lvef is good, RV function is good -had nsvt last night -ok to go home from the cardiac standpoint, but should dc home on metoprolol succinate 25mg daily -she has a medical underwriter in [facility], Dr. Whitney and she will fu with him at 1200 RPT #:[id number] END OF [id number] 11:57:00 [facility] Cardiology Progress Note REPORT#:[id number] REPORT STATUS: Signed DATE:03/25/20 TIME: 115 PATIENT: GILLIAN VERDUGO UNIT #: [id number] ROOM/BED: [place] [address] : 54 AGE: 65 SEX: F ATTEND: Gonzalo Morris DO ADM AUTHOR: Quyen Bernal * ALL edits or amendments must be made on the electronic/computer document * Quyen Reed 03/25/20 1157: Subjective Patient reports: No: chest pain, shortness of breath. Objective General VS/I O: 24 hour I O ending at 0700: 03/25 0700 03/24 1900 Intake Total 570.00 Output Total Balance 570.00 Intake, IV 100.00 Intake, Oral 470 Vital Signs: Date Time Temp Pulse Resp B/P B/P Pulse O2 O2 Flow FiO2 Mean Ox Delivery Rate 03/25 1028 36.8 77 16 114/70 84.8 96 Room air 03/25 0737 36.5 69 16 115/68 83.9 96 Room air 03/25 0307 36.5 74 12 101/65 77.1 96 Room air 03/24 2250 36.7 74 12 124/73 90.2 95 Room air 03/24 1952 36.7 77 12 127/72 90.1 97 Room air 03/24 1555 84 18 110/67 81.2 95 Patient Weight Weight (lb): 191 Weight (oz): 12.83 Weight (kg): 87.000 Medications: Active Meds + DC'd Last 24 Hrs Apixaban 5 MG BID PO (DCD) Apixaban 10 MG BID PO (DCD) Metronidazole 500 MG TID PO (DCD) Apixaban 10 MG BID PO (DC) Sodium Chloride 500 ML PREOP ONCALL IV (DC) Pravastatin Sodium 20 MG BEDTIME PO (DCD) Venlafaxine HCl 75 MG BEDTIME PO (DCD) Acetaminophen 1,000 MG PREOP ONCALL PO (DCD) Lactated Ringer's 1,000 ML PREOP ONCALL IV (DCD) Lidocaine HCl 2 ML PREOP ONCALL LOCAL (DCD) Lidocaine HCl 2 ML PREOP ONCALL LOCAL (DCD) Sodium Chloride 500 ML PREOP ONCALL IV (DCD) Sodium Chloride 500 ML PREOP ONCALL IV (DCD) Sodium Chloride 1,000 ML PREOP ONCALL IV (DCD) Sodium Chloride 5 ML ASDIR PRN IV (DCD) Sodium Chloride 10 ML ASDIR PRN IV (DCD) Sodium Chloride 250 ML ASDIR PRN IV (DCD) Hydrochlorothiazide 12.5 MG DAILY PO (DCD) Lisinopril 10 MG DAILY PO (DCD) Ceftriaxone Sodium 1,000 MG Q24H IV (DCD) Sodium Chloride 10 ML Metronidazole/Sodium Chloride 100 ML Q8H IV (DC) Acetaminophen 650 MG Q4H PRN PRN PO (DCD) Docusate Sodium 100 MG BID PRN PRN PO (DCD) Ondansetron HCl 4 MG Q4H PRN PRN IV (DCD) Physical Exam General appearance: alert, awake, oriented Head/Eyes: normal conjunctiva/sclera Neck: no bruit/NL carotids, no JVD Cardiovascular: CV assessment: regular rate and rhythm, normal heart sounds Respiratory: clear to auscultation, no distress Abdomen: soft, non-tender Upper extremity: UE assessment: normal temperature Lower extremity: LE assessment: normal temperature Neuro/WOUND/OSTOMY CLINICAL NURSE SPECIALIST: alert, oriented X 3 Skin: dry, intact Results Findings/Data: Laboratory Tests 03/25 0350 Chemistry Sodium (134 - 147 mEq/L) 139 Potassium (3.4 - 5.0 mEq/L) 3.8 Chloride (100 - 108 mEq/L) 106 Carbon Dioxide (21 - 33 mEq/L) 28 Anion Gap (0 - 20) 9 BUN (7 - 18 mg/dL) 18 Creatinine (0.6 - 1.3 mg/dL) 0.9 Glomerular Filtr Rate (80 - 90) 62.6 L Glucose (70 - 110 mg/dL) 111 H Calcium (8.0 - 10.5 mg/dL) 8.2 Magnesium (1.8 - 2.4 mg/dL) 2.50 H Laboratory Tests 03/25 0350 Hematology WBC (4.5 - 11.0 x10 3/uL) 4.14 L RBC (3.54 - 5.02 x10 6/uL) 3.99 Hgb (11.0 - 15.0 g/dL) 12.5 Hct (33.0 - 45.0 %) 38.8 MCV (81.0 - 99.0 fL) 97.2 MCH (27.0 - 33.0 pg) 31.3 MCHC (33.0 - 37.0 g/dL) 32.2 L RDW (11.5 - 14.5 %) 12.9 Plt Count (150 - 400 x10 3/uL) 197 MPV (7.0 - 9.0 fL) 9.1 H Neut % (Auto) (56.0 - 77.0 %) 52.0 L Lymph % (Auto) (14.0 - 32.0 %) 30.2 [place] % (Auto) (4.8 - 9.0 %) 11.4 H Eos % (Auto) (0.3 - 3.7 %) 4.8 H Baso % (Auto) (0.0 - 2.0 %) 1.4 Neut # (Auto) (2.0 - 7.6 x10 3/uL) 2.15 Lymph # (Auto) (1.0 - 3.8 x10 3/uL) 1.25 [place] # (Auto) (0.1 - 0.8 x10 3/uL) 0.47 Eos # (Auto) (0.0 - 0.2 x10 3/uL) 0.20 Baso # (Auto) (0.0 - 0.2 x10 3/uL) 0.06 Abs Immat Gran (auto) (0.00 - 0.03 x10 3/uL) 0.01 Add Manual Diff NO Immature Gran % (0.0 - 2.0 %) 0.2 Nucleated RBC % (0 - 0 %) 0.0 Nucleated RBCs # (Man) (0.0 - 0.1 x10 3/uL) 0.00 Laboratory Tests 03/25 0350 Chemistry Magnesium (1.8 - 2.4 mg/dL) 2.50 H Diagnosis, Assessment Plan Free Text DxA P Notes Free Text DxA P Notes: PSVT -monitor on tele -start on metoprolol Acute pulmonary embolism -on high dose eliquis DVT Recent GI bleed Infectious colitis Hypertension -on lisinopril Hyperlipidemia -Lipids: TRIG 255, LDL 78, HDL 54 Plan: -check echo -check lipids -check telemetry and EKG in the AM -further after this 03/25/2020 -ECHO: has MVP and and moderate MR, lvef is good, RV function is good -had nsvt last night -ok to go home from the cardiac standpoint, but should dc home on metoprolol succinate 25mg daily -[facility] Ali,Max 04/03/20 1418: Attestations Physician Attestation Reviewed findings plan: Patient seen and examined. The clinical and laboratory data was reviewed. The evaluation and management plan was discussed with the PRETZEL PACKER. Medications and vital signs were reviewed. Agree with assessment above at 1200 RPT #:[id number] END OF [id number] 11:57:00 [facility] ([facility] Cardiology Progress Note REPORT#:[id number] REPORT STATUS: Signed DATE:03/25/20 TIME: 1156 PATIENT: GILLIAN VERDUGO UNIT #: [id number] ROOM/BED: [place] [id number] : 54 AGE: 65 SEX: F ATTEND: Gonzalo Morris DO ADM AUTHOR: Quyen Bernal * ALL edits or amendments must be made on the electronic/computer document * Quyen Reed 03/25/20 1157: Subjective Patient reports: No: chest pain, shortness of breath. Objective General VS/I O: 24 hour I O ending at 0700: 03/25 0700 03/24 1900 Intake Total 570.00 Output Total Balance 570.00 Intake, IV 100.00 Intake, Oral 470 Vital Signs: Date Time Temp Pulse Resp B/P B/P Pulse O2 O2 Flow FiO2 Mean Ox Delivery Rate 03/25 1028 36.8 77 16 114/70 84.8 96 Room air 03/25 0737 36.5 69 16 115/68 83.9 96 Room air 03/25 0307 36.5 74 12 101/65 77.1 96 Room air 03/24 2250 36.7 74 12 124/73 90.2 95 Room air 03/24 1952 36.7 77 12 127/72 90.1 97 Room air 03/24 1555 84 18 110/67 81.2 95 Patient Weight Weight (lb): 191 Weight (oz): 12.83 Weight (kg): 87.000 Medications: Active Meds + DC'd Last 24 Hrs Apixaban 5 MG BID PO (DCD) Apixaban 10 MG BID PO (DCD) Metronidazole 500 MG TID PO (DCD) Apixaban 10 MG BID PO (DC) Sodium Chloride 500 ML PREOP ONCALL IV (DC) Pravastatin Sodium 20 MG BEDTIME PO (DCD) Venlafaxine HCl 75 MG BEDTIME PO (DCD) Acetaminophen 1,000 MG PREOP ONCALL PO (DCD) Lactated Ringer's 1,000 ML PREOP ONCALL IV (DCD) Lidocaine HCl 2 ML PREOP ONCALL LOCAL (DCD) Lidocaine HCl 2 ML PREOP ONCALL LOCAL (DCD) Sodium Chloride 500 ML PREOP ONCALL IV (DCD) Sodium Chloride 500 ML PREOP ONCALL IV (DCD) Sodium Chloride 1,000 ML PREOP ONCALL IV (DCD) Sodium Chloride 5 ML ASDIR PRN IV (DCD) Sodium Chloride 10 ML ASDIR PRN IV (DCD) Sodium Chloride 250 ML ASDIR PRN IV (DCD) Hydrochlorothiazide 12.5 MG DAILY PO (DCD) Lisinopril 10 MG DAILY PO (DCD) Ceftriaxone Sodium 1,000 MG Q24H IV (DCD) Sodium Chloride 10 ML Metronidazole/Sodium Chloride 100 ML Q8H IV (DC) Acetaminophen 650 MG Q4H PRN PRN PO (DCD) Docusate Sodium 100 MG BID PRN PRN PO (DCD) Ondansetron HCl 4 MG Q4H PRN PRN IV (DCD) Physical Exam General appearance: alert, awake, oriented Head/Eyes: normal conjunctiva/sclera Neck: no bruit/NL carotids, no JVD Cardiovascular: CV assessment: regular rate and rhythm, normal heart sounds Respiratory: clear to auscultation, no distress Abdomen: soft, non-tender Upper extremity: UE assessment: normal temperature Lower extremity: LE assessment: normal temperature Neuro/WOUND/OSTOMY CLINICAL NURSE SPECIALIST: alert, oriented X 3 Skin: dry, intact Results Findings/Data: Laboratory Tests 03/25 0350 Chemistry Sodium (134 - 147 mEq/L) 139 Potassium (3.4 - 5.0 mEq/L) 3.8 Chloride (100 - 108 mEq/L) 106 Carbon Dioxide (21 - 33 mEq/L) 28 Anion Gap (0 - 20) 9 BUN (7 - 18 mg/dL) 18 Creatinine (0.6 - 1.3 mg/dL) 0.9 Glomerular Filtr Rate (80 - 90) 62.6 L Glucose (70 - 110 mg/dL) 111 H Calcium (8.0 - 10.5 mg/dL) 8.2 Magnesium (1.8 - 2.4 mg/dL) 2.50 H Laboratory Tests 03/25 0350 Hematology WBC (4.5 - 11.0 x10 3/uL) 4.14 L RBC (3.54 - 5.02 x10 6/uL) 3.99 Hgb (11.0 - 15.0 g/dL) 12.5 Hct (33.0 - 45.0 %) 38.8 MCV (81.0 - 99.0 fL) 97.2 MCH (27.0 - 33.0 pg) 31.3 MCHC (33.0 - 37.0 g/dL) 32.2 L RDW (11.5 - 14.5 %) 12.9 Plt Count (150 - 400 x10 3/uL) 197 MPV (7.0 - 9.0 fL) 9.1 H Neut % (Auto) (56.0 - 77.0 %) 52.0 L Lymph % (Auto) (14.0 - 32.0 %) 30.2 [place] % (Auto) (4.8 - 9.0 %) 11.4 H Eos % (Auto) (0.3 - 3.7 %) 4.8 H Baso % (Auto) (0.0 - 2.0 %) 1.4 Neut # (Auto) (2.0 - 7.6 x10 3/uL) 2.15 Lymph # (Auto) (1.0 - 3.8 x10 3/uL) 1.25 [place] # (Auto) (0.1 - 0.8 x10 3/uL) 0.47 Eos # (Auto) (0.0 - 0.2 x10 3/uL) 0.20 Baso # (Auto) (0.0 - 0.2 x10 3/uL) 0.06 Abs Immat Gran (auto) (0.00 - 0.03 x10 3/uL) 0.01 Add Manual Diff NO Immature Gran % (0.0 - 2.0 %) 0.2 Nucleated RBC % (0 - 0 %) 0.0 Nucleated RBCs # (Man) (0.0 - 0.1 x10 3/uL) 0.00 Laboratory Tests 03/25 0350 Chemistry Magnesium (1.8 - 2.4 mg/dL) 2.50 H Diagnosis, Assessment Plan Free Text DxA P Notes Free Text DxA P Notes: PSVT -monitor on tele -start on metoprolol Acute pulmonary embolism -on high dose eliquis DVT Recent GI bleed Infectious colitis Hypertension -on lisinopril Hyperlipidemia -Lipids: TRIG 255, LDL 78, HDL 54 Plan: -check echo -check lipids -check telemetry and EKG in the AM -further after this 03/25/2020 -ECHO: has MVP and and moderate MR, lvef is good, RV function is good -had nsvt last night -ok to go home from the cardiac standpoint, but should dc home on metoprolol succinate 25mg daily -[facility] will fu [facility] him Ali,Max 04/03/20 1418: Attestations Physician Attestation Reviewed findings plan: Patient seen and examined. The clinical and laboratory data was reviewed. The evaluation and management plan was discussed with the PRETZEL PACKER. Medications and vital signs were reviewed. Agree with assessment above at 1200 RPT #:[id number] END OF [id number] 11:57:00 [facility] ([facility]) Cardiology Progress Note REPORT#:[id number] REPORT STATUS: Signed DATE:03/25/20 TIME: 1157 PATIENT: GILLIAN VERDUGO UNIT #: [id number] ROOM/BED: [place] [id number] : 54 AGE: 65 SEX: F ATTEND: Gonzalo Morris DO ADM AUTHOR: Quyen Bernal * ALL edits or amendments must be made on the electronic/computer document * Quyen Reed 03/25/20 1157: Subjective Patient reports: No: chest pain, shortness of breath. Objective General VS/I O: 24 hour I O ending at 0700: 03/25 0700 03/24 1900 Intake Total 570.00 Output Total Balance 570.00 Intake, IV 100.00 Intake, Oral 470 Vital Signs: Date Time Temp Pulse Resp B/P B/P Pulse O2 O2 Flow FiO2 Mean Ox Delivery Rate 03/25 1028 36.8 77 16 114/70 84.8 96 Room air 03/25 0737 36.5 69 16 115/68 83.9 96 Room air 03/25 0307 36.5 74 12 101/65 77.1 96 Room air 03/24 2250 36.7 74 12 124/73 90.2 95 Room air 03/24 1952 36.7 77 12 127/72 90.1 97 Room air 03/24 1555 84 18 110/67 81.2 95 Patient Weight Weight (lb): 191 Weight (oz): 12.83 Weight (kg): 87.000 Medications: Active Meds + DC'd Last 24 Hrs Apixaban 5 MG BID PO (DCD) Apixaban 10 MG BID PO (DCD) Metronidazole 500 MG TID PO (DCD) Apixaban 10 MG BID PO (DC) Sodium Chloride 500 ML PREOP ONCALL IV (DC) Pravastatin Sodium 20 MG BEDTIME PO (DCD) Venlafaxine HCl 75 MG BEDTIME PO (DCD) Acetaminophen 1,000 MG PREOP ONCALL PO (DCD) Lactated Ringer's 1,000 ML PREOP ONCALL IV (DCD) Lidocaine HCl 2 ML PREOP ONCALL LOCAL (DCD) Lidocaine HCl 2 ML PREOP ONCALL LOCAL (DCD) Sodium Chloride 500 ML PREOP ONCALL IV (DCD) Sodium Chloride 500 ML PREOP ONCALL IV (DCD) Sodium Chloride 1,000 ML PREOP ONCALL IV (DCD) Sodium Chloride 5 ML ASDIR PRN IV (DCD) Sodium Chloride 10 ML ASDIR PRN IV (DCD) Sodium Chloride 250 ML ASDIR PRN IV (DCD) Hydrochlorothiazide 12.5 MG DAILY PO (DCD) Lisinopril 10 MG DAILY PO (DCD) Ceftriaxone Sodium 1,000 MG Q24H IV (DCD) Sodium Chloride 10 ML Metronidazole/Sodium Chloride 100 ML Q8H IV (DC) Acetaminophen 650 MG Q4H PRN PRN PO (DCD) Docusate Sodium 100 MG BID PRN PRN PO (DCD) Ondansetron HCl 4 MG Q4H PRN PRN IV (DCD) Physical Exam General appearance: alert, awake, oriented Head/Eyes: normal conjunctiva/sclera Neck: no bruit/NL carotids, no JVD Cardiovascular: CV assessment: regular rate and rhythm, normal heart sounds Respiratory: clear to auscultation, no distress Abdomen: soft, non-tender Upper extremity: UE assessment: normal temperature Lower extremity: LE assessment: normal temperature Neuro/WOUND/OSTOMY CLINICAL NURSE SPECIALIST: alert, oriented X 3 Skin: dry, intact Results Findings/Data: Laboratory Tests 03/25 0350 Chemistry Sodium (134 - 147 mEq/L) 139 Potassium (3.4 - 5.0 mEq/L) 3.8 Chloride (100 - 108 mEq/L) 106 Carbon Dioxide (21 - 33 mEq/L) 28 Anion Gap (0 - 20) 9 BUN (7 - 18 mg/dL) 18 Creatinine (0.6 - 1.3 mg/dL) 0.9 Glomerular Filtr Rate (80 - 90) 62.6 L Glucose (70 - 110 mg/dL) 111 H Calcium (8.0 - 10.5 mg/dL) 8.2 Magnesium (1.8 - 2.4 mg/dL) 2.50 H Laboratory Tests 03/25 0350 Hematology WBC (4.5 - 11.0 x10 3/uL) 4.14 L RBC (3.54 - 5.02 x10 6/uL) 3.99 Hgb (11.0 - 15.0 g/dL) 12.5 Hct (33.0 - 45.0 %) 38.8 MCV (81.0 - 99.0 fL) 97.2 MCH (27.0 - 33.0 pg) 31.3 MCHC (33.0 - 37.0 g/dL) 32.2 L RDW (11.5 - 14.5 %) 12.9 Plt Count (150 - 400 x10 3/uL) 197 MPV (7.0 - 9.0 fL) 9.1 H Neut % (Auto) (56.0 - 77.0 %) 52.0 L Lymph % (Auto) (14.0 - 32.0 %) 30.2 [place] % (Auto) (4.8 - 9.0 %) 11.4 H Eos % (Auto) (0.3 - 3.7 %) 4.8 H Baso % (Auto) (0.0 - 2.0 %) 1.4 Neut # (Auto) (2.0 - 7.6 x10 3/uL) 2.15 Lymph # (Auto) (1.0 - 3.8 x10 3/uL) 1.25 [place] # (Auto) (0.1 - 0.8 x10 3/uL) 0.47 Eos # (Auto) (0.0 - 0.2 x10 3/uL) 0.20 Baso # (Auto) (0.0 - 0.2 x10 3/uL) 0.06 Abs Immat Gran (auto) (0.00 - 0.03 x10 3/uL) 0.01 Add Manual Diff NO Immature Gran % (0.0 - 2.0 %) 0.2 Nucleated RBC % (0 - 0 %) 0.0 Nucleated RBCs # (Man) (0.0 - 0.1 x10 3/uL) 0.00 Laboratory Tests 03/25 0350 Chemistry Magnesium (1.8 - 2.4 mg/dL) 2.50 H Diagnosis, Assessment Plan Free Text DxA P Notes Free Text DxA P Notes: PSVT -monitor on tele -start on metoprolol Acute pulmonary embolism -on high dose eliquis DVT Recent GI bleed Infectious colitis Hypertension -on lisinopril Hyperlipidemia -Lipids: TRIG 255, LDL 78, HDL 54 Plan: -check echo -check lipids -check telemetry and EKG in the AM -further after this 03/25/2020 -ECHO: has MVP and and moderate MR, lvef is good, RV function is good -had nsvt last night -ok to go home from the cardiac standpoint, but should dc home on metoprolol succinate 25mg daily -she [facility] medical [facility], Dr. Whitney and she will fu with him Max Erickson 04/03/20 1418: Attestations Physician Attestation Reviewed findings plan: Patient seen and examined. The clinical and laboratory data was reviewed. The evaluation and management plan was discussed with the PRETZEL PACKER. Medications and vital signs were reviewed. Agree with assessment above at 1200 at 1421 RPT #:[id number] END OF [id number] 09:34:00 [facility]) Pulmonology Progress Note REPORT#:[id number] REPORT STATUS: Signed DATE:03/25/20 TIME: 933 PATIENT: GILLIAN VERDUGO UNIT #: [id number] ROOM/BED: [place] [address] : 54 AGE: 65 SEX: F ATTEND: Gonzalo Morris DO ADM AUTHOR: Black Garcia MD * ALL edits or amendments must be made on the electronic/computer document * Subjective Chief Complaint: dyspnea Comments: Feels better Breathing fine w/o cp, palp Denies best, n, v No overt bleeding Objective Physical Exam VS/I O: Laboratory Tests: 03/25 0350 Chemistry Sodium (134 - 147 mEq/L) 139 Potassium (3.4 - 5.0 mEq/L) 3.8 Chloride (100 - 108 mEq/L) 106 Carbon Dioxide (21 - 33 mEq/L) 28 Anion Gap (0 - 20) 9 BUN (7 - 18 mg/dL) 18 Creatinine (0.6 - 1.3 mg/dL) 0.9 Glomerular Filtr Rate (80 - 90) 62.6 L Glucose (70 - 110 mg/dL) 111 H Calcium (8.0 - 10.5 mg/dL) 8.2 Magnesium (1.8 - 2.4 mg/dL) 2.50 H Hematology WBC (4.5 - 11.0 x10 3/uL) 4.14 L RBC (3.54 - 5.02 x10 6/uL) 3.99 Hgb (11.0 - 15.0 g/dL) 12.5 Hct (33.0 - 45.0 %) 38.8 MCV (81.0 - 99.0 fL) 97.2 MCH (27.0 - 33.0 pg) 31.3 MCHC (33.0 - 37.0 g/dL) 32.2 L RDW (11.5 - 14.5 %) 12.9 Plt Count (150 - 400 x10 3/uL) 197 MPV (7.0 - 9.0 fL) 9.1 H Neut % (Auto) (56.0 - 77.0 %) 52.0 L Lymph % (Auto) (14.0 - 32.0 %) 30.2 [place] % (Auto) (4.8 - 9.0 %) 11.4 H Eos % (Auto) (0.3 - 3.7 %) 4.8 H Baso % (Auto) (0.0 - 2.0 %) 1.4 Neut # (Auto) (2.0 - 7.6 x10 3/uL) 2.15 Lymph # (Auto) (1.0 - 3.8 x10 3/uL) 1.25 [place] # (Auto) (0.1 - 0.8 x10 3/uL) 0.47 Eos # (Auto) (0.0 - 0.2 x10 3/uL) 0.20 Baso # (Auto) (0.0 - 0.2 x10 3/uL) 0.06 Abs Immat Gran (auto) (0.00 - 0.03 x10 3/uL) 0.01 Add Manual Diff NO Immature Gran % (0.0 - 2.0 %) 0.2 Nucleated RBC % (0 - 0 %) 0.0 Nucleated RBCs # (Man) (0.0 - 0.1 x10 3/uL) 0.00 Current Medications Sig/Joel Start time Last Medication Dose Route Stop Time Status Admin Apixaban 5 MG BID 03/31 900 AC PO 04/30 0859 Apixaban 10 MG BID 03/25 2100 CKD PO 03/30 210 Metronidazole 500 MG TID 03/24 2100 AC 03/25 PO 03/26 210 0808 Apixaban 10 MG BID 03/24 1200 DC 03/25 PO 04/23 1159 0807 Sodium Chloride 500 ML PREOP ONCALL 03/24 0500 DC IV 03/24 2359 Enoxaparin Sodium 90 MG Q12HR 03/23 2100 DC SUBQ 04/22 2059 Pravastatin Sodium 20 MG BEDTIME 03/23 2100 AC 03/24 PO 04/22 Venlafaxine HCl 75 MG BEDTIME 03/23 2100 AC 03/24 PO 04/22 Acetaminophen 1,000 MG PREOP ONCALL 03/23 1730 CKD PO 04/22 2359 Lactated Ringer's 1,000 ML PREOP ONCALL 03/23 1730 AC IV 04/22 2359 Lidocaine HCl 2 ML PREOP ONCALL 03/23 1730 AC LOCAL 04/22 2359 Lidocaine HCl 2 ML PREOP ONCALL 03/23 1730 AC LOCAL 04/22 2359 Sodium Chloride 500 ML PREOP ONCALL 03/23 1730 AC IV 04/22 2359 Sodium Chloride 500 ML PREOP ONCALL 03/23 1730 AC IV 04/22 2359 Sodium Chloride 1,000 ML PREOP ONCALL 03/23 1730 AC IV 04/22 2359 Sodium Chloride 5 ML ASDIR PRN 03/23 1730 AC IV 04/22 1729 Sodium Chloride 10 ML ASDIR PRN 03/23 1730 AC IV 04/22 1729 Sodium Chloride 250 ML ASDIR PRN 03/23 1730 AC IV 04/22 1729 Hydrochlorothiazide 12.5 MG DAILY 03/23 09 AC 03/25 PO 04/22 0859 0807 Lisinopril 10 MG DAILY 03/23 09 AC 03/25 PO 04/22 0859 0808 Ceftriaxone Sodium 1,000 MG Q24H 03/23 0200 AC 03/25 Sodium Chloride 10 ML IV 03/27 0159 0344 Metronidazole/Sodium 100 ML Q8H 03/23 0200 DC 03/24 Chloride IV 03/27 0159 1012 Acetaminophen 650 MG Q4H PRN PRN 03/23 0015 AC PO 04/22 001 Docusate Sodium 100 MG BID PRN PRN 03/23 0015 AC PO 04/22 001 Ondansetron HCl 4 MG Q4H PRN PRN 03/23 0015 AC IV 04/22 14 Last Documented: Result Date Time Pulse Ox 96 03/25 737 B/P 115/68 03/25 737 B/P Mean 83.9 03/25 737 O2 Delivery Room air 03/25 737 Temp 97.7 03/25 737 Pulse 69 03/25 737 Resp 16 03/25 737 24 hour I O ending at 0700: 03/25 0700 03/24 1900 Intake Total 570.00 Output Total Balance 570.00 Intake, IV 100.00 Intake, Oral 470 Patient Weight Weight (lb): 191 Weight (oz): 12.83 Weight (kg): 87.000 General appearance: alert, no acute distress, pleasant, conversational Head/eyes: atraumatic, normocephalic ENT: ENT: moist mucosal membranes, normal pharynx Neck: non-tender, supple/no meningismus Cardiovascular: normal S1/S2, regular rate rhythm Respiratory/chest: clear to auscultation, symmetric expansion Abdomen: soft, non-tender Extremities: no cyanosis, no edema Musculoskeletal: normal inspection, no muscle spasm Neuro/WOUND/OSTOMY CLINICAL NURSE SPECIALIST: alert, oriented X 3 Skin: warm, dry Diagnosis, Assessment Plan Free Text A P: IMPRESSION: 1. Venous thromboembolic disease, acute first episode, new onset, provoking factors of GI bleeding in hospital stay, nonsmoker, possible family history as described above. 2. Colitis. Gastrointestinal bleed being evaluated. If the bleeding continues to be a problem we may have to revisit the issue of anticoagulation. 3. No history of lung disease. RECOMMENDATIONS: 1. Continue anticoagulation with subcutaneous transition to oral anticoagulation. 2. Follow hemoglobin and lab work. 3. I spoke with the patient regarding need for followup and possibly hypercoagulable workup at some point after her acute episode is over to reassess need for long-term anticoagulation, especially given some family history of the same. 6.29 CV and RESP status stable OK to transition to Xarelto or Eliquis per HemOnc Spoke with pt and daughter (nurse) by speaer phone. Advised f/u with pulm and HemOnc docs close to where she lives or with doc here - gave pt my office info 6.30 Doing well, good recovery OK to DC home OP f/u and safety precautions advised at 0936 RPT #:[id number] END OF [id number] 09:30:00 [facility] ([facility]) Hospitalist Progress Note REPORT#:[id number] REPORT STATUS: Signed DATE:03/25/20 TIME: 929 PATIENT: GILLIAN VERDUGO UNIT #: [id number] ROOM/BED: 5531-1 : 54 AGE: 65 SEX: F ATTEND: Gonzalo Morris DO ADM AUTHOR: Silvio Murrieta MD * ALL edits or amendments must be made on the electronic/computer document * Subjective Chief Complaint: no bleeding. no cp. no sob. Objective General VS/I O: Vital Signs: Date Time Temp Pulse Resp B/P B/P Pulse O2 O2 Flow FiO2 Mean Ox Delivery Rate 03/25 0737 97.7 69 16 115/68 83.9 96 Room air 03/25 0307 97.7 74 12 101/65 77.1 96 Room air 03/24 2250 98.1 74 12 124/73 90.2 95 Room air 03/24 1952 98.1 77 12 127/72 90.1 97 Room air 03/24 1555 84 18 110/67 81.2 95 03/24 1038 97.9 68 18 132/82 98.9 95 24 hour I O ending at 0700: 03/25 0700 03/24 1900 Intake Total 570.00 Output Total Balance 570.00 Intake, IV 100.00 Intake, Oral 470 Patient Weight Weight (lb): 191 Weight (oz): 12.83 Weight (kg): 87.000 Physical Exam General appearance: alert, awake, oriented Head/Eyes: clear cornea, EOMI ENT: moist mucosal membranes Neck: non-tender, supple/no meningismus Cardiovascular: normal heart sounds, regular rate rhythm Respiratory: aerating well, clear to auscultation, symmetric expansion Abdomen: non-tender, normal bowel sounds, soft Extremities: L arm thrombophembitis, R LE swelling Neuro/WOUND/OSTOMY CLINICAL NURSE SPECIALIST: alert, oriented X 3 Skin: dry, intact Results Radiology data: Laboratory Tests 03/25/20 0350: [Embedded Image Not Available] 03/24/20 0849: [Embedded Image Not Available] Current Medications Sig/Joel Start time Last Medication Dose Route Stop Time Status Admin Apixaban 5 MG BID 03/31 09 AC PO 04/30 0859 Apixaban 10 MG BID 03/25 2100 CKD PO 03/30 210 Metronidazole 500 MG TID 03/24 2100 AC 03/25 PO 03/26 210 0808 Apixaban 10 MG BID 03/24 1200 DC 03/25 PO 04/23 1159 0807 Sodium Chloride 500 ML PREOP ONCALL 03/24 0500 DC IV 03/24 2359 Enoxaparin Sodium 90 MG Q12HR 03/23 2100 DC SUBQ 04/22 205 Pravastatin Sodium 20 MG BEDTIME 03/23 2100 AC 03/24 PO 04/22 2059 210 Venlafaxine HCl 75 MG BEDTIME 03/23 2100 AC 03/24 PO 04/22 Acetaminophen 1,000 MG PREOP ONCALL 03/23 1730 CKD PO 04/22 2359 Lactated Ringer's 1,000 ML PREOP ONCALL 03/23 1730 AC IV 04/22 2359 Lidocaine HCl 2 ML PREOP ONCALL 03/23 1730 AC LOCAL 04/22 2359 Lidocaine HCl 2 ML PREOP ONCALL 03/23 1730 AC LOCAL 04/22 2359 Sodium Chloride 500 ML PREOP ONCALL 03/23 1730 AC IV 04/22 2359 Sodium Chloride 500 ML PREOP ONCALL 03/23 1730 AC IV 04/22 2359 Sodium Chloride 1,000 ML PREOP ONCALL 03/23 1730 AC IV 04/22 2359 Sodium Chloride 5 ML ASDIR PRN 03/23 1730 AC IV 04/22 1729 Sodium Chloride 10 ML ASDIR PRN 03/23 1730 AC IV 04/22 1729 Sodium Chloride 250 ML ASDIR PRN 03/23 1730 AC IV 04/22 1729 Hydrochlorothiazide 12.5 MG DAILY 03/23 0900 AC 03/25 PO 04/22 0859 0807 Lisinopril 10 MG DAILY 03/23 0900 AC 03/25 PO 04/22 0859 0808 Ceftriaxone Sodium 1,000 MG Q24H 03/23 020 AC 03/25 Sodium Chloride 10 ML IV 03/27 159 0344 Metronidazole/Sodium 100 ML Q8H 03/23 020 DC 03/24 Chloride IV 03/27 015 1012 Acetaminophen 650 MG Q4H PRN PRN 03/23 001 AC PO 04/22 001 Docusate Sodium 100 MG BID PRN PRN 03/23 001 AC PO 04/22 001 Ondansetron HCl 4 MG Q4H PRN PRN 03/23 15 AC IV 04/22 14 Laboratory Tests: 03/25 0350 Chemistry Sodium (134 - 147 mEq/L) 139 Potassium (3.4 - 5.0 mEq/L) 3.8 Chloride (100 - 108 mEq/L) 106 Carbon Dioxide (21 - 33 mEq/L) 28 Anion Gap (0 - 20) 9 BUN (7 - 18 mg/dL) 18 Creatinine (0.6 - 1.3 mg/dL) 0.9 Glomerular Filtr Rate (80 - 90) 62.6 L Glucose (70 - 110 mg/dL) 111 H Calcium (8.0 - 10.5 mg/dL) 8.2 Magnesium (1.8 - 2.4 mg/dL) 2.50 H Hematology WBC (4.5 - 11.0 x10 3/uL) 4.14 L RBC (3.54 - 5.02 x10 6/uL) 3.99 Hgb (11.0 - 15.0 g/dL) 12.5 Hct (33.0 - 45.0 %) 38.8 MCV (81.0 - 99.0 fL) 97.2 MCH (27.0 - 33.0 pg) 31.3 MCHC (33.0 - 37.0 g/dL) 32.2 L RDW (11.5 - 14.5 %) 12.9 Plt Count (150 - 400 x10 3/uL) 197 MPV (7.0 - 9.0 fL) 9.1 H Neut % (Auto) (56.0 - 77.0 %) 52.0 L Lymph % (Auto) (14.0 - 32.0 %) 30.2 [place] % (Auto) (4.8 - 9.0 %) 11.4 H Eos % (Auto) (0.3 - 3.7 %) 4.8 H Baso % (Auto) (0.0 - 2.0 %) 1.4 Neut # (Auto) (2.0 - 7.6 x10 3/uL) 2.15 Lymph # (Auto) (1.0 - 3.8 x10 3/uL) 1.25 [place] # (Auto) (0.1 - 0.8 x10 3/uL) 0.47 Eos # (Auto) (0.0 - 0.2 x10 3/uL) 0.20 Baso # (Auto) (0.0 - 0.2 x10 3/uL) 0.06 Abs Immat Gran (auto) (0.00 - 0.03 x10 3/uL) 0.01 Add Manual Diff NO Immature Gran % (0.0 - 2.0 %) 0.2 Nucleated RBC % (0 - 0 %) 0.0 Nucleated RBCs # (Man) (0.0 - 0.1 x10 3/uL) 0.00 Diagnosis, Assessment Plan Free Text DxA P Notes Free text DxA P notes: Assessments -Acute pulmonary embolism -DVT -Superficial thrombophlebitis -Recent GI bleed -Infectious colitis -Depression -Hypertension -Hyperlipidemia -SVT Plan -Received Lovenox x1 in freestanding ED, continue for now, no evidence of active bleeding currently -Continue antibiotics, Rocephin and Flagyl -Gastroenterology, hematology, pulmonology evaluation -Continue indicated home medications -Regular diet -Monitor on telemetry -DVT prophylaxis: Full dose Lovenox 03/24 - Colonscopy cancelled because of the acute PE/DVT. plan is for colon in 6 months. Start Eliquis today since no more bleeding. dc in AM if h/h stable and no bleeding. 03/25 - cleared by all for dc home today on eliquis. f/u with all consultants. h/ h stable Quality Current Medications Current medication review: I attest that the foregoing medication list in the medical record is true, accurate, and complete to the best of my knowledge. at 0931 RPT #:[id number] END OF [id number] 07:[id number] [address] PATIENT NAME: GILLIAN VERDUGO ADMIT DATE: 03/22/20 ACCOUNT NO: [id number] ROOM NO: [id number] AGE: 65 REPORT TYPE: eECHOCARDIOGRAM REPORT SEX: F ADMITTING PHYSICIAN:Gonzalo Morris DO ATTENDING PHYSICIAN:Gonzalo Morris DO Exam Date: 03/24/2020 16:57:00 Exam Type: Transthoracic Echocardiogram Indication: SVT BP: 154/80 HR: 80 Measurements Name Value Normal Range RVIDd (AP) 2D 2.13 cm - IVSd (2D) 0.69 cm (0.6 - 1.1) LVPWd (2D) 1.09 cm (0.6 - 1.1) LVIDd (2D) 5.62 cm (3.5 - 5.6) LVIDs (2D) 3.08 cm (2.1 - 4) LV FS (2D) 45.11 % - EF Teichholz (2D) 75.82 % (50 - 90) Ao root diameter (2D) 3.41 cm (2 - 3.7) Name Value Normal Range LA ESV SP 4CH (A/L) 73.53 ml - LA ESV SP 4CH (MOD) 69.84 ml - LV EDV SP 4CH (MOD) 122.48 ml - LV ESV SP 4CH (MOD) 48.66 ml - EF SP 4CH (MOD) 60.27 % - LV EDV SP 2CH (MOD) 76.24 ml - LV ESV SP 2CH (MOD) 20.68 ml - EF SP 2CH (MOD) 72.87 % - LV EDV BP 95.13 ml - LV ESV BP 31.33 ml - BP EF (MOD) 67.06 % - Name Value Normal Range MV E-wave Vmax 1.02 m/sec - MV deceleration time 178.43 msec - MV A-wave Vmax 0.94 m/sec - MV E:A ratio 1.09 ratio - Name Value Normal Range AV Vmax 1.55 m/sec - AV VTI 27.85 cm - AV peak gradient 9.58 mmHg - PATIENT NAME: GILLIAN VERDUGO AV mean gradient 4.85 mmHg - LVOT diameter 1.61 cm (1.8 - 2.2) LVOT Vmax 1.13 m/sec - LVOT VTI 21.59 cm - LVOT peak gradient 5.11 mmHg - LVOT mean gradient 2.38 mmHg - SV LVOT 44 ml - MARGARITA (continuity Vmax) 1.49 cm2 - MARGARITA (continuity VTI) 1.58 cm2 - Name Value Normal Range TV E-wave Vmax 0.69 m/sec - TR Vmax 2.7 m/sec - TR peak gradient 29.7 mmHg - RAP 10 mmHg - RVSP 39.7 mmHg (15 - 30) Name Value Normal Range PV Vmax 1.13 m/sec - PV peak gradient 5.07 mmHg - RVOT Vmax 0.63 m/sec - RVOT peak gradient 1.61 mmHg - Findings Study Quality: This is a technically adequate examination. Left Ventricle: The left ventricular chamber size is normal. There is no left ventricular hypertrophy observed. Global left ventricular wall motion and contractility are within normal limits. The estimated ejection fraction is 55-60%. Right Ventricle: The right ventricular chamber size and systolic function are within normal limits. Right Atrium: The right atrium is normal in size. Aortic Valve: The aortic valve appears normal in structure and function. Mitral Valve: There is mild mitral valve prolapse. Tricuspid Valve: The tricuspid valve leaflets are morphologically normal. There is mild tricuspid regurgitation. The RVSP is 39.7 mmHg. No pulmonary hypertension is noted. Pulmonic Valve: The pulmonic valve appears normal in structure and function. PATIENT NAME: GILLIAN VERDUGO Pericardium: There is no pericardial effusion. Aorta: The aortic root appears normal. Pulmonary Artery: The main pulmonary artery appears normal. Conclusions 1. The estimated ejection fraction is 55-60%. 2. The left atrial chamber size is mildly dilated. 3. The right ventricular chamber size and systolic function are within normal limits. 4. The right atrium is normal in size. 5. The aortic valve appears normal in structure and function. 6. There is mitral valve prolapse. 7. There is a moderate of mitral regurgitation. 8. There is mild tricuspid regurgitation. 9. The RVSP is 39.7 mmHg. 10. The pulmonic valve appears normal in structure and function. at 0801 PATIENT NAME: GILLIAN VERDUGO 19:32:00 [facility] ([facility]) Arun/Oncology Progress Note REPORT#:[id number] REPORT STATUS: Signed DATE:03/24/20 TIME: 1931 PATIENT: GILLIAN VERDUGO UNIT #: [id number] ROOM/BED: [place] [address] : 54 AGE: 65 SEX: F ATTEND: Gonzalo Morris DO ADM AUTHOR: Rigoberto Chambers MD * ALL edits or amendments must be made on the electronic/computer document * Subjective Chief Complaint: Colonoscopy cancelled for now secondary to PE- transitioned to eliquis, had bout of SVT earlier Objective Physical Exam VS: Vital Signs Date Temp Pulse Resp B/P B/P Mean Pulse Ox FiO2 03/23-03/24 36.3-36.8 68-89 16-18 110-133/67-85 81.2-98.9 95-97 Last Documented: Result Date Time Pulse Ox 95 03/24 1555 B/P 110/67 03/24 1555 B/P Mean 81.2 03/24 1555 Pulse 84 03/24 1555 Resp 18 03/24 1555 Temp 36.6 03/24 1038 O2 Delivery Room air 03/24 0341 General appearance: alert, awake, oriented HEENT: anicteric, atraumatic Neck: supple/no meningismus, no JVD Cardiovascular: regular rate and rhythm Respiratory: clear to auscultation Abdomen: non-tender, normal bowel sounds, soft, no distention Extremities: moves all, no edema Musculoskeletal: full range of motion Neuro/WOUND/OSTOMY CLINICAL NURSE SPECIALIST: alert, oriented X 3 skin dry, intact Psychiatry: normal affect Current Medications Medications: Active Meds + DC'd Last 24 Hrs Metronidazole 500 MG TID PO Apixaban 10 MG BID PO (CKD) Sodium Chloride 500 ML PREOP ONCALL IV Enoxaparin Sodium 90 MG Q12HR SUBQ (DC) Pravastatin Sodium 20 MG BEDTIME PO Venlafaxine HCl 75 MG BEDTIME PO Acetaminophen 1,000 MG PREOP ONCALL PO (CKD) Lactated Ringer's 1,000 ML PREOP ONCALL IV Lidocaine HCl 2 ML PREOP ONCALL LOCAL Lidocaine HCl 2 ML PREOP ONCALL LOCAL Sodium Chloride 500 ML PREOP ONCALL IV Sodium Chloride 500 ML PREOP ONCALL IV Sodium Chloride 1,000 ML PREOP ONCALL IV Sodium Chloride 5 ML ASDIR PRN IV Sodium Chloride 10 ML ASDIR PRN IV Sodium Chloride 250 ML ASDIR PRN IV Hydrochlorothiazide 12.5 MG DAILY PO Lisinopril 10 MG DAILY PO Ceftriaxone Sodium 1,000 MG Q24H IV Sodium Chloride 10 ML Metronidazole/Sodium Chloride 100 ML Q8H IV (DC) Acetaminophen 650 MG Q4H PRN PRN PO Docusate Sodium 100 MG BID PRN PRN PO Ondansetron HCl 4 MG Q4H PRN PRN IV Results Findings/Data: Laboratory Tests 03/24/20 0849: [Embedded Image Not Available] Laboratory Tests 03/24 849 Chemistry Sodium (134 - 147 mEq/L) 140 Potassium (3.4 - 5.0 mEq/L) 3.7 Chloride (100 - 108 mEq/L) 106 Carbon Dioxide (21 - 33 mEq/L) 28 Anion Gap (0 - 20) 10 BUN (7 - 18 mg/dL) 9 Creatinine (0.6 - 1.3 mg/dL) 0.7 Glomerular Filtr Rate (80 - 90) 83.7 Glucose (70 - 110 mg/dL) 103 Calcium (8.0 - 10.5 mg/dL) 8.3 Magnesium (1.8 - 2.4 mg/dL) 2.50 H Laboratory Tests 03/24 849 Hematology WBC (4.5 - 11.0 x10 3/uL) 3.64 L RBC (3.54 - 5.02 x10 6/uL) 4.00 Hgb (11.0 - 15.0 g/dL) 12.7 Hct (33.0 - 45.0 %) 39.0 MCV (81.0 - 99.0 fL) 97.5 MCH (27.0 - 33.0 pg) 31.8 MCHC (33.0 - 37.0 g/dL) 32.6 L RDW (11.5 - 14.5 %) 13.2 Plt Count (150 - 400 x10 3/uL) 206 MPV (7.0 - 9.0 fL) 8.8 Neut % (Auto) (56.0 - 77.0 %) 58.9 Lymph % (Auto) (14.0 - 32.0 %) 23.9 [place] % (Auto) (4.8 - 9.0 %) 11.8 H Eos % (Auto) (0.3 - 3.7 %) 3.8 H Baso % (Auto) (0.0 - 2.0 %) 1.6 Neut # (Auto) (2.0 - 7.6 x10 3/uL) 2.14 Lymph # (Auto) (1.0 - 3.8 x10 3/uL) 0.87 L [place] # (Auto) (0.1 - 0.8 x10 3/uL) 0.43 Eos # (Auto) (0.0 - 0.2 x10 3/uL) 0.14 Baso # (Auto) (0.0 - 0.2 x10 3/uL) 0.06 Abs Immat Gran (auto) (0.00 - 0.03 x10 3/uL) 0.00 Add Manual Diff NO Immature Gran % (0.0 - 2.0 %) 0.0 Nucleated RBC % (0 - 0 %) 0.0 Nucleated RBCs # (Man) (0.0 - 0.1 x10 3/uL) 0.00 Diagnosis, Assessment Plan Free Text DxA P Notes Free Text DxA P Notes: ASSESSMENT AND PLAN: 1. Acute right lower lobe pulmonary embolism along with acute right lower extremity deep venous thromboses, suspected to be provoked secondary to prolonged immobility. 2. Superficial left upper extremity thrombus (left cephalic vein) secondary to recent IV insertions from hospitalization. 3. History of cardiac arrhythmia, status post ablation. 4. Recent diagnosis of infectious colitis, on antibiotics. 5. Hypertension. PLAN: -Hb stable, improved- no bleeding with lovenox- change to eliquis 10mg po BID x 7 days followed by 5mg po BID- duration for 3 months minimum (provoked from immobility) -Colonoscopy at a later time -Antibiotics for recent infectious colitis -Cardio following for SVT -Blood pressure management as per primary team. From hematology perspective, ok for discharge tomorrow. Can follow with me in 2 weeks (lives a distance away may not, asked to then follow PCP) Rigoberto Chambers MD at 1935 RPT #:[id number] END OF [id number] 17:50:00 [facility] ([facility]) Cardiology Consultation REPORT#:[id number] REPORT STATUS: Signed DATE:03/24/20 TIME: 1750 PATIENT: GILLIAN VERDUGO UNIT #: [id number] ROOM/BED: 5531-1 : 54 AGE: 65 SEX: F ATTEND: Gonzalo Morris DO ADM AUTHOR: Quyen Bernal * ALL edits or amendments must be made on the electronic/computer document * History of Present Illness HPI Requesting Clinician: Dr. Murrieta Reason for consult: SVT HPI: 65 yr old female PMH of infectious colitis, psvt, pulmonary embolism, and dvt. Initially went to the ED with a chief complaint of worsening pain in her left arm where she had an IV and was diagnosed with DVT as well as PE. The patient had been in the hospital at [facility] in [place] where she was diagnosed with infectious colitis and hematochezia and aspirin was stopped. Had 3 seconds of SVT on telemetry, thus cardiology consulted for further evaluation. History - Adult longitudinal Additional medical history: GI bleed, colitis, depression, hypertension, hyperlipidemia Additional surgical history: Tubal ligation Additional family history: Reports daughter who is also gotten blood clots in the past Smoking status for patients 13 years old or older: Never Smoker Additional social history: Denies smoking, alcohol use, recreational drug use, works at [employer] Medications: Home Medications: Medication Dose/Rte/Freq Days Qty Entered Last Max Daily Dose Reviewed PRAVASTATIN (PRAVACHOL) 20 MG PO BEDTIME 03/23/20 03/23/20 Strength: 20 MG TAB 0017 0020 VENLAFAXINE (EFFEXOR) 100 MG PO BEDTIME 03/23/20 03/23/20 Strength: 100 MG TAB 0018 0020 LISINOPRIL/HCTZ 1 TAB PO DAILY 03/23/20 03/23/20 (ZESTORETIC 10/12.5 MG) 9 0021 Strength: 10 MG-12.5 MG TAB Current Hospital Medications: Anti-Infective Agents Sig/Joel Start time Last Medication Dose Route Stop Time Status Admin Metronidazole 500 MG TID 03/24 2100 AC (FLAGYL) PO 03/26 210 Ceftriaxone Sodium 1,000 MG Q24H 03/23 0200 AC 03/24 (ROCEPHIN 1000MG IV 03/27 015 0135 VIAL) Sodium Chloride 10 ML (SODIUM CHLORIDE) Metronidazole/Sodium 100 ML Q8H 03/23 0200 DC 03/24 Chloride IV 03/27 0159 1012 (metroNIDAZOLE 500MG/ NS 100ML) Blood Formation,Coagulation Sig/Joel Start time Last Medication Dose Route Stop Time Status Admin Apixaban 10 MG BID 03/24 1200 CKD 03/24 (ELIQUIS 5MG TABLET) PO 04/23 1159 1259 Enoxaparin Sodium 90 MG Q12HR 03/23 2100 DC (lovENOX) SUBQ 04/22 205 Cardiovascular Drugs Sig/Joel Start time Last Medication Dose Route Stop Time Status Admin Pravastatin Sodium 20 MG BEDTIME 03/23 2100 AC 03/23 (PRAVACHOL) PO 04/22 2059 2125 Lidocaine HCl 2 ML PREOP ONCALL 03/23 1730 AC (LIDOCAINE HCL/PF) LOCAL 04/22 235 Lidocaine HCl 2 ML PREOP ONCALL 03/23 173 AC (LIDOCAINE HCL/PF) LOCAL 04/22 235 Lisinopril 10 MG DAILY 03/23 0900 AC 03/24 (ZESTRIL) PO 04/22 0859 1012 Central Nervous System Agents Sig/Joel Start time Last Medication Dose Route Stop Time Status Admin Venlafaxine HCl 75 MG BEDTIME 03/23 2100 AC 03/23 (EFFEXOR) PO 04/22 2059 2125 Acetaminophen 1,000 MG PREOP ONCALL 03/23 1730 CKD (TYLENOL EXTRA PO 04/22 2359 STRENGTH) Acetaminophen 650 MG Q4H PRN PRN 03/23 0015 AC (TYLENOL) PO 04/22 0014 Electrolytic, Caloric, And Stephen Sig/Joel Start time Last Medication Dose Route Stop Time Status Admin Sodium Chloride 500 ML PREOP ONCALL 03/24 0500 AC (SODIUM CHLORIDE IV 03/24 2359 0.9%) Lactated Ringer's 1,000 ML PREOP ONCALL 03/23 1730 AC (LACTATED RINGERS) IV 04/22 2359 Sodium Chloride 500 ML PREOP ONCALL 03/23 1730 AC (SODIUM CHLORIDE IV 04/22 2359 0.9%) Sodium Chloride 500 ML PREOP ONCALL 03/23 1730 AC (SODIUM CHLORIDE IV 04/22 2359 0.9%) Sodium Chloride 1,000 ML PREOP ONCALL 03/23 1730 AC (SODIUM CHLORIDE IV 04/22 2359 0.9%) Sodium Chloride 5 ML ASDIR PRN 03/23 1730 AC (SODIUM CHLORIDE) IV 04/22 1729 Sodium Chloride 10 ML ASDIR PRN 03/23 1730 AC (SODIUM CHLORIDE) IV 04/22 172 Sodium Chloride 250 ML ASDIR PRN 03/23 173 AC (SODIUM CHLORIDE IV 04/22 1729 0.9%) Hydrochlorothiazide 12.5 MG DAILY 03/23 0900 AC 03/24 (HYDRODIURIL) PO 04/22 0859 1011 Gastrointestinal Drugs Sig/Joel Start time Last Medication Dose Route Stop Time Status Admin Docusate Sodium 100 MG BID PRN PRN 03/23 0015 AC (COLACE) PO 04/22 0014 Ondansetron HCl 4 MG Q4H PRN PRN 03/23 0015 AC (ZOFRAN) IV 04/22 0014 Allergies: Coded Allergies: codeine (Severe, NAUSEA 03/23/20) Objective Physical Exam General appearance: alert, awake, oriented Diagnosis, Assessment Plan Free Text DxA P Notes Free Text DxA P Notes: PSVT Acute pulmonary embolism -on high dose eliquis DVT Recent GI bleed Infectious colitis Hypertension -on lisinopril Hyperlipidemia -Lipids: TRIG 255, LDL 78, HDL 54 Plan: -check echo -check lipids -check telemetry and EKG in the AM -further after this at 1800 RPT #:[id number] END OF [id number] 17:50:00 [facility] ([facility]) Cardiology Consultation REPORT#:[id number] REPORT STATUS: Signed DATE:03/24/20 TIME: 1750 PATIENT: GILLIAN VERDUGO UNIT #: [id number] ROOM/BED: [place] [address] : 54 AGE: 65 SEX: F ATTEND: Gonzalo Morris DO ADM AUTHOR: Quyen Bernal * ALL edits or amendments must be made on the electronic/computer document * Quyen Reed 03/24/20 1750: History of Present Illness HPI Requesting Clinician: Dr. Murrieta Reason for consult: SVT HPI: 65 yr old female PMH of infectious colitis, psvt, pulmonary embolism, and dvt. Initially went to the ED with a chief complaint of worsening pain in her left arm where she had an IV and was diagnosed with DVT as well as PE. The patient had been in the hospital at [facility] in [place] where she was diagnosed with infectious colitis and hematochezia and aspirin was stopped. Had 3 seconds of SVT on telemetry, thus cardiology consulted for further evaluation. History - Adult longitudinal Additional medical history: GI bleed, colitis, depression, hypertension, hyperlipidemia Additional surgical history: Tubal ligation Additional family history: Reports daughter who is also gotten blood clots in the past Smoking status for patients 13 years old or older: Never Smoker Additional social history: Denies smoking, alcohol use, recreational drug use, works at [employer] Medications: Home Medications: Medication Dose/Rte/Freq Days Qty Entered Last Max Daily Dose Reviewed PRAVASTATIN (PRAVACHOL) 20 MG PO BEDTIME 03/23/20 03/23/20 Strength: 20 MG TAB 0017 0020 VENLAFAXINE (EFFEXOR) 100 MG PO BEDTIME 03/23/20 03/23/20 Strength: 100 MG TAB 0018 0020 LISINOPRIL/HCTZ 1 TAB PO DAILY 03/23/20 03/23/20 (ZESTORETIC 10/12.5 MG) 0019 0021 Strength: 10 MG-12.5 MG TAB Current Hospital Medications: Anti-Infective Agents Sig/Joel Start time Last Medication Dose Route Stop Time Status Admin Metronidazole 500 MG TID 03/24 2100 AC (FLAGYL) PO 03/26 2101 Ceftriaxone Sodium 1,000 MG Q24H 03/23 0200 AC 03/24 (ROCEPHIN 1000MG IV 03/27 0159 0135 VIAL) Sodium Chloride 10 ML (SODIUM CHLORIDE) Metronidazole/Sodium 100 ML Q8H 03/23 0200 DC 03/24 Chloride IV 03/27 0159 1012 (metroNIDAZOLE 500MG/ NS 100ML) Blood Formation,Coagulation Sig/Joel Start time Last Medication Dose Route Stop Time Status Admin Apixaban 10 MG BID 03/24 1200 CKD 03/24 (ELIQUIS 5MG TABLET) PO 04/23 1159 1259 Enoxaparin Sodium 90 MG Q12HR 03/23 2100 DC (lovENOX) SUBQ 04/22 2059 Cardiovascular Drugs Sig/Joel Start time Last Medication Dose Route Stop Time Status Admin Pravastatin Sodium 20 MG BEDTIME 03/23 2100 AC 03/23 (PRAVACHOL) PO 04/22 2059 2125 Lidocaine HCl 2 ML PREOP ONCALL 03/23 1730 AC (LIDOCAINE HCL/PF) LOCAL 04/22 235 Lidocaine HCl 2 ML PREOP ONCALL 03/23 1730 AC (LIDOCAINE HCL/PF) LOCAL 04/22 2359 Lisinopril 10 MG DAILY 03/23 0900 AC 03/24 (ZESTRIL) PO 04/22 0859 1012 Central Nervous System Agents Sig/Joel Start time Last Medication Dose Route Stop Time Status Admin Venlafaxine HCl 75 MG BEDTIME 03/23 2100 AC 03/23 (EFFEXOR) PO 04/22 2059 2125 Acetaminophen 1,000 MG PREOP ONCALL 03/23 1730 CKD (TYLENOL EXTRA PO 04/22 235 STRENGTH) Acetaminophen 650 MG Q4H PRN PRN 03/23 0015 AC (TYLENOL) PO 04/22 0014 Electrolytic, Caloric, And Stephen Sig/Joel Start time Last Medication Dose Route Stop Time Status Admin Sodium Chloride 500 ML PREOP ONCALL 03/24 0500 AC (SODIUM CHLORIDE IV 03/24 2359 0.9%) Lactated Ringer's 1,000 ML PREOP ONCALL 03/23 1730 AC (LACTATED RINGERS) IV 04/22 235 Sodium Chloride 500 ML PREOP ONCALL 03/23 1730 AC (SODIUM CHLORIDE IV 04/22 2359 0.9%) Sodium Chloride 500 ML PREOP ONCALL 03/23 1730 AC (SODIUM CHLORIDE IV 04/22 2359 0.9%) Sodium Chloride 1,000 ML PREOP ONCALL 03/23 1730 AC (SODIUM CHLORIDE IV 04/22 2359 0.9%) Sodium Chloride 5 ML ASDIR PRN 03/23 1730 AC (SODIUM CHLORIDE) IV 04/22 1729 Sodium Chloride 10 ML ASDIR PRN 03/23 1730 AC (SODIUM CHLORIDE) IV 04/22 1729 Sodium Chloride 250 ML ASDIR PRN 03/23 1730 AC (SODIUM CHLORIDE IV 04/22 1729 0.9%) Hydrochlorothiazide 12.5 MG DAILY 03/23 0900 AC 03/24 (HYDRODIURIL) PO 04/22 0859 1011 Gastrointestinal Drugs Sig/Joel Start time Last Medication Dose Route Stop Time Status Admin Docusate Sodium 100 MG BID PRN PRN 03/23 0015 AC (COLACE) PO 04/22 0014 Ondansetron HCl 4 MG Q4H PRN PRN 03/23 0015 AC (ZOFRAN) IV 04/22 001 Allergies: Coded Allergies: codeine (Severe, NAUSEA 03/23/20) Objective Physical Exam General appearance: alert, awake, oriented Diagnosis, Assessment Plan Free Text DxA P Notes Free Text DxA P Notes: PSVT Acute pulmonary embolism -on high dose eliquis DVT Recent GI bleed Infectious colitis Hypertension -on lisinopril Hyperlipidemia -Lipids: TRIG 255, LDL 78, HDL 54 Plan: -check echo -check lipids -check telemetry and EKG in the AM -further after this Ali,Max 04/03/20 1421: Attestations Physician Attestation Reviewed findings plan: Patient seen and examined. The clinical and laboratory data was reviewed. The evaluation and management plan was discussed with the PRETZEL PACKER. Medications and vital signs were reviewed. Agree with assessment above at 1800 RPT #:[id number] END OF [id number] 17:50:00 [facility] ([facility]) Cardiology Consultation REPORT#:[id number] REPORT STATUS: Signed DATE:03/24/20 TIME: 1750 PATIENT: GILLIAN VERDUGO UNIT #: [id number] ROOM/BED: 5531-1 : 54 AGE: 65 SEX: F ATTEND: Gonzalo Morris DO ADM AUTHOR: Quyen Bernal * ALL edits or amendments must be made on the electronic/computer document * Quyen Reed 03/24/20 1750: History of Present Illness HPI Requesting Clinician: Dr. Murrieta Reason for consult: SVT HPI: 65 yr old female PMH of infectious colitis, psvt, pulmonary embolism, and dvt. Initially went to the ED with a chief complaint of worsening pain in her left arm where she had an IV and was diagnosed with DVT as well as PE. The patient had been in the hospital at [facility] in [place] where she was diagnosed with infectious colitis and hematochezia and aspirin was stopped. Had 3 seconds of SVT on telemetry, thus cardiology consulted for further evaluation. History - Adult longitudinal Additional medical history: GI bleed, colitis, depression, hypertension, hyperlipidemia Additional surgical history: Tubal ligation Additional family history: Reports daughter who is also gotten blood clots in the past Smoking status for patients 13 years old or older: Never Smoker Additional social history: Denies smoking, alcohol use, recreational drug use, works at [employer] Medications: Home Medications: Medication Dose/Rte/Freq Days Qty Entered Last Max Daily Dose Reviewed PRAVASTATIN (PRAVACHOL) 20 MG PO BEDTIME 03/23/20 03/23/20 Strength: 20 MG TAB 0017 0020 VENLAFAXINE (EFFEXOR) 100 MG PO BEDTIME 03/23/20 03/23/20 Strength: 100 MG TAB 0018 0020 LISINOPRIL/HCTZ 1 TAB PO DAILY 03/23/20 03/23/20 (ZESTORETIC 10/12.5 MG) 0019 0021 Strength: 10 MG-12.5 MG TAB Current Hospital Medications: Anti-Infective Agents Sig/Joel Start time Last Medication Dose Route Stop Time Status Admin Metronidazole 500 MG TID 03/24 2100 AC (FLAGYL) PO 03/26 2101 Ceftriaxone Sodium 1,000 MG Q24H 03/23 0200 AC 03/24 (ROCEPHIN 1000MG IV 03/27 159 0135 VIAL) Sodium Chloride 10 ML (SODIUM CHLORIDE) Metronidazole/Sodium 100 ML Q8H 03/23 0200 DC 03/24 Chloride IV 03/27 0159 1012 (metroNIDAZOLE 500MG/ NS 100ML) Blood Formation,Coagulation Sig/Joel Start time Last Medication Dose Route Stop Time Status Admin Apixaban 10 MG BID 03/24 1200 CKD 03/24 (ELIQUIS 5MG TABLET) PO 04/23 1159 1259 Enoxaparin Sodium 90 MG Q12HR 03/23 2100 DC (lovENOX) SUBQ 04/22 2059 Cardiovascular Drugs Sig/Joel Start time Last Medication Dose Route Stop Time Status Admin Pravastatin Sodium 20 MG BEDTIME 03/23 2100 AC 03/23 (PRAVACHOL) PO 04/22 2059 2125 Lidocaine HCl 2 ML PREOP ONCALL 03/23 1730 AC (LIDOCAINE HCL/PF) LOCAL 04/22 235 Lidocaine HCl 2 ML PREOP ONCALL 03/23 1730 AC (LIDOCAINE HCL/PF) LOCAL 04/22 235 Lisinopril 10 MG DAILY 03/23 0900 AC 03/24 (ZESTRIL) PO 04/22 0859 1012 Central Nervous System Agents Sig/Joel Start time Last Medication Dose Route Stop Time Status Admin Venlafaxine HCl 75 MG BEDTIME 03/23 2100 AC 03/23 (EFFEXOR) PO 04/22 Acetaminophen 1,000 MG PREOP ONCALL 03/23 1730 CKD (TYLENOL EXTRA PO 04/22 2359 STRENGTH) Acetaminophen 650 MG Q4H PRN PRN 03/23 0015 AC (TYLENOL) PO 04/22 0014 Electrolytic, Caloric, And Stephen Sig/Joel Start time Last Medication Dose Route Stop Time Status Admin Sodium Chloride 500 ML PREOP ONCALL 03/24 0500 AC (SODIUM CHLORIDE IV 03/24 2359 0.9%) Lactated Ringer's 1,000 ML PREOP ONCALL 03/23 1730 AC (LACTATED RINGERS) IV 04/22 235 Sodium Chloride 500 ML PREOP ONCALL 03/23 1730 AC (SODIUM CHLORIDE IV 04/22 2359 0.9%) Sodium Chloride 500 ML PREOP ONCALL 03/23 1730 AC (SODIUM CHLORIDE IV 04/22 2359 0.9%) Sodium Chloride 1,000 ML PREOP ONCALL 03/23 1730 AC (SODIUM CHLORIDE IV 04/22 235 0.9%) Sodium Chloride 5 ML ASDIR PRN 03/23 1730 AC (SODIUM CHLORIDE) IV 04/22 1729 Sodium Chloride 10 ML ASDIR PRN 03/23 1730 AC (SODIUM CHLORIDE) IV 04/22 172 Sodium Chloride 250 ML ASDIR PRN 03/23 1730 AC (SODIUM CHLORIDE IV 04/22 1729 0.9%) Hydrochlorothiazide 12.5 MG DAILY 03/23 0900 AC 03/24 (HYDRODIURIL) PO 04/22 0859 1011 Gastrointestinal Drugs Sig/Joel Start time Last Medication Dose Route Stop Time Status Admin Docusate Sodium 100 MG BID PRN PRN 03/23 15 AC (COLACE) PO 04/22 14 Ondansetron HCl 4 MG Q4H PRN PRN 03/23 001 AC (ZOFRAN) IV 04/22 14 Allergies: Coded Allergies: codeine (Severe, NAUSEA 03/23/20) Objective Physical Exam General appearance: alert, awake, oriented Diagnosis, Assessment Plan Free Text DxA P Notes Free Text DxA P Notes: PSVT Acute pulmonary embolism -on high dose eliquis DVT Recent GI bleed Infectious colitis Hypertension -on lisinopril Hyperlipidemia -Lipids: TRIG 255, LDL 78, HDL 54 Plan: -check echo -check lipids -check telemetry and EKG in the AM -further after this Max Erickson 04/03/20 1421: Attestations Physician Attestation Reviewed findings plan: Patient seen and examined. The clinical and laboratory data was reviewed. The evaluation and management plan was discussed with the PRETZEL PACKER. Medications and vital signs were reviewed. Agree with assessment above at 1800 at 1424 RPT #:[id number] END OF [id number] 16:58:00 [facility]) Pharmacy Prog.Note IV to PO REPORT#:[id number] REPORT STATUS: Signed DATE:03/24/20 TIME: 1657 PATIENT: GILLIAN VERDUGO UNIT #: [id number] ROOM/BED: [place] [address] : 54 AGE: 65 SEX: F ATTEND: Gonzalo Morris DO ADM AUTHOR: [facility] * ALL edits or amendments must be made on the electronic/computer document * IV to PO Adjustment IV to PO Adjustment Medication: From: metronidazole 500 mg iv q8h To: metronidazole 500 mg po tid Diet: regular at 1659 RPT #:[id number] END OF [id number] 12:13:00 [facility]) Clinical Note REPORT#:[id number] REPORT STATUS: Signed DATE:03/24/20 TIME: 1213 PATIENT: GILLIAN VREDUGO UNIT #: [id number] ROOM/BED: [place] [address] : 54 AGE: 65 SEX: F ATTEND: Gonzalo Morris DO ADM AUTHOR: Max Erickson MD * ALL edits or amendments must be made on the electronic/computer document * Clinical Note Note: Colitis psvt. Pulmonary embolism. dvt Plan check echo. check telemtery further after this. at 1214 RPT #:[id number] END OF [id number] 11:48:00 [facility] ([facility]) Hospitalist Progress Note REPORT#:[id number] REPORT STATUS: Signed DATE:03/24/20 TIME: 1148 PATIENT: GILLIAN VERDUGO UNIT #: [id number] ROOM/BED: [place] [address] : 54 AGE: 65 SEX: F ATTEND: Gonzalo Morris DO ADM AUTHOR: Silvio Murrieta MD * ALL edits or amendments must be made on the electronic/computer document * Subjective Chief Complaint: no cp no sob. Objective General VS/I O: Vital Signs: Date Time Temp Pulse Resp B/P B/P Pulse O2 O2 Flow FiO2 Mean Ox Delivery Rate 03/24 1038 97.9 68 18 132/82 98.9 95 03/24 0644 97.9 72 18 125/85 98.2 95 03/24 0341 97.9 81 16 123/76 91.7 96 Room air 03/23 2308 97.3 89 16 129/77 94.4 96 Room air 03/23 1941 98.2 89 16 133/73 92.8 97 Room air 03/23 1610 98.1 83 145/83 103.5 98 24 hour I O ending at 0700: 03/24 0700 03/23 1900 Intake Total 660.00 500 Output Total Balance 660.00 500 Intake, IV 100.00 Intake, Oral 560 500 Number Voids 3 Patient Weight Weight (lb): 191 Weight (oz): 12.83 Weight (kg): 87.000 Physical Exam General appearance: alert, awake, oriented Head/Eyes: clear cornea, EOMI ENT: moist mucosal membranes Neck: non-tender, supple/no meningismus Cardiovascular: normal heart sounds, regular rate rhythm Respiratory: aerating well, clear to auscultation, symmetric expansion Abdomen: non-tender, normal bowel sounds, soft Extremities: L arm thrombophembitis, R LE swelling Neuro/WOUND/OSTOMY CLINICAL NURSE SPECIALIST: alert, oriented X 3 Skin: dry, intact Diagnosis, Assessment Plan Free Text DxA P Notes Free text DxA P notes: Assessments -Acute pulmonary embolism -DVT -Superficial thrombophlebitis -Recent GI bleed -Infectious colitis -Depression -Hypertension -Hyperlipidemia -SVT Plan -Received Lovenox x1 in freestanding ED, continue for now, no evidence of active bleeding currently -Continue antibiotics, Rocephin and Flagyl -Gastroenterology, hematology, pulmonology evaluation -Continue indicated home medications -Regular diet -Monitor on telemetry -DVT prophylaxis: Full dose Lovenox 03/24 - Colonscopy cancelled because of the acute PE/DVT. plan is for colon in 6 months. Start Eliquis today since no more bleeding. dc in AM if h/h stable and no bleeding. Quality Current Medications Current medication review: I attest that the foregoing medication list in the medical record is true, accurate, and complete to the best of my knowledge. at 1153 RPT #:[id number] END OF [id number] 11:48:00 [facility] ([facility] Hospitalist Progress Note REPORT#:[id number] REPORT STATUS: Signed DATE:03/24/20 TIME: 1148 PATIENT: GILLIAN VERDUGO UNIT #: [id number] ROOM/BED: [place] [address] : 54 AGE: 65 SEX: F ATTEND: Gonzalo Morris DO ADM AUTHOR: Silvio Murrieta MD * ALL edits or amendments must be made on the electronic/computer document * See Addendum Subjective Chief Complaint: no cp no sob. Objective General VS/I O: Vital Signs: Date Time Temp Pulse Resp B/P B/P Pulse O2 O2 Flow FiO2 Mean Ox Delivery Rate 03/24 1038 97.9 68 18 132/82 98.9 95 03/24 0644 97.9 72 18 125/85 98.2 95 03/24 0341 97.9 81 16 123/76 91.7 96 Room air 03/23 2308 97.3 89 16 129/77 94.4 96 Room air 03/23 1941 98.2 89 16 133/73 92.8 97 Room air 03/23 1610 98.1 83 145/83 103.5 98 24 hour I O ending at 0700: 03/24 0700 03/23 1900 Intake Total 660.00 500 Output Total Balance 660.00 500 Intake, IV 100.00 Intake, Oral 560 500 Number Voids 3 Patient Weight Weight (lb): 191 Weight (oz): 12.83 Weight (kg): 87.000 Physical Exam General appearance: alert, awake, oriented Head/Eyes: clear cornea, EOMI ENT: moist mucosal membranes Neck: non-tender, supple/no meningismus Cardiovascular: normal heart sounds, regular rate rhythm Respiratory: aerating well, clear to auscultation, symmetric expansion Abdomen: non-tender, normal bowel sounds, soft Extremities: L arm thrombophembitis, R LE swelling Neuro/WOUND/OSTOMY CLINICAL NURSE SPECIALIST: alert, oriented X 3 Skin: dry, intact Diagnosis, Assessment Plan Free Text DxA P Notes Free text DxA P notes: Assessments -Acute pulmonary embolism -DVT -Superficial thrombophlebitis -Recent GI bleed -Infectious colitis -Depression -Hypertension -Hyperlipidemia -SVT Plan -Received Lovenox x1 in freestanding ED, continue for now, no evidence of active bleeding currently -Continue antibiotics, Rocephin and Flagyl -Gastroenterology, hematology, pulmonology evaluation -Continue indicated home medications -Regular diet -Monitor on telemetry -DVT prophylaxis: Full dose Lovenox 03/24 - Colonscopy cancelled because of the acute PE/DVT. plan is for colon in 6 months. Start Eliquis today since no more bleeding. dc in AM if h/h stable and no bleeding. Quality Current Medications Current medication review: I attest that the foregoing medication list in the medical record is true, accurate, and complete to the best of my knowledge. at 1153 Addendum 1: 03/24/20 1155 by Silvio Murrieta MD d/w oncology. ok to start eliquis today. pt also had a run of SVT, which the patient says has occured in the past. Pt states she goes to a medical underwriter already normally. at 1159 RPT #:[id number] END OF [id number] 11:19:00 [facility] Pulmonology Progress Note REPORT#:[id number] REPORT STATUS: Signed DATE:03/24/20 TIME: 1119 PATIENT: GILLIAN VERDUGO UNIT #: [id number] ROOM/BED: [place] [address] : 54 AGE: 65 SEX: F ATTEND: Gonzalo Morris DO ADM AUTHOR: Black Gracia MD * ALL edits or amendments must be made on the electronic/computer document * Subjective Chief Complaint: dyspnea Comments: Feels better No cp, palp, sob No overt bleeding Objective Physical Exam VS/I O: Laboratory Tests: 03/24 0849 Chemistry Sodium (134 - 147 mEq/L) 140 Potassium (3.4 - 5.0 mEq/L) 3.7 Chloride (100 - 108 mEq/L) 106 Carbon Dioxide (21 - 33 mEq/L) 28 Anion Gap (0 - 20) 10 BUN (7 - 18 mg/dL) 9 Creatinine (0.6 - 1.3 mg/dL) 0.7 Glomerular Filtr Rate (80 - 90) 83.7 Glucose (70 - 110 mg/dL) 103 Calcium (8.0 - 10.5 mg/dL) 8.3 Magnesium (1.8 - 2.4 mg/dL) 2.50 H Hematology WBC (4.5 - 11.0 x10 3/uL) 3.64 L RBC (3.54 - 5.02 x10 6/uL) 4.00 Hgb (11.0 - 15.0 g/dL) 12.7 Hct (33.0 - 45.0 %) 39.0 MCV (81.0 - 99.0 fL) 97.5 MCH (27.0 - 33.0 pg) 31.8 MCHC (33.0 - 37.0 g/dL) 32.6 L RDW (11.5 - 14.5 %) 13.2 Plt Count (150 - 400 x10 3/uL) 206 MPV (7.0 - 9.0 fL) 8.8 Neut % (Auto) (56.0 - 77.0 %) 58.9 Lymph % (Auto) (14.0 - 32.0 %) 23.9 [place] % (Auto) (4.8 - 9.0 %) 11.8 H Eos % (Auto) (0.3 - 3.7 %) 3.8 H Baso % (Auto) (0.0 - 2.0 %) 1.6 Neut # (Auto) (2.0 - 7.6 x10 3/uL) 2.14 Lymph # (Auto) (1.0 - 3.8 x10 3/uL) 0.87 L [place] # (Auto) (0.1 - 0.8 x10 3/uL) 0.43 Eos # (Auto) (0.0 - 0.2 x10 3/uL) 0.14 Baso # (Auto) (0.0 - 0.2 x10 3/uL) 0.06 Abs Immat Gran (auto) (0.00 - 0.03 x10 3/uL) 0.00 Add Manual Diff NO Immature Gran % (0.0 - 2.0 %) 0.0 Nucleated RBC % (0 - 0 %) 0.0 Nucleated RBCs # (Man) (0.0 - 0.1 x10 3/uL) 0.00 Current Medications Sig/Joel Start time Last Medication Dose Route Stop Time Status Admin Sodium Chloride 500 ML PREOP ONCALL 03/24 0500 AC IV 03/24 2359 Enoxaparin Sodium 90 MG Q12HR 03/23 2100 CKDr SUBQ 04/22 2059 Pravastatin Sodium 20 MG BEDTIME 03/23 2100 AC 03/23 PO 04/22 Venlafaxine HCl 75 MG BEDTIME 03/23 2100 AC 03/23 PO 04/22 Acetaminophen 1,000 MG PREOP ONCALL 03/23 1730 CKD PO 04/22 2359 Lactated Ringer's 1,000 ML PREOP ONCALL 03/23 1730 AC IV 04/22 2359 Lidocaine HCl 2 ML PREOP ONCALL 03/23 1730 AC LOCAL 04/22 2359 Lidocaine HCl 2 ML PREOP ONCALL 03/23 1730 AC LOCAL 04/22 2359 Sodium Chloride 500 ML PREOP ONCALL 03/23 1730 AC IV 04/22 2359 Sodium Chloride 500 ML PREOP ONCALL 03/23 1730 AC IV 04/22 2359 Sodium Chloride 1,000 ML PREOP ONCALL 03/23 1730 AC IV 04/22 2359 Sodium Chloride 5 ML ASDIR PRN 03/23 1730 AC IV 04/22 1729 Sodium Chloride 10 ML ASDIR PRN 03/23 1730 AC IV 04/22 1729 Sodium Chloride 250 ML ASDIR PRN 03/23 1730 AC IV 04/22 1729 Polyethylene Glycol/ 2,000 ML ONCE ONE 03/23 1400 DC 03/23 Electrolytes PO 03/23 1401 1356 Magnesium Citrate 300 ML ONCE ONE 03/23 1300 DC 03/23 PO 03/23 1301 1355 Hydrochlorothiazide 12.5 MG DAILY 03/23 0900 AC 03/24 PO 04/22 0859 1011 Lisinopril 10 MG DAILY 03/23 0900 AC 03/24 PO 04/22 0859 1012 Ceftriaxone Sodium 1,000 MG Q24H 03/23 0200 AC 03/24 Sodium Chloride 10 ML IV 03/27 0159 0135 Metronidazole/Sodium 100 ML Q8H 03/23 0200 AC 03/24 Chloride IV 03/27 0159 1012 Acetaminophen 650 MG Q4H PRN PRN 03/23 0015 AC PO 04/22 0014 Docusate Sodium 100 MG BID PRN PRN 03/23 0015 AC PO 04/22 0014 Ondansetron HCl 4 MG Q4H PRN PRN 03/23 0015 AC IV 04/22 0014 Last Documented: Result Date Time Pulse Ox 95 03/24 1038 B/P 132/82 03/24 1038 B/P Mean 98.9 03/24 1038 Temp 97.9 03/24 1038 Pulse 68 03/24 1038 Resp 18 03/24 1038 O2 Delivery Room air 03/24 0341 24 hour I O ending at 0700: 03/24 0700 03/23 1900 Intake Total 660.00 500 Output Total Balance 660.00 500 Intake, IV 100.00 Intake, Oral 560 500 Number Voids 3 Patient Weight Weight (lb): 191 Weight (oz): 12.83 Weight (kg): 87.000 General appearance: alert, no acute distress Head/eyes: atraumatic, normocephalic ENT: ENT: moist mucosal membranes, normal pharynx Neck: non-tender, supple/no meningismus Cardiovascular: normal S1/S2, regular rate rhythm Respiratory/chest: clear to auscultation, symmetric expansion Abdomen: soft, non-tender Extremities: no cyanosis, no edema Musculoskeletal: normal inspection, no muscle spasm Neuro/WOUND/OSTOMY CLINICAL NURSE SPECIALIST: alert, oriented X 3 Skin: warm, dry Diagnosis, Assessment Plan Free Text A P: IMPRESSION: 1. Venous thromboembolic disease, acute first episode, new onset, provoking factors of GI bleeding in hospital stay, nonsmoker, possible family history as described above. 2. Colitis. Gastrointestinal bleed being evaluated. If the bleeding continues to be a problem we may have to revisit the issue of anticoagulation. 3. No history of lung disease. RECOMMENDATIONS: 1. Continue anticoagulation with subcutaneous transition to oral anticoagulation. 2. Follow hemoglobin and lab work. 3. I spoke with the patient regarding need for followup and possibly hypercoagulable workup at some point after her acute episode is over to reassess need for long-term anticoagulation, especially given some family history of the same. 6.29 CV and RESP status stable OK to transition to Xarelto or Eliquis per HemOnc Spoke with pt and daughter (nurse) by [employer] phone. Advised f/u with pulm and HemOnc docs close to where she lives or with doc here - gave pt my office info at 1123 RPT #:[id number] END OF [id number] 11:09:00 [facility]) Gastroenterology Progress Note REPORT#:[id number] REPORT STATUS: Signed DATE:03/24/20 TIME: 1109 PATIENT: GILLIAN VERDUGO UNIT #: [id number] ROOM/BED: [place] [address] : 54 AGE: 65 SEX: F ATTEND: Gonzalo Morris DO ADM AUTHOR: Mariah Pereyra MD * ALL edits or amendments must be made on the electronic/computer document * Subjective Chief Complaint: no GI complaints Review of Systems All systems rev neg: except as marked Objective General VS/I O: Last Documented: Result Date Time Pulse Ox 95 03/24 1038 B/P 132/82 03/24 1038 B/P Mean 98.9 03/24 1038 Temp 36.6 03/24 1038 Pulse 68 03/24 1038 Resp 18 03/24 1038 O2 Delivery Room air 03/24 0341 24 hour I O ending at 0700: 03/24 0700 03/23 1900 Intake Total 660.00 500 Output Total Balance 660.00 500 Intake, IV 100.00 Intake, Oral 560 500 Number Voids 3 Patient Weight Weight (lb): 191 Weight (oz): 12.83 Weight (kg): 87.000 Medications: Active Meds + DC'd Last 24 Hrs Sodium Chloride 500 ML PREOP ONCALL IV Enoxaparin Sodium 90 MG Q12HR SUBQ (CKDr) Pravastatin Sodium 20 MG BEDTIME PO Venlafaxine HCl 75 MG BEDTIME PO Acetaminophen 1,000 MG PREOP ONCALL PO (CKD) Lactated Ringer's 1,000 ML PREOP ONCALL IV Lidocaine HCl 2 ML PREOP ONCALL LOCAL Lidocaine HCl 2 ML PREOP ONCALL LOCAL Sodium Chloride 500 ML PREOP ONCALL IV Sodium Chloride 500 ML PREOP ONCALL IV Sodium Chloride 1,000 ML PREOP ONCALL IV Sodium Chloride 5 ML ASDIR PRN IV Sodium Chloride 10 ML ASDIR PRN IV Sodium Chloride 250 ML ASDIR PRN IV Polyethylene Glycol/Electrolytes 2,000 ML ONCE ONE PO (DC) Magnesium Citrate 300 ML ONCE ONE PO (DC) Hydrochlorothiazide 12.5 MG DAILY PO Lisinopril 10 MG DAILY PO Ceftriaxone Sodium 1,000 MG Q24H IV Sodium Chloride 10 ML Metronidazole/Sodium Chloride 100 ML Q8H IV Acetaminophen 650 MG Q4H PRN PRN PO Docusate Sodium 100 MG BID PRN PRN PO Ondansetron HCl 4 MG Q4H PRN PRN IV Physical Exam General appearance: alert, awake, oriented, no acute distress, mental status normal, no respiratory distress HEENT: atraumatic, EOMI, normocephalic, PERRLA Neck: supple/no meningismus Cardiovascular: normal heart sounds, normal S1/S2, regular rate rhythm Respiratory: clear to auscultation, equal breath sounds, symmetric expansion Abdomen: non-tender, normal bowel sounds, soft, no distention Extremities: moves all, no clubbing, no cyanosis, no edema Neuro/WOUND/OSTOMY CLINICAL NURSE SPECIALIST: alert, oriented X 3, normal speech Skin: dry, normal color, normal temperature Psychiatry: normal affect, normal judgment/insight, normal mood Diagnosis, Assessment Plan Free Text A P: IMPRESSION: 1. New diagnosis of deep venous thrombosis and pulmonary embolism. Currently, the patient would be on anticoagulation. Likely, the risk factors could be related to recent attack of severe colitis and hospitalizations and IV placements. However, since she has significant family history of colon cancer, she will benefit from a colonoscopy. 2. Severe colitis. At this point of time, the patient is quite worried and her daughter, Debra, who I spoke to over the phone, is worried that a colonoscopy was not done during her hospitalization last week. Likelihood that she could have still underlying chances of malignancy. Case discussed with anesthesia, colonoscopy canceled because anesthesia rate risk of PE under TIVA more than beneficial at this time. Colonoscopy in 6 months. at 1113 [facility] #:[id number] END OF [id number] 17:06:[id number] [address] PATIENT NAME: GILLIAN VERDUGO ADMIT DATE: 03/22/20 ACCOUNT NO: [id number] ROOM NO: G.[id number] AGE: 65 REPORT TYPE: CONSULTATION REPORT SEX: F ADMITTING PHYSICIAN:Gonzalo Morris DO ATTENDING PHYSICIAN:Gonzalo Morris DO CONSULTATION DATE: 03/23/2020 CONSULTING PHYSICIAN: Black Garcia MD REASON FOR CONSULTATION: Pulmonary embolism. HISTORY OF PRESENT ILLNESS: The patient is a pleasant 65-year-old woman who was transferred from an [facility] in [place] with pulmonary embolism. She went there with shortness of breath and leg pain and swelling and arm pain and swelling. She was found to have DVT and PE. The CTA chest report notes a right lower lobe pulmonary arterial branch filling defect. The patient has been transferred to this facility for inpatient care. She has been started on anticoagulation. She is feeling better. She also had issues of recent hospital stay for GI bleed and colitis, with a history of depression, hypertension, and dyslipidemia. She had a recent hospital stay at [facility] for about 4 days and was released about 2 to 3 days ago. She had hematochezia. She is to be evaluated by funeral home attendant. Endoscopy is planned. There is no personal history of blood clotting problems in the patient. She is a nonsmoker and not on estrogens. She states that her daughter has had clots related to IVs in her arms. Also, said her father had blood clots in his legs, but apparently had emphysema as well. Exact details are not clear. The patient is breathing without difficulties without pleuritic chest pain. She reports no hemoptysis. PAST MEDICAL HISTORY: 1. Hypertension. 2. Dyslipidemia. 3. Depression. 4. Recent history of gastrointestinal bleeding. HOME MEDICATIONS: Reviewed. CURRENT MEDICATIONS: List noted. ALLERGIES: CODEINE. SOCIAL HISTORY: No tobacco use. No alcohol use. Had been working at a [employer]. PATIENT NAME: GILLIAN VERDUGO REVIEW OF SYSTEMS: A x14 is negative or normal except as described above. FAMILY HISTORY: Noncontributory except for described above as far as blood clots. PHYSICAL EXAMINATION: GENERAL: Moderately developed and nourished, alert, pleasant, interactive lady in no distress, talking and breathing without difficulties. VITAL SIGNS: Blood pressure 145/83, heart rate 83; respirations 18, not labored; temperature 98.1, and pulse ox 98%. Weight 87 kilograms. HEENT: Head is normocephalic. Eyes unremarkable. Reactive pupils. No icterus. Face symmetric. Oral exam shows dry mucosa, no acute findings. NECK: Supple. Neck veins not distended. CHEST: Clear, symmetric breath sounds. CARDIAC: Regular rhythm. Normal exam. ABDOMEN: Soft and nontender. EXTREMITIES: Unremarkable. No clubbing, cyanosis, or edema. SKIN: No acute findings on brief examination. NEUROLOGIC: Nonfocal, symmetric brief exam. DIAGNOSTIC DATA: Reviewed CT chest report. Ultrasound report noted. IMPRESSION: 1. Venous thromboembolic disease, acute first episode, new onset, provoking factors of GI bleeding in hospital stay, nonsmoker, possible family history as described above. 2. Colitis. Gastrointestinal bleed being evaluated. If the bleeding continues to be a problem we may have to revisit the issue of anticoagulation. 3. No history of lung disease. RECOMMENDATIONS: 1. Continue anticoagulation with subcutaneous transition to oral anticoagulation. 2. Follow hemoglobin and lab work. 3. I spoke with the patient regarding need for followup and possibly hypercoagulable workup at some point after her acute episode is over to reassess need for long-term anticoagulation, especially given some family history of the same. Initial thoughts and plans were discussed with the patient. Questions answered. We will follow her care. Thank you for the consultation. Dictated By: Black Garcia MD WT: CON:PAGE/ENA/RONNIE Conf#: [id number]/DID#: [id number] Authenticated by Black Garcia MD On 04/06/2020 05:01:04 PM PATIENT NAME: GILLIAN VERDUGO at 1015 PATIENT NAME: GILLIAN VERDUGO 15:32:00 [id number] [place] [address] PATIENT NAME: GILLIAN VERDUGO ADMIT DATE: 03/22/20 ACCOUNT NO: [id number] ROOM NO: G.5531 AGE: 65 REPORT TYPE: CONSULTATION REPORT SEX: F ADMITTING PHYSICIAN:Gonzalo Morris DO ATTENDING PHYSICIAN:Gonzalo Morris DO CONSULTATION DATE: 03/23/2020 CONSULTING PHYSICIAN: Rigoberto Chambers MD PHYSICIAN REQUESTING CONSULTATION: Gonzalo Morris DO REASON FOR CONSULTATION: Lower extremity DVT along with pulmonary embolism. HISTORY OF PRESENT ILLNESS: This is an extremely pleasant 65-year-old female with a recently diagnosed infectious colitis, on antibiotics (Flagyl and Cipro), status post significant lower GI bleed, hypertension, dyslipidemia, who presented as a transfer from [facility] after she had been complaining of left upper extremity pain and right lower extremity swelling. The patient had been hospitalized from 03/17/2020 03/20/2005 in [place] for infectious colitis. She was noted to have significant GI bleeding at that time; however, did resolve after initiation of antibiotics. She has a previous history of ablation in her 30s and had been on aspirin 81 mg oral daily; however, had been discontinued. She says that she was not mobile whatsoever during her hospitalization those 3 days. Otherwise, she is quite active and works at [employer] in the [employer] department up to 40 hours a week. In the [facility] EGD, she did have a CT angiogram performed, which showed pulmonary embolism involving the right lower lobe pulmonary artery extending into the subsegmental branches with almost complete occlusion of the right lower lobe anterior segmental branch. No saddle embolism or right ventricular strain was noted. She was also noted to have acute DVT of the right popliteal vein as well as occlusive thrombus involving the left basilic vein. The patient was started on Lovenox 1 mg per kg subcutaneous twice daily. She has been evaluated by GI and is currently undergoing bowel prep for a scheduled colonoscopy in a.m. She has noticed no evidence of bleeding. Her hemoglobin was 11.8, and platelets of 204,000. The patient denies any previous history of blood clots. Her daughter also had a superficial clots in her upper extremity last year. Her father in much older age she says has had a history of pulmonary embolism. Her sister does have a history of colon cancer diagnosed at age 61 with permanent colostomy. The patient herself has never had a colonoscopy performed. She does get annual mammograms as well as Pap smears. She denies any recent extended travel or trauma to the lower extremity. PAST MEDICAL HISTORY: 1. Recent infectious colitis, on antibiotics. 2. Hypertension. 3. History of cardiac arrhythmia, status post ablation, previously on PATIENT NAME: GILLIAN VERDUGO antiplatelet therapy with aspirin. 4. Dyslipidemia. PAST SURGICAL HISTORY: Tubal ligation. SOCIAL HISTORY: No smoking, alcohol, or illicit drug use. Works at [employer] near [place]. FAMILY HISTORY: Sister with history of colon cancer diagnosed at age 61. No history of clotting disorders, otherwise except for her father, further details unknown. MEDICATIONS: As per MAR. ALLERGIES: CODEINE. REVIEW OF SYSTEMS: A 14-point review of systems as noted to be negative unless otherwise mentioned in HPI. PHYSICAL EXAMINATION: VITAL SIGNS: Blood pressure 128/85, pulse 75, respiratory rate 14, and temperature 36.6 degrees, and O2 saturation 97% on room air. GENERAL: Pleasant female, sitting up in bed, in no acute distress. HEENT: Normocephalic, atraumatic. Pupils are reactive to light and accommodation. Extraocular muscles intact. Oral mucosa dry. NECK: Supple. No JVD. No carotid bruit. LUNGS: Clear to auscultation bilaterally. CARDIAC: S1, S2 positive. Regular rhythm. ABDOMEN: Soft, nontender, nondistended. Bowel sounds positive. EXTREMITIES: No edema in bilateral lower extremities. NEUROLOGIC: Grossly nonfocal. Cranial nerves II through XII intact. SKIN: No rash or bruising seen. PSYCHIATRIC: The patient is awake and oriented to time, person, and place. LABORATORY DATA: Sodium 140, potassium 3.8, chloride 105, bicarbonate 30, BUN 13, creatinine 0.6, glucose 96, calcium 8.1, ALT 40, AST 48, alkaline phosphatase 57, albumin 2.8, corrected calcium approximately 9. CBC; WBC 3.9, hemoglobin 11.8, hematocrit 36.7, and platelets 204, MCV of 98.4, RDW 13. PT 11.7, INR 1.1. COVID-[address] angio of the chest as well as lower extremity ultrasound as mentioned in HPI. ASSESSMENT AND PLAN: 1. Acute right lower lobe pulmonary embolism along with acute right lower extremity deep venous thromboses, suspected to be provoked secondary to prolonged immobility. 2. Superficial left upper extremity thrombus (left cephalic vein) secondary to recent IV insertions from hospitalization. 3. History of cardiac arrhythmia, status post ablation. 4. Recent diagnosis of infectious colitis, on antibiotics. 5. Hypertension. PLAN: 1. Continue Lovenox 1 mg/kg subcutaneous daily for now. Monitor signs clinically for bleeding. Her hemoglobin is quite stable at this time. The PATIENT NAME: GILLIAN VERDUGO patient is scheduled for colonoscopy in a.m. to rule out underlying malignancy as cause of hematochezia. Her blood counts remained stable and no clinical evidence of bleeding noted (also depend on colonoscopy findings), we would then transition over to newer oral anticoagulant such as Eliquis 10 mg oral twice daily x7 days, followed by 5 mg oral twice daily. We would anticoagulate likely for 3 months total as this is probably a provoked event from prolonged immobility. 2. Continue current antibiotics, Rocephin and Flagyl secondary to recent infectious colitis. 3. Blood pressure management as per primary team. 4. GI consultation Dr. Pereyra appreciated. Thank you for the consultation. We will follow alongside as the patient remains hospitalized. Dictated By: Rigoberto Chambers MD WT: CON:PAGE/ELEAZAR/RONNIE Conf#: [id number]/DID#: [id number] Authenticated by Rigoberto Chambers MD On 04/22/2020 05:25:14 PM at 1725 PATIENT NAME: GILLIAN VERDUGO 11:34:00 [id number] [place] [address] PATIENT NAME: GILLIAN VERDUGO ADMIT DATE: 03/22/20 ACCOUNT NO: [id number] ROOM NO: .5531 AGE: 65 REPORT TYPE: CONSULTATION REPORT SEX: F ADMITTING PHYSICIAN:Gonzalo Morris DO ATTENDING PHYSICIAN:Gonzalo Morris DO CONSULTATION DATE: CONSULTING PHYSICIAN: Mariah Pereyra MD GI CONSULTATION NOTE CONSULTING PHYSICIAN: Dr. Morris. REASON FOR CONSULT: 1. New diagnosis of PE and left upper extremity DVT, need of anticoagulation. 2. Severe colitis, needing hospitalization at [facility] from 03/17/2020 to 03/20/2020, no colonoscopy was done. 2. Recent diagnosis of colon cancer in sister. 3. Negative Cologuard test done in January of 2020. HISTORY OF PRESENT ILLNESS: A 65-year-old female with past medical history as noted below. At the time of my interview, the patient reports she has been having soft, dark mushy bowels. Evidently, she had severe colitis that was managed conservatively last week at [facility]. Since then, the patient returned home. Thereafter, she noticed left arm swelling and foot swelling and has been diagnosed with DVTs and PE. She has been started on anticoagulation. At the time of my interview, she otherwise seems comfortable. PAST MEDICAL HISTORY: Hypertension, hyperlipidemia, depression, and history of heart ablation done in her 30s. PAST SURGICAL HISTORY: Tubal ligation. FAMILY HISTORY: Sister with colon cancer. SOCIAL HISTORY: No tobacco. Positive for wine drinking once in 3 months. Lives in [place]. REVIEW OF SYSTEMS: GENERAL: No weight gain and/or loss. Denies fever and chills. EYES: Negative for vision changes and eye irritation. EARS, NOSE, THROAT: No oral lesions. No sore throat. No ear pain or sinus congestion. CARDIAC: Denies chest pain, diaphoresis, orthopnea, and palpitations. PULMONARY: Denies shortness of breath, cough, and hemoptysis. GASTROINTESTINAL: As per HPI. GENITOURINARY: No dysuria. No discharge. No hematuria. MUSCULOSKELETAL: No muscle pain. No joint abnormalities. PATIENT NAME: GILLIAN VERDUGO DERMATOLOGIC: No skin rashes. No skin ulceration. PSYCHIATRIC: No depression. No anxiety. NEUROLOGIC: No headache. No dizziness. No numbness. No tingling. ENDOCRINE: Negative for polyuria, polydipsia, and polyphagia. ALLERGIES: No allergic rhinitis. No pruritis. ALLERGIES: CODEINE. PHYSICAL EXAMINATION: VITAL SIGNS: Stable. GENERAL: The patient is awake, alert, and oriented x3, and is in no apparent distress. EYES: No pallor and icterus noted. Pupils equal, round, and reactive to light and accommodation. Extraocular muscles intact. EARS, NOSE, THROAT: No oral lesions. No oropharyngeal erythema. Nares patent. NECK: No lymphadenopathy. Supple. HEART: Regular rate and rhythm. S1, S2 heard. LUNGS: Clear to auscultation bilaterally. No wheezes or crackles. ABDOMEN: Soft. Mild tenderness diffusely. No guarding. No rigidity. GENITOURINARY AND RECTAL: Deferred. EXTREMITIES: The bilateral lower extremities are without clubbing, cyanosis, or edema. The bilateral upper extremities are unremarkable. SKIN: No rashes. No skin ulcerations. NEUROLOGIC: Sensory and motor grossly intact. MUSCULOSKELETAL: No muscle fasciculations and atrophy noted. GENERAL: The crackles. IMPRESSION: 1. New diagnosis of deep venous thrombosis and pulmonary embolism. Currently, the patient would be on anticoagulation. Likely, the risk factors could be related to recent attack of severe colitis and hospitalizations and IV placements. However, since she has significant family history of colon cancer, she will benefit from a colonoscopy. 2. Severe colitis. At this point of time, the patient is quite worried and her daughter, Debra, who I spoke to over the phone, is worried that a colonoscopy was not done during her hospitalization last week. 3. At this point of time, considering she will be on anticoagulation and there is a likelihood that she could have still underlying chances of malignancy, we will undertake a colonoscopy tomorrow morning. I had had a lengthy discussion with the patient and the patient's daughter and we will plan colonoscopy tomorrow morning. Dictated By: Mariah Pereyra MD WT: CON:PAGE/HOLLY/RONNIE Conf#: [id number]/DID#: [id number] Authenticated by Mariah Pereyra MD On 04/04/2020 07:25:38 AM PATIENT NAME: GILLIAN VERDUGO at 0726 PATIENT NAME: GILLIAN VERDUGO 09:02:00 [facility] ([facility] Clinical Note REPORT#:[id number] REPORT STATUS: Signed DATE:03/23/20 TIME: 901 PATIENT: GILLIAN VERDUGO UNIT #: [id number] ROOM/BED: 5531-1 : 54 AGE: 65 SEX: F ATTEND: Gonzalo Morris DO ADM AUTHOR: Vimal Maldonado MD * ALL edits or amendments must be made on the electronic/computer document * Clinical Note Note: SEEN BY DR. MORRIS THIS AM, H/O HTN, RECENT INFECTIOUS HEMORRHAGIC COLITIS, TRT, NOW IATROGENIC LEFT ARM DVT/PE DUE TO IV ACCESS, ON FULL LOVENOX, GI/PULM/HEMAT TO DETERMINE FINANCIAL REPRESENTATIVE AC VS NEED FOR TEMPORARY IVC FILTER? AT LEAST NO ACTIVE GI BLEED NOW, MOST LIKELY HEALED FROM COLITIS. at 0906 [facility] #:[id number] END OF [id number] 00:12:00 [facility] ([facility]) Hospitalist History Physical REPORT#:[id number] REPORT STATUS: Signed DATE:03/23/20 TIME: 0012 PATIENT: GILLIAN VERDUGO UNIT #: [id number] ROOM/BED: [place] [address] : 54 AGE: 65 SEX: F ATTEND: Gonzalo Morris DO ADM AUTHOR: Gonzalo Morris DO * ALL edits or amendments must be made on the electronic/computer document * History of Present Illness HPI Chief [facility] HPI: Gillian is a 65-year-old female with a past medical history of recently diagnosed GI bleed, colitis, depression, hypertension, hyperlipidemia who presents to the hospital as a transfer from [facility] ED after she initially went to the ED with a chief complaint of worsening pain in her left arm where she had an IV and was diagnosed with DVTs as well as PE. The patient had been in the hospital at [facility] in [place] where she was diagnosed with infectious colitis and hematochezia and aspirin was stopped. The patient was discharged with oral antibiotics which she is still taking. She denies any chest pain or shortness of breath but states she started having worsening pain and swelling in her left arm where her IV was. Patient was also having some swelling in her right leg. She denies any fevers or chills. She denies any abdominal pain, urinary complaints, bowel complaints. CTA was notable for pulmonary embolism involving the right lower lobe pulmonary artery extending into the segmental branches with almost complete occlusion of the right lower lobe anterior segmental branch. No saddle embolism or right ventricular strain. The patient also had a focally occlusive thrombus involving the left basilic vein and was also diagnosed with acute DVT of the right popliteal vein. Patient currently denies any complaints. History Additional medical history: GI bleed, colitis, depression, hypertension, hyperlipidemia Additional surgical history: Tubal ligation Additional family history: Reports daughter who is also gotten blood clots in the past Additional social history: Denies smoking, alcohol use, recreational drug use, works at [employer] Medication/Allergy-Vaccine Hx Home Medications: LISINOPRIL/HCTZ (ZESTORETIC 10/12.5 MG) 1 TAB PO DAILY PRAVASTATIN (PRAVACHOL) 20 MG PO BEDTIME VENLAFAXINE (EFFEXOR) 100 MG PO BEDTIME Allergies: Coded Allergies: codeine (Severe, NAUSEA 03/23/20) Review of Systems Free Text ROS Notes: Free Text ROS Notes: 14 point review of systems reviewed and negative unless otherwise noted in HPI Objective General VS/I O: Vital Signs: Date Time Temp Pulse Resp B/P B/P Pulse O2 O2 Flow FiO2 Mean Ox Delivery Rate 03/23 0017 98.2 70 16 148/81 103.5 97 24 hour I O ending at 0700: 03/23 0700 03/22 1900 Intake Total Output Total Balance Patient 87 kg Weight Weight Bed scale Measurement Method Patient Weight Weight (lb): 191 Weight (oz): 12.83 Weight (kg): 87.000 Medications: Active Meds + DC'd Last 24 Hrs Pravastatin Sodium 20 MG BEDTIME PO Venlafaxine HCl 75 MG BEDTIME PO Hydrochlorothiazide 12.5 MG DAILY PO Lisinopril 10 MG DAILY PO Ceftriaxone Sodium 1,000 MG Q24H IV Sodium Chloride 10 ML Metronidazole/Sodium Chloride 100 ML Q8H IV Miscellaneous Information 1 EACH ASDIR SUBQ (PEND) Acetaminophen 650 MG Q4H PRN PRN PO Docusate Sodium 100 MG BID PRN PRN PO Ondansetron HCl 4 MG Q4H PRN PRN IV Physical Exam General appearance: alert, awake, oriented Head/Eyes: clear cornea, EOMI ENT: moist mucosal membranes Neck: non-tender, supple/no meningismus Cardiovascular: normal heart sounds, regular rate rhythm Respiratory: aerating well, clear to auscultation, symmetric expansion Abdomen: non-tender, normal bowel sounds, soft Extremities: L arm thrombophembitis, R LE swelling Neuro/WOUND/OSTOMY CLINICAL NURSE SPECIALIST: alert, oriented X 3 Skin: dry, intact Diagnosis, Assessment Plan Free Text DxA P Notes Free text DxA P notes: Assessments -Acute pulmonary embolism -DVT -Superficial thrombophlebitis -Recent GI bleed -Infectious colitis -Depression -Hypertension -Hyperlipidemia Plan -Received Lovenox x1 in freestanding ED, continue for now, no evidence of active bleeding currently -Continue antibiotics, Rocephin and Flagyl -Gastroenterology, hematology, pulmonology evaluation -Continue indicated home medications -Regular diet -Monitor on telemetry -DVT prophylaxis: Full dose Lovenox at 0650 RPT #:[id number] END OF REPORTHCACL
--- NOTE | 2024-12-17 22:21 | RAD REPORT ---
EXAMINATION: US RIGHT UPPER EXTREMITY VENOUS DOPPLER CLINICAL INDICATION: Swelling;Pain RIGHT TECHNIQUE: Complete bilateral duplex sonography of the RIGHT upper extremity veins was performed. The examination included compression for vein patency, color Doppler imaging and flow augmentation in response to distal compression of the internal jugular, brachiocephalic, subclavian, axillary, brachi al, radial, ulnar, cephalic and basilic veins. COMPARISON: No prior exam. FINDINGS: Duplex sonography testing of the veins of the RIGHT upper extremity was performed. Color flow imaging shows all veins to be compressible with [id number] color filling. Pulsatile and phasic flow is present within all upper extremity deep and superficial veins examined. IMPRESSION: There is no deep vein or superficial vein thrombosis.
--- NOTE | 2024-12-17 22:49 | EDPHYS ---
Physician Documentation [facility] Name: Starr Verdugo Age: 69 yrs Sex: Female : 1955 Arrival Date: 12/17/2024 Time: 20:54 Bed 24 Private MD: ED Physician Mehdi Torres HPI: 12/17 22:20 This 69 yrs old Female presents to ER via Ambulatory with complaints of Arm Pain, sb4 brusing to upper right arm. 23:31 Patient reports pain and bruising to her right bicep area. States that she received a sb4 cortisone injection in her right shoulder a few days ago for chronic shoulder pain. States that she wore a noncompression sleeve on her right bicep today to help with pain, but when she took off the sleeve, she noticed bruising in the bicep region. 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 She has not been on Eliquis in several years. Historical: - Allergies: 21:34 No Known Allergies; dd2 - PMHx: 21:34 Atrial fibrillation; Depression; Hypertension; RT ROTATOR CUFF TEAR; dd2 - PSHx: 21:34 Cardiac Ablation; dd2 - Immunization history:: Adult Immunizations up to date. - Infectious Disease History:: Denies. - Social history:: Smoking status: Patient denies any tobacco usage or history of. ROS: 23:31 Constitutional: Negative for fever, chills, and weight loss, sb4 23:31 MS/extremity: Positive for ecchymosis, pain, of the right bicep, 23:31 All other systems are negative, Exam: 23:31 Constitutional: This is a well developed, well nourished patient who is awake, alert, sb4 and in no acute distress. Head/Face: Normocephalic, atraumatic. Eyes: Extra-ocular motions intact. Periorbital areas with no swelling, redness, or edema. ENT: Mucous membranes moist. Respiratory: No increased work of breathing, no retractions or nasal flaring. 23:31 Musculoskeletal/extremity: ROM: full active range of motion, full passive range of motion, Circulation is intact in all extremities. Pulses: are normal with no appreciated deficits, Perfusion: the extremity is normally perfused throughout, Edema, is not appreciated, Sensation intact. 23:31 Skin: injury, Ecchymosis right bicep, Vital Signs: 21:28 BP 143 / 66; Pulse 85; Resp 16; Temp 97.9(O); Pulse Ox 100% on R/A; Weight 89.81 kg dd2 (R); Height 5 ft. 8 in. ; Pain 5/10; 21:28 Body Mass Index 30.11 (89.81 kg, 172.72 cm) dd2 21:28 Pain Scale: Adult dd2 MDM: 21:31 Medical Screening Exam initiated sb4 23:33 Data reviewed: vital signs, nurses notes, radiologic studies, and as a result, I will sb4 discharge patient. Counseling: I had a detailed discussion with the patient and/or guardian regarding the historical points, exam findings, and any diagnostic results supporting the discharge/admit diagnosis, radiology results, the need for outpatient follow up, for definitive care, to return to the emergency department if symptoms worsen or persist or if there are any questions or concerns that arise at home. 12/17 21:50 Order name: UPPER EXTREMITY VENOUS UNILATE; Complete Time: 22:30 EDMS Administered Medications: No medications were administered Disposition: 12/18 01:30 Co-signature as Attending Physician, Mehdi Torres MD I agree with the assessment sp4 and plan of care. I reviewed the patient's care provided by the Advanced Practice Provider and agree with the diagnosis and treatment plan. Disposition Summary: 12/17/24 22:49 Discharge Ordered Notes: Location: Home sb4 Problem: new sb4 Symptoms: are unchanged sb4 Condition: Stable sb4 Diagnosis - Pain in right upper arm - ecchymosis sb4 Followup: sb4 - With: Private Physician - When: 2 - 3 days - Reason: Further diagnostic work-up, Recheck today's complaints, Re-evaluation by your physician Discharge Instructions: - Discharge Summary Sheet sb4 - Musculoskeletal Pain sb4 - How to Use Cold Therapy, [id number] sb4 Forms: - Patient Portal Instructions sb4 - Leadership Thank You Letter sb4 Signatures: Dispatcher [employer] EDEvelia Tineo PA-C PA-C sb4 Mehdi Torres MD MD sp4 MICA SALDAÑA RN RN dd2 Corrections: (The following items were deleted from the chart) 03/24 21:35 21:34 Allergies: Codeine; dd2 dd2 21:50 21:45 Extremity Venous Uni [email or web address] ordered. EDMS EDMS
--- NOTE | 2024-12-17 22:49 | ER ---
Nurse's Notes [facility] Name: Starr Verdugo Age: 69 yrs Sex: Female : 1955 Arrival Date: 12/17/2024 Time: 20:54 Bed 24 Private MD: Diagnosis: Pain in right upper arm-ecchymosis Presentation: 12/17 21:28 Chief complaint: Patient states: WORE A NON-COMPRESSION WRAP TO RT UPPER ARM DUE TO dd2 ROTATOR CUFF TEAR AND FELT PAIN TO THE RIGHT UPPER ARM MUSCLE. REPORTS WHEN SHE REMOVED THE WRAP, PAIN AND RED/PURPLE BRUISING APPEARED. PT REPORTS HX OF DVT. Coronavirus screen: At this time, the client does not indicate any symptoms associated with coronavirus-19. Ebola Screen: No symptoms or risks identified at this time. Initial Sepsis Screen: Does the patient meet any 2 criteria? No. Patient's initial sepsis screen is negative. Does the patient have a suspected source of infection? No. Patient's initial sepsis screen is negative. Risk Assessment: Do you want to hurt yourself or someone else? Patient reports no desire to harm self or others. Onset of symptoms was December 17, 2024. 21:28 Method Of Arrival: Ambulatory dd2 21:28 Acuity: RODERICK 3 dd2 Triage Assessment: 21:34 General: Appears in no apparent distress. uncomfortable, Behavior is calm, cooperative, dd2 appropriate for age. Pain: Complains of pain in right bicep and right tricep Pain does not radiate. Pain currently is 5 out of 10 on a pain scale. Derm: Bruising that is bright red, dark purple, on right bicep and right tricep. Historical: - Allergies: 21:34 No Known Allergies; dd2 - PMHx: 21:34 Atrial fibrillation; Depression; Hypertension; RT ROTATOR CUFF TEAR; dd2 - PSHx: 21:34 Cardiac Ablation; dd2 - Immunization history:: Adult Immunizations up to date. - Infectious Disease History:: Denies. - Social history:: Smoking status: Patient denies any tobacco usage or history of. Screenin:56 [facility] ED Fall Risk Assessment (Adult) History of falling in the last 3 months, jb4 including since admission No falls in past 3 months (0 pts) Confusion or Disorientation No (0 pts) Intoxicated or Sedated No (0 pts) Impaired Gait No (0 pts) Mobility Assist Device Used No (0 pt) Altered Elimination No (0 pt) Score/Fall Risk Level 0 - 2 = Low Risk Oriented to surroundings, Maintained a safe environment. Abuse screen: Denies threats or abuse. Nutritional screening: No deficits noted. Tuberculosis screening: No symptoms or risk factors identified. Assessment: 22:56 Reassessment: Patient appears in no apparent distress at this time. Patient and/or jb4 family updated on plan of care and expected duration. Pain level reassessed. Patient is alert, oriented x 3, equal unlabored respirations, skin warm/dry/pink. Vital Signs: 21:28 BP 143 / 66; Pulse 85; Resp 16; Temp 97.9(O); Pulse Ox 100% on R/A; Weight 89.81 kg dd2 (R); Height 5 ft. 8 in. ; Pain 5/10; 21:28 Body Mass Index 30.11 (89.81 kg, 172.72 cm) dd2 21:28 Pain Scale: Adult dd2 ED Course: 20:58 Patient arrived in ED. gm2 21:02 Evelia Padilla PA-C is PHCP. sb4 21:02 Mehdi Torres MD is Attending Physician. sb4 21:34 Triage completed. dd2 21:36 Arm band placed on right wrist. dd2 22:09 UPPER EXTREMITY VENOUS UNILATE In Process Unspecified. EDMS 22:56 Patient has correct armband on for positive identification. Bed in low position. Call jb4 light in reach. Side rails up X 1. Provided Education on: discharge instructions.. 22:56 No provider procedures requiring assistance completed. Patient did not have IV access jb4 during this emergency room visit. Administered Medications: No medications were administered Medication: 22:56 VIS not applicable for this client. jb4 Outcome: 22:49 Discharge ordered by . sb4 22:56 Discharged to home ambulatory, jb4 22:56 Condition: stable 22:56 Discharge instructions given to patient, Instructed on discharge instructions, follow up and referral plans. Demonstrated understanding of instructions, follow-up care, 22:59 Patient left the ED. jb4 Signatures: Dispatcher [employer] EDMS Benito Beltran RN RN [email or web address] Evelia Padilla PA-C PA-C sb4 Anjana Cehek gm2 MICA SALDAÑA, RN RN dd2 Corrections: (The following items were deleted from the chart) 21:35 21:34 Allergies: Codeine; dd2 dd2
[2024-12-17 23:25] VITALS: BP 143/66; TEMP 97.9; O2SAT 100
== END 2024-12-17 22:59 | disposition home or self-care (01) ==
LOC: ER 20:54
DX: S40.021A Contusion of right upper arm, initial encounter (principal)
CPT/HCPCS: 93971; 99282